=== PATIENT | male | born 1935 | race Caucasian/White ===

== ENCOUNTER → 2016-04-13 | Outpatient (CLI) | payer MEDICARE ==
[2016-04-13 12:14] LABS: Basophils # (A) 0.1 k/uL (0-0.2); Basophils % (A) 1 %; CH 30.5; CHCM 33.7; Eosinophils # (A) 0.3 k/uL (0-0.7); Eosinophils % (A) 3 %; HCT 48.2 % (39.0-53.0); HDW 3.04; HGB 15.8 gm/dL (13.0-17.5); Luc # (Auto) 0.09; Luc % (Auto) 1; Lymphocytes # (A) 1.3 k/uL (1.0-4.8); Lymphocytes % (A) 15 %; MCH 29.8 pg (25.0-35.0); MCHC 32.7 g/dL (31.0-37.0); MCV 91.1 fL (80.0-100.0); Mean Platelet Volume 7.8; Monocytes # (A) 0.5 k/uL (0-1.0); Monocytes % (A) 5 %; Neutrophils # (A) 6.4 k/uL (1.3-7.7); Neutrophils % (A) 75 %; RBC 5.28 m/uL (4.30-5.90); RDW 13.3 % (11.5-15.5); WBC 8.5 k/uL (3.8-10.6); WBC (Perox) 8.75
[2016-04-13 12:31] LABS: ALT 21 U/L (21-72); AST 18 U/L (17-59); Alkaline Phosphatase 74 U/L (38-126); Anion Gap 12 mmol/L; Blood Urea Nitrogen 15 mg/dL (9-20); C Reactive Protein 32.4 mg/L (<10.0); Calcium 9.8 mg/dL (8.4-10.2); Carbon Dioxide 30 mmol/L (22-30); Chloride 103 mmol/L (98-107); Creatine Kinase 41 U/L (55-170); Glucose 231 mg/dL (74-99); Non-African American GFR(MDRD) >60 (>60 ml/min/1.73 sqM); Potassium 4.5 mmol/L (3.5-5.1); Sodium 145 mmol/L (137-145); Total Bilirubin 0.9 mg/dL (0.2-1.3); Total Protein 7.4 g/dL (6.3-8.2)
--- NOTE | 2016-04-13 12:56 | XR ---
EXAMINATION TYPE: XR Hip Bilateral Complete DATE OF EXAM: 04/13/2016 12:25 PM COMPARISON: NONE TECHNIQUE: 4 views of the hip are submitted bilaterally. HISTORY: Pain There is no evidence of erosive change or acute fracture. Diffuse osteopenia noted. Moderate narrowing of the hip joints seen bilaterally with hypertrophic bianka nges. No acute fracture. Impression 1. Moderate arthropathy bilaterally with findings suggestive of femoral acetabular impingement.
--- NOTE | 2016-04-13 12:58 | XR ---
EXAM TYPE: LUMBAR SPINE X RAY SERIES COMPARISON: NONE HISTORY: Back pain TECHNIQUE: 4 views are submitted. FINDINGS: Alignment is anatomic. The pedicles are intact. The transverse processes are intact. There is no s pondylolysis or spondylolisthesis. There are 3 calcifications overlying the right kidney the largest measuring 5 mm. Severe degenerative disc disease L4-5 with facet arthropathy. Moderate degenerative disc disease L3-4 and L5-S1. Vascular calcification seen. IMPRESSION: 1. Multilevel degenerative disc disease. 2. Right renal calculi.
[2016-04-13 13:10] LABS: Hemoglobin A1C 6.7 % (4.2-6.1)
[2016-04-13 13:18] LABS: Vitamin B12 270 pg/mL
[2016-04-13 14:44] LABS: Erythrocyte Sedimentation Rate 18 mm/hr (0-15)
[2016-04-13 17:11] LABS: ANA w/Reflex to Titer POSITIVE (NEGATIVE)
== END ==
LOC: LABWHC1 11:48
PROVIDERS: ATTEND Internal Medicine
DX: M16.0 Bilateral primary osteoarthritis of hip (principal); M51.36 Other intervertebral disc degeneration, lumbar region; E11.9 Type 2 diabetes mellitus without complications; M35.3 Polymyalgia rheumatica; R53.1 Weakness
CPT/HCPCS: 36415; 72110; 73521; 80053; 82533; 82550; 82607; 83036; 84165; 84439; 84443; 85025; 85652; 86038; 86039; 86140; 86225; 86334; 86335

== ENCOUNTER → 2016-04-17 | Outpatient (CLI) | payer MEDICARE ==
[2016-04-19 11:06] LABS: Free Kappa Lt Chain Qnt, Serum 1.79 mg/dL (0.33 - 1.94); Kappa/Lambda Light Chain Ratio 1.67 (0.26 - 1.65)
== END | disposition home or self-care (01) ==
LOC: LABWHC1 09:03
PROVIDERS: ATTEND Internal Medicine
DX: Z03.89 Encounter for observation for other suspected diseases and conditions ruled out (principal)
CPT/HCPCS: 36415; 83883

== ENCOUNTER → 2016-04-27 | Outpatient (CLI) | payer MEDICARE ==
--- NOTE | 2016-04-27 12:37 | MR ---
EXAMINATION TYPE: MR lumbar spine wo/w con DATE OF EXAM: 04/27/2016 7:35 AM COMPARISON: Radiographs 04/13/2016 HISTORY: 81-year-old male with degenerative disc disease, DJD, hip and leg pain, history of lumbar winkler rgeries Technique: Multiplanar, multisequence images of the lumbar spine were obtained before and after admin istration of 20 mL intravenous MultiHance gadolinium contrast. FINDINGS: Vertebral body heights are preserved. Alignment is maintained. Heterogeneous marrow signal with fatty matrix hemangioma within T12 and S1 vertebral bodies. No suspi cious bone marrow replacement. There is multilevel moderate degenerative disc disease characterized by desiccated and bulging discs. Moderate disc interspace narrowing at L4-L5 with fatty Modic type II endplate changes anteriorly at this level and to a lesser extent at other levels in the upper to mid lumbar spine. There are endplate Schmorl's nodes involving L1-L2, L2-L3, and L3-L4. There appears to be prior right-sided L5 laminotomy defect. Hypertrophic facet arthropathy mid to lower lumbar spine. There is a component of mild congenital spinal canal narrowing in the lumbar spine with AP canal dime nsion of 1.2 cm. Conus medullaris is normal. At T12-L1, mild diffuse disc bulge and no significant spinal canal or neuroforaminal stenosis. At L1-L2, diffuse disc bulge and facet degenerative change with ligamentum flavum thickening. Changes accentuate the mild congenital spinal canal stenosis and also contribute to minimal bilateral inferi or neuroforaminal stenosis. At L2/L3, there is diffuse disc bulge with ligamentum flavum thickening, facet arthropathy, and promi nent dorsal epidural fat. Changes result in a moderate spinal canal stenosis. Some CSF signal remains visualized. There is mild bilateral neural foraminal stenosis. At L3-L4, diffuse disc bulge with facet arthropathy and ligamentum flavum thickening. Changes result in bilateral lateral recess stenosis with moderate spinal canal stenosis. Some CSF signal remains vis ualized. There is also moderate bilateral neural foraminal stenosis. At L4-L5, bilateral hypertrophic facet arthropathy. Eccentric right intraforaminal disc protrusion. L igamentum flavum thickening. No significant spinal canal stenosis. However, disc material and facet s purring probably abuts the traversing right L5 nerve root. There is moderate to severe right and mode rate left neural foraminal stenosis. At L5-S1, diffuse disc bulge and facet degenerative change. Changes result in mild left and mild-to-m oderate right neuroforaminal stenosis without spinal canal stenosis. There is a 6 mm focus of enhancement that appears intradural opposite the L1 level posteriorly along the midline second smaller 4 mm focus at the L2-L3 level along the midline. No suspicious perineural enhancement. No prevertebral or paravertebral soft tissue abnormality seen. IMPRESSION: 1. Moderate multilevel degenerative disc disease with scattered Modic type II endplate change, greate st at L4-L5. Additional hypertrophic facet arthropathy. 2. 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 3. Previous right L5 laminotomy defect. No suspicious perineural enhancement. 4. The spinal canal at L2-L3 and L3-L4 is tight with moderate spinal canal stenoses. 5. There is a right intraforaminal disc protrusion at L4-L5. Disc material may abut the traversing ri ght L5 nerve root here. Variable moderate neuroforaminal stenoses as outlined above, greatest on the right at L4-L5. 6. A 6 mm and 4 mm focus of enhancement at the L1 and L2-L3 level, respectively, located within the c entral aspect of the spinal canal. Findings may represent small nerve sheath tumors or meningiomas. C onsider 6 month follow-up exam.
== END | disposition home or self-care (01) ==
LOC: RADMRIMAIN 06:41
PROVIDERS: ATTEND Internal Medicine
DX: M51.36 Other intervertebral disc degeneration, lumbar region (principal); M99.73 Connective tissue and disc stenosis of intervertebral foramina of lumbar region; M51.26 Other intervertebral disc displacement, lumbar region; M46.96 Unspecified inflammatory spondylopathy, lumbar region; Z98.890 Other specified postprocedural states
CPT/HCPCS: 72158; A9577

== ENCOUNTER → 2016-07-05 | Outpatient (CLI) | payer MEDICARE ==
[2016-07-06 03:14] LABS: Lyme Antibodies Total(IgG/IgM) 0.09 (<0.90)
[2016-07-11 21:16] LABS: Mercury Whole Blood < 2 mcg/L (< 11)
== END | disposition home or self-care (01) ==
LOC: LABWHC1 09:15
PROVIDERS: ATTEND Internal Medicine
DX: G62.9 Polyneuropathy, unspecified (principal)
CPT/HCPCS: 36415; 82175; 82570; 83655; 83825; 84165; 86618

== ENCOUNTER 2016-07-15 14:14 | Emergency (ER) | payer MEDICARE ==
[2016-07-15 14:20] VITALS: BP 154/77; PULSE 111; RESP 18; TEMP 97.4
--- NOTE | 2016-07-15 14:36 | ED ---
General Adult HPI - General Chief complaint: Abdominal Pain Stated complaint: Constipation Time Seen by Provider: 07/15/16 14:27 Source: patient, RN notes reviewed Mode of arrival: ambulatory Limitations: no limitations - History of Present Illness Initial comments: Patient 81-year-old male who presents emergency room today with chief complaint of constipation. Patient does admit that he's been 2 days since had a bowel movement. He does admit that he feels some pressure in his rectum. States feels like he needs to have a bowel movement but has been unable to. States he does take a fiber tab. Patient states been unable to have bowel movement last 2 days. He denies any other complaints or symptoms. - Related Data Home Medications Medication Instructions Recorded Confirmed Tamsulosin HCl [Flomax] 0.4 mg PO HS 10/06/13 07/15/16 metFORMIN HCL [Glucophage] 500 mg PO DAILY 10/06/13 07/15/16 Aspirin 81 mg PO DAILY 07/15/16 07/15/16 Cholecalciferol [Vitamin D3] 1,000 unit PO DAILY 07/15/16 07/15/16 Cyanocobalamin [Vitamin B-12] 500 mcg PO DAILY 07/15/16 07/15/16 Dutasteride [Avodart] 0.5 mg PO HS 07/15/16 07/15/16 Magnesium Oxide [Magnesium] 500 mg PO DAILY 07/15/16 07/15/16 Saw Jeffers 1,200 mg PO DAILY 07/15/16 07/15/16 Allergies Allergy/AdvReac Type Severity Reaction Status Date / Time No Known Allergies Allergy Verified 07/15/16 14:39 Review of Systems ROS Statement: Those systems with pertinent positive or pertinent negative responses have been documented in the HPI. ROS Other: All systems not noted in ROS Statement are negative. Past Medical History Past Medical History: Diabetes Mellitus Additional Past Medical History / Comment(s): neuropathy History of Any Multi-Drug Resistant Organisms: None Reported Past Surgical History: Back Surgery, Bowel Resection Past Psychological History: No Psychological Hx Reported Smoking Status: Never smoker Past Alcohol Use History: None Reported Past Drug Use History: None Reported General Exam - General Exam Comments Initial Comments: General: The patient is awake and alert, in no distress, and does not appear acutely ill. Eye: Pupils are equal, round and reactive to light, extra-ocular movements are intact. No nystagmus. There is normal conjunctiva bilaterally. No signs of icterus. Ears, nose, mouth and throat: There are moist mucous membranes and no oral lesions. Neck: The neck is supple, there is no tenderness or JVD. Cardiovascular: There is a regular rate and rhythm. No murmur, rub or gallop is appreciated. Respiratory: Lungs are clear to auscultation, respirations are non-labored, breath sounds are equal. No wheezes, stridor, rales, or rhonchi. Gastrointestinal: Soft, non-distended, non-tender abdomen without masses or organomegaly noted. There is no rebound or guarding present. No CVA tenderness. Bowel sounds are unremarkable. Musculoskeletal: Normal ROM, no tenderness. Strength 5/5. Sensation intact. Pulses equal bilaterally 2+. Neurological: A&O x 3. CN II-XII intact, There are no obvious motor or sensory deficits. Coordination appears grossly intact. Speech is normal. Skin: Skin is warm and dry and no rashes or lesions are noted. Psychiatric: Cooperative, appropriate mood & affect, normal judgment. Limitations: no limitations Course Vital Signs 07/15/16 14:17 Temperature 97.4 F L Pulse Rate 111 H Respiratory 18 Rate Blood Pressure 154/77 O2 Sat by Pulse 96 Oximetry Medical Decision Making - Medical Decision Making Patient was able have bowel movement here in the emergency room after a enema. He states she's feeling much better at this time. Patient will be discharged home. Disposition Clinical Impression: Constipation Disposition: HOME SELF-CARE Condition: Good Instructions: Constipation (ED) Additional Instructions: Please follow-up with family doctor in the next 2 days of symptoms have not improved. Please return to emergency room if the symptoms increase or worsen or for any other concerns. Referrals: Armand Han MD [Primary Care Provider] - 1-2 days Time of Disposition: 15:29
--- NOTE | 2016-07-15 14:50 | XR ---
EXAMINATION TYPE: XR KUB DATE OF EXAM ORDERED: 07/15/2016 HISTORY: pain. COMPARISON: Previous study dated 06/25/2012. FINDINGS: The abdominal gas pattern is within normal limits. There is no evidence of obstruction or free air. No unusual calcifications are seen. There are mild degenerative changes within the spine. IMPRESSION: NO ACUTE INTRA-ABDOMINAL ABNORMALITY.
== END 2016-07-15 15:38 | disposition home or self-care (01) ==
LOC: EC 14:14
DX: K59.00 Constipation, unspecified (principal); E11.9 Type 2 diabetes mellitus without complications; Z79.82 Long term (current) use of aspirin; Z79.84 Long term (current) use of oral hypoglycemic drugs; Z79.899 Other long term (current) drug therapy; Z90.49 Acquired absence of other specified parts of digestive tract
CPT/HCPCS: 74000; 99284

== ENCOUNTER → 2017-09-26 | Outpatient (CLI) | payer MEDICARE ==
--- NOTE | 2017-09-26 11:41 | US ---
EXAMINATION TYPE: US abdomen limited DATE OF EXAM: 09/26/2017 COMPARISON: CT CLINICAL HISTORY: R10.11 RUQ Abdominal Pain. EXAM MEASUREMENTS: Liver Length: 13.9 cm Gallbladder Wall: 0.3 cm CBD: 0.5 cm Right Kidney: 9.9 x 5.4 x 4.9 cm Technically difficult study due to overlying bowel gas. Pancreas: not visualized due to midline bowel gas Liver: limited to intercostal views, complex cyst left lobe measures 1.9 x 1.0 x 1.2 cm Gallbladder: No stones seen Evidence for sonographic Carcamo's sign: No CBD: wnl Right Kidney: No hydronephrosis or masses seen IMPRESSION: 1. No sonographic evidence of cholelithiasis or acute cholecystitis. 2. Probable hepatic cyst within internal septation measuring 1.9 cm. Although there is increased size from the prior exam of 2011 this may be related to a gradient measurement. 3. Sonographic findings most commonly related to hepatic steatosis. Correlate with liver function lakshmi ts.
[2017-09-26 11:53] LABS: Appearance,Urine Clear (Clear); Bilirubin,Urine Negative (Negative); Blood,Urine Negative (Negative); Color,Urine Yellow; Glucose,Urine (UA) Negative (Negative); HCT 47.5 % (39.0-53.0); Ketones,Urine Negative (Negative); Leukocyte Esterase,Urine Negative (Negative); MCH 30.1 pg (25.0-35.0); MCHC 33.7 g/dL (31.0-37.0); MCV 89.2 fL (80.0-100.0); Mean Platelet Volume 7.4; Nitrite,Urine Negative (Negative); PH, Urine 5.5 (5.0-8.0); Platelet Count 219 k/uL (150-450); Protein,Urine Negative (Negative); RBC 5.32 m/uL (4.30-5.90); RDW 13.7 % (11.5-15.5); Specific Gravity,Urine 1.012 (1.001-1.035); Urobilinogen,Urine <2.0 mg/dL (<2.0); WBC 8.7 k/uL (3.8-10.6)
[2017-09-26 12:25] LABS: Albumin 3.9 g/dL (3.5-5.0); Calcium 9.6 mg/dL (8.4-10.2); Potassium 4.9 mmol/L (3.5-5.1); Total Bilirubin 0.7 mg/dL (0.2-1.3); Total Protein 6.2 g/dL (6.3-8.2)
[2017-09-26 12:53] LABS: Prostate Specific Antigen 1.4 ng/mL (0.00-4.00)
[2017-09-26 20:23] LABS: Hemoglobin A1C 7.1 % (4.0-6.0)
== END | disposition home or self-care (01) ==
LOC: RADUSWWP 10:54
PROVIDERS: ATTEND Internal Medicine
DX: R10.11 Right upper quadrant pain (principal); Z00.00 Encounter for general adult medical examination without abnormal findings; E11.9 Type 2 diabetes mellitus without complications; E78.5 Hyperlipidemia, unspecified; Z12.5 Encounter for screening for malignant neoplasm of prostate
CPT/HCPCS: 36415; 76705; 80053; 80061; 81003; 83036; 84153; 85027

== ENCOUNTER → 2017-11-22 | Outpatient (CLI) | payer MEDICARE ==
--- NOTE | 2017-11-22 13:41 | CT ---
EXAMINATION TYPE: CT chest abdomen wo con DATE OF EXAM: 11/22/2017 COMPARISON: 12/03/2011 HISTORY: Right flank pain radiating superiorly x1 month CT DLP: 1225 mGycm Automated exposure control for dose reduction was used. FINDINGS: CHEST: There is a small pericardial effusion. There is dense coronary artery calcification and mild cardiome walt. There is no pneumothorax. There are 2 pulmonary nodules within the right upper lobe measuring approximately 2 to 3 mm. There is a 5 mm pulmonary nodule in the left upper lobe axial image 15 Atherosclerotic change of the vasculature. Aorta of normal caliber. Subsegmental linear changes are s een at the lung bases suggestive of scar or atelectasis and there is basilar mild bronchiectasis. Ple ural-based thickening noted posteriorly. Assessment for adenopathy limited by lack of contrast. No obvious pathologic Hypertrophic and degenerative change of the vertebral column. ABDOMEN: Lack of contrast significantly limits the exam. Hypodensities within the liver are nonspecific but appear to been present on the prior CT scan 2011 a nd therefore likely represent simple cysts. Gallbladder, adrenal glands and spleen have a normal appearance. Pancreatic calcifications appear to be outside the course of the pancreatic and common bile duct. Als o are stable from prior exam. No hydronephrosis. There is a nonobstructing 2 mm mid to upper pole renal calculus. There is atherosclerotic change of aorta which is of normal caliber. Assessment of the visualized portions of bowel demonstrate colonic diverticulosis. Colon and stomach are decompressed and limited in evaluation. There are few prominent small bowel loops in the abdomen hypertrophic and degenerative change of the spine noted. Canal stenosis involving the lower lumbar re gion IMPRESSION: 1. Nonobstructing left renal calculus. 2. Multiple 5 mm less pulmonary nodules within the lungs are too small to characterize as discussed a dione. Recommend 6 month follow-up for further evaluation to assess stability. 3. There are few prominent small bowel loops in the anterior abdomen a nonspecific finding. No surrou nding inflammatory changes. Correlate for localized ileus or enteritis.
== END | disposition home or self-care (01) ==
LOC: RADCTMAIN 13:10
PROVIDERS: ATTEND Internal Medicine
DX: R91.8 Other nonspecific abnormal finding of lung field (principal); N20.0 Calculus of kidney
CPT/HCPCS: 71250; 74150

== ENCOUNTER → 2018-12-29 | Outpatient (CLI) | payer MEDICARE ==
--- NOTE | 2018-12-29 07:55 | CT ---
EXAMINATION TYPE: CT brain wo con DATE OF EXAM: 12/29/2018 COMPARISON: 02/23/2013 HISTORY: headache post trauma CT DLP: [address] of the brain was performed. The ventricles, basal cisterns and sulci overlying the cerebral convexities demonstrate mild enlargem ent. There is no evidence for intracranial hemorrhage or sulcal effacement. There is decreased attenuation about the periventricular white matter and deep white matter of both c erebral hemispheres, compatible with chronic small vessel ischemia. Differential diagnosis does inclu de demyelination. No mass effects are seen.No midline shift. Osseous calvarium is intact. If symptoms persist consider MRI. IMPRESSION: 1. Age related atrophic and chronic small vessel ischemic change without acute intracranial process s een at this time.
== END ==
LOC: RADCTMAIN 07:28
PROVIDERS: ATTEND Internal Medicine
DX: G31.1 Senile degeneration of brain, not elsewhere classified (principal); I67.82 Cerebral ischemia
CPT/HCPCS: 70450

== ENCOUNTER 2019-12-26 06:43 | Day surgery (SDC) | payer MEDICARE, OTHER ==
[2019-12-24 16:24] VITALS: BMI 29.4
[~2019-12-26 06:43] MED LIST: LACTATED RINGERS 1,000 ML IV SCH; LIDOCAINE 1% (10MG/ML) FOR IV START INTRADERMA PRN; TETRACAINE 0.5% OPHTH (PF) DROPS 4 ML BTL OP ONE
[2019-12-26] MEDS: CYCLOPENTOLATE 1% OPHTH SOLN 2 ML BTL OP ONE ×3 (07:19→07:31)
[2019-12-26] MEDS: PHENYLEPHRINE 2.5% OPHTH DRP 2ML OP NR ×3 (07:22→07:37)
[2019-12-26 07:33] VITALS: TEMP 97
[2019-12-26 07:42] LABS: Glucose,Whole Blood 149 mg/dL (75-99)
[2019-12-26] MEDS ORDERED: MIDAZOLAM 2 MG/2 ML VIAL ONE (08:03)
[2019-12-26] MEDS ORDERED: fentaNYL (PF) 50 MCG/ML 2 ML AMP ONE (08:03)
[2019-12-26] MEDS ORDERED: BALANCED SALT IRRIG SOLN COMB2 15 ML IRRIG.SOLN IRRIGATION ONE (08:15)
[2019-12-26] MEDS ORDERED: DUOVISC KIT (GREEN BOX) INTRAOCULA ONE (08:15)
[2019-12-26] MEDS ORDERED: LIDOCAINE 1% (PF) 10MG/ML VIAL MISCELLANE ONE (08:15)
[2019-12-26] MEDS ORDERED: EPINEPHrine (PF) 0.3 ML in BALANCED SALT IRRIG SOLN COMB2 500 ML IRRIGATION ONE (08:17)
[2019-12-26] MEDS: TIMOLOL 0.5% OPHTH DROPS 5 ML BTL OP ONE ×5 (08:22→08:45)
[2019-12-26] MEDS: MOXIFLOXACIN HCL 0.5% DROPS 3 ML BTL OP ONE ×5 (08:23→08:45)
[2019-12-26] MEDS ORDERED: HYALURONATE SODIUM INTRAOCULAR 1 EACH SYRINGE (12MG/ML) INTRAOCULA ONE (08:31)
[2019-12-26] MEDS ORDERED: ATROPINE OPHTH SOLN 1% 5ML BTL RIGHT EYE ONE (08:45)
--- NOTE | 2019-12-26 08:47 | P.OP ---
Date of Procedure: 12/26/19 Preoperative Diagnosis: NS & CS Postoperative Diagnosis: same Procedure(s) Performed: PIOL, OD Implants: AO1 UV 21.75 & [id number] 13.00 Anesthesia: MAC Surgeon: Hector Fernandez Estimated Blood Loss (ml): 0 Pathology: none sent Condition: stable Disposition: same day Indications for Procedure: blurry vision Operative Findings: No complications
[2019-12-26 09:12] VITALS: BP 144/85; PULSE 68; RESP 16
--- NOTE | 2019-12-26 23:32 | OP ---
OPERATIVE REPORT DATE OF SURGERY: 12/26/2019. PROCEDURE: Phacoemulsification of cataract and intraocular lens implant of the right eye. 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 POSTOPERATIVE DIAGNOSIS: Nuclear sclerosis, cortical sclerosis and floppy iris syndrome. SURGEON: Dr. Hector Fernandez. ANESTHESIA: Topical. ESTIMATED BLOOD LOSS: None. SPECIMEN TAKEN: None. NARRATIVE: After obtaining the appropriate consent, the patient was brought to the operating room. There he was placed under cardiac monitoring, prepped and draped in the usual sterile manner. He was approached from his right temporal side, and in the center of his cornea, using the Purkinje reflex as optical center, a 5.5 mm Kentrell ring was used to create a delineation ring on the cornea. At the 11 o'clock position a 1.1 mm MVR blade was used to create a paracentesis port. Through this opening 1% Xylocaine MPF with 1:1000 lidocaine MPF and balanced salt solution in a ratio of 1-2-1 was injected into the anterior chamber. This was followed by stabilization of the anterior chamber with Viscoat. At the 9 o'clock position, a 2.8 mm missy keratome was used to create a self- sealing corneal flap incision in a Langerman's fashion. It was determined at this point that the iris was not adequately dilating, and a 7 mm Malyugin Ring was inserted on the pupillary sphincter. This was followed by a continuous tear capsulorrhexis which was begun with a cystotome and completed using the Utrata forceps. Care was taken to ensure that the size of the rhexis was at least the size of the ring previously placed on the patient's cornea. Hydrodissection and hydrodelineation of the lens was accomplished in 25.72 seconds utilizing Phaco Chop at 15% power. Additional Xylocaine MPF was instilled into the anterior chamber. This was followed by removal of the remaining cortex under irrigation and aspiration as well as careful polishing of the posterior capsule in capsule vacuum mode. Provisc was then used to stabilize the capsular bag, and using Carlisle and Pepose capsule polishers, the entire underside of the anterior capsule was polished using these instruments. The internal opening of the temporal incision was enlarged slightly with a missy keratome. This was followed by placement of a 13 mm capsular tension ring into the capsular bag without difficulty. This was then followed by placement of the Bausch and Lomb Crystalens model AO1UV 21.75 diopter into the capsular bag. The lens was rotated multiple times to ensure no residual cortical material was identified, and irrigation and aspiration was used to remove any remaining cortical material from the capsular bag as well as the viscoelastic from in and around the intraocular lens. A small amount of viscoelastic was once again placed into the anterior chamber and the Malyugin Ring was disinserted and removed from the anterior chamber. The remaining viscoelastic was then removed with one more cleaning using the irrigation and aspiration. The eye was then brought to normal intraocular pressure through the paracentesis port, and to ensure watertight integrity, ReSure was placed on the temporal incision as well as over the paracentesis. The patient then received 2 drops of 0.5% timolol followed by 2 drops of moxifloxacin and 2 drops of 1% atropine. He was then lightly patched and shielded in the usual manner. There were no complications from the procedure. He tolerated the procedure well and was returned to [facility] in good condition. MMPARRISHL / IJN: [id number] /
== END 2019-12-26 09:37 | disposition home or self-care (01) ==
LOC: OR 06:43
PROVIDERS: ATTEND Ophthalmology
DX: H25.13 Age-related nuclear cataract, bilateral (principal); H25.013 Cortical age-related cataract, bilateral; H21.81 Floppy iris syndrome; H52.02 Hypermetropia, left eye; H52.223 Regular astigmatism, bilateral; H52.11 Myopia, right eye; E11.9 Type 2 diabetes mellitus without complications; M19.90 Unspecified osteoarthritis, unspecified site; Z79.84 Long term (current) use of oral hypoglycemic drugs; Z79.899 Other long term (current) drug therapy; Z90.49 Acquired absence of other specified parts of digestive tract; Z98.890 Other specified postprocedural states; Z83.3 Family history of diabetes mellitus; Z82.3 Family history of stroke; Z80.9 Family history of malignant neoplasm, unspecified; Q10.3 Other congenital malformations of eyelid
CPT/HCPCS: 66982; L8610; V2632; V2788; J2250; J0171; J3010; J2001

== ENCOUNTER 2020-01-02 14:29 | Emergency (ER) | payer MEDICARE, OTHER ==
[2020-01-02 14:44] VITALS: TEMP 97.5
[2020-01-02] MEDS ORDERED: SODIUM CHLORIDE 0.9% 500 ML 500 ML IV ONE (15:33)
[2020-01-02 15:52] LABS: Basophils # (A) 0.1 k/uL (0-0.2); Basophils % (A) 1 %; Eosinophils # (A) 0.2 k/uL (0-0.7); Eosinophils % (A) 2 %; HCT 50.4 % (39.0-53.0); HGB 17.2 gm/dL (13.0-17.5); Lymphocytes # (A) 1.4 k/uL (1.0-4.8); Lymphocytes % (A) 15 %; MCH 30.9 pg (25.0-35.0); MCV 90.9 fL (80.0-100.0); Mean Platelet Volume 7.7; Monocytes # (A) 0.5 k/uL (0-1.0); Monocytes % (A) 6 %; Neutrophils # (A) 7.3 k/uL (1.3-7.7); Neutrophils % (A) 76 %; Platelet Count 219 k/uL (150-450); RBC 5.55 m/uL (4.30-5.90); WBC 9.6 k/uL (3.8-10.6)
[2020-01-02 16:07] LABS: Albumin 4.6 g/dL (3.5-5.0); Calcium 9.8 mg/dL (8.4-10.2); Potassium 4.2 mmol/L (3.5-5.1); Total Bilirubin 1.4 mg/dL (0.2-1.3); Total Protein 7.5 g/dL (6.3-8.2)
--- NOTE | 2020-01-02 17:01 | CT ---
EXAMINATION TYPE: CT abdomen pelvis w con DATE OF EXAM: 01/02/2020 COMPARISON: 11/22/2017. HISTORY: Pelvic pain with constipation. CT DLP: 1439.3 mGycm Automated exposure control for dose reduction was used. TECHNIQUE: Helical acquisition of images was performed from the lung bases through the pelvis. CONTRAST: Performed without Oral Contrast and with IV Contrast, patient injected with 100 mL of Isovue 300. FINDINGS: LUNG BASES: Mild atelectasis. LIVER/GB: No acute abnormality is appreciated. Scattered multiple low attenuating hepatic foci measur ing up to 9 mm and most compatible with benign cysts. PANCREAS: No significant abnormality is seen. SPLEEN: No significant abnormality is seen. ADRENALS: No significant abnormality is seen. KIDNEYS: No significant abnormality is seen. FREE AIR: No free air is visualized. RETROPERITONEAL ADENOPATHY: None visualized REPRODUCTIVE ORGANS: No significant abnormality is seen URINARY BLADDER: No significant abnormality is seen. PELVIC ADENOPATHY: None visualized. OSSEOUS STRUCTURES: No acute abnormality is seen. Multilevel mild to moderate thoracolumbar spondylo sis. BOWEL: No significant abnormality is seen. OTHER: Moderate to advanced atherosclerotic disease. Small bilateral fat-containing inguinal hernias. Small focal hyperdensity within the penile bulb, most likely calcification. IMPRESSION: NO ACUTE ABNORMALITY. CHRONIC FINDINGS ABOVE.
[2020-01-02] MEDS ORDERED: GLYCERIN ADULT SUPPOSITORY 1 EACH RECTAL STA (17:10)
--- NOTE | 2020-01-02 17:12 | ED ---
Abdominal Pain HPI - General Chief Complaint: Abdominal Pain Stated Complaint: Constipation Time Seen by Provider: 01/02/20 15:29 Source: patient Mode of arrival: ambulatory Limitations: no limitations - History of Present Illness Initial Comments: 7-year-old male presenting today for chief complaint of constipation states no bowel movement in 2 days. Patient states usually enema helps. He states he is presented for this in the past. Patient states he is diffuse nonlocalized abdominal pain denies a chest pain shortness of breath fevers nausea or v omiting. Patient denies diarrhea he denies any bloody stools or dark stools. Patient is no additional complaints upon arrival patient appears nontoxic - Related Data Home Medications Medication Instructions Recorded Confirmed Tamsulosin HCl [Flomax] 0.4 mg PO HS 10/06/13 12/26/19 metFORMIN HCL [Glucophage] 500 mg PO QAM 10/06/13 12/26/19 Dutasteride [Avodart] 0.5 mg PO HS 07/15/16 12/26/19 Celecoxib [CeleBREX] 200 mg PO HS 12/24/19 12/26/19 DULoxetine HCL [Cymbalta] 30 mg PO HS 12/24/19 12/26/19 Gabapentin 300 mg PO HS 12/24/19 12/26/19 Pravastatin Sodium [Pravachol] 40 mg PO QAM 12/24/19 12/26/19 Previous Rx's Medication Instructions Recorded Magnesium Citrate 296 ml PO ONETIME 1 Days #296 ml 01/02/20 Allergies Allergy/AdvReac Type Severity Reaction Status Date / Time No Known Allergies Allergy Verified 01/02/20 14:44 Review of Systems ROS Statement: Those systems with pertinent positive or pertinent negative responses have been documented in the HPI. ROS Other: All systems not noted in ROS Statement are negative. Past Medical History Past Medical History: Diabetes Mellitus, Osteoarthritis (OA), Prostate Disorder, Skin Disorder Additional Past Medical History / Comment(s): Neuropathy. Psoriasis. History of Any Multi-Drug Resistant Organisms: None Reported Past Surgical History: Back Surgery, Bowel Resection Additional Past Surgical History / Comment(s): Back surgery X3. Past Anesthesia/Blood Transfusion Reactions: No Reported Reaction Past Psychological History: No Psychological Hx Reported Smoking Status: Never smoker Past Alcohol Use History: None Reported Past Drug Use History: None Reported - Past Family History Father Family Medical History: Cancer Additional Family Medical History / Comment(s): Colon Cancer. Brother(s) Family Medical History: Cancer Additional Family Medical History / Comment(s): Colon Cancer. General Exam - General Exam Comments Initial Comments: General: The patient is awake and alert, in no distress Eye: +3 mm pupils are equal, round and reactive to light, extra-ocular movements are intact. No nystagmus. There is normal conjunctiva bilaterally. No signs of icterus. Ears, nose, mouth and throat: There are moist mucous membranes and no oral lesions. Neck: The neck is supple, there is no tenderness or JVD. Cardiovascular: There is a regular rate and rhythm. No murmur, rub or gallop is appreciated. Respiratory: Lungs are clear to auscultation, respirations are non-labored, breath sounds are equal. No wheezes, stridor, rales, or rhonchi. Gastrointestinal: Soft, non-distended,diffuse tenderness to palpation of abdomen, abdomen without masses or organomegaly noted. There is no rebound or guarding present. Musculoskeletal: Normal ROM, no tenderness. Strength 5/5. Sensation intact. Radial pulses equal bilaterally 2+. Neurological: A&O x 3. CN II-XII intact grossly, There are no obvious motor or sensory deficits. Coordination appears grossly intact. Speech is normal. Skin: Skin is warm and dry and no rashes or lesions are noted. Psychiatric: Cooperative, appropriate mood & affect, normal judgment. Limitations: no limitations Course Vital Signs 01/02/20 01/02/20 14:41 18:36 Temperature 97.5 F L Pulse Rate 110 H 88 Respiratory 16 18 Rate Blood Pressure 144/84 140/80 O2 Sat by Pulse 96 100 Oximetry Medical Decision Making - Medical Decision Making Labs stable. CT (-). Patient given enema per requested. Patient is agreeable to discharge with outpatient f/u. Dr. Howard agreeable to care plan. - Lab Data Result diagrams: 01/02/20 15:41 01/02/20 15:41 Lab Results 01/02/20 01/02/20 01/02/20 Range/Units 15:41 15:41 15:41 WBC 9.6 (3.8-10.6) k/uL RBC 5.55 (4.30-5.90) m/uL Hgb 17.2 (13.0-17.5) gm/dL Hct 50.4 (39.0-53.0) % MCV 90.9 (80.0-100.0) fL MCH 30.9 (25.0-35.0) pg MCHC 34.0 (31.0-37.0) g/dL RDW 13.0 (11.5-15.5) % Plt Count 219 (150-450) k/uL MPV 7.7 Neutrophils % 76 % Lymphocytes % 15 % Monocytes % 6 % Eosinophils % 2 % Basophils % 1 % Neutrophils # 7.3 (1.3-7.7) k/uL Lymphocytes # 1.4 (1.0-4.8) k/uL Monocytes # 0.5 (0-1.0) k/uL Eosinophils # 0.2 (0-0.7) k/uL Basophils # 0.1 (0-0.2) k/uL Sodium 137 (137-145) mmol/L Potassium 4.2 (3.5-5.1) mmol/L Chloride 102 (98-107) mmol/L Carbon Dioxide 27 (22-30) mmol/L Anion Gap 8 mmol/L BUN 14 (9-20) mg/dL Creatinine 0.96 (0.66-1.25) mg/dL Est GFR (CKD-EPI)AfAm 84 (>60 ml/min/1.73 sqM) Est GFR (CKD-EPI)NonAf 72 (>60 ml/min/1.73 sqM) Glucose 127 H (74-99) mg/dL Plasma Lactic Acid Sal (0.7-2.0) mmol/L Calcium 9.8 (8.4-10.2) mg/dL Total Bilirubin 1.4 H (0.2-1.3) mg/dL AST 26 (17-59) U/L ALT 13 (4-49) U/L Alkaline Phosphatase 56 (38-126) U/L Total Protein 7.5 (6.3-8.2) g/dL Albumin 4.6 (3.5-5.0) g/dL Amylase 101 (30-110) U/L Lipase 167 (23-300) U/L Urine Color Light Yellow Urine Appearance Clear (Clear) Urine pH 6.0 (5.0-8.0) Ur Specific [place] 1.021 (1.001-1.035) Urine Protein Negative (Negative) Urine Glucose (UA) Negative (Negative) Urine Ketones Negative (Negative) Urine Blood Negative (Negative) Urine Nitrite Negative (Negative) Urine Bilirubin Negative (Negative) Urine Urobilinogen <2.0 (<2.0) mg/dL Ur Leukocyte Esterase Negative (Negative) 01/02/20 Range/Units 15:41 WBC (3.8-10.6) k/uL RBC (4.30-5.90) m/uL Hgb (13.0-17.5) gm/dL Hct (39.0-53.0) % MCV (80.0-100.0) fL MCH (25.0-35.0) pg MCHC (31.0-37.0) g/dL RDW (11.5-15.5) % Plt Count (150-450) k/uL MPV Neutrophils % % Lymphocytes % % Monocytes % % Eosinophils % % Basophils % % Neutrophils # (1.3-7.7) k/uL Lymphocytes # (1.0-4.8) k/uL Monocytes # (0-1.0) k/uL Eosinophils # (0-0.7) k/uL Basophils # (0-0.2) k/uL Sodium (137-145) mmol/L Potassium (3.5-5.1) mmol/L Chloride (98-107) mmol/L Carbon Dioxide (22-30) mmol/L Anion Gap mmol/L BUN (9-20) mg/dL Creatinine (0.66-1.25) mg/dL Est GFR (CKD-EPI)AfAm (>60 ml/min/1.73 sqM) Est GFR (CKD-EPI)NonAf (>60 ml/min/1.73 sqM) Glucose (74-99) mg/dL Plasma Lactic Acid Sal 1.7 (0.7-2.0) mmol/L Calcium (8.4-10.2) mg/dL Total Bilirubin (0.2-1.3) mg/dL AST (17-59) U/L ALT (4-49) U/L Alkaline Phosphatase (38-126) U/L Total Protein (6.3-8.2) g/dL Albumin (3.5-5.0) g/dL Amylase (30-110) U/L Lipase (23-300) U/L Urine Color Urine Appearance (Clear) Urine pH (5.0-8.0) Ur Specific [place] (1.001-1.035) Urine Protein (Negative) Urine Glucose (UA) (Negative) Urine Ketones (Negative) Urine Blood (Negative) Urine Nitrite (Negative) Urine Bilirubin (Negative) Urine Urobilinogen (<2.0) mg/dL Ur Leukocyte Esterase (Negative) Disposition Clinical Impression: Constipation Disposition: HOME SELF-CARE Condition: Good Instructions (If sedation given, give patient instructions): Constipation (ED) Additional Instructions: Please use medication as discussed. Please follow-up with family doctor in the next 2 days. Please return to emergency room if the symptoms increase or worsen or for any other concerns. Prescriptions: Magnesium Citrate 296 ml PO ONETIME 1 Days #296 ml Is patient prescribed a controlled substance at d/c from ED?: No Referrals: Juan Cannon MD [Primary Care Provider] - 1-2 days Time of Disposition: 17:12
[2020-01-02 17:39] LABS: Appearance,Urine Clear (Clear); Bilirubin,Urine Negative (Negative); Blood,Urine Negative (Negative); Color,Urine Light Yellow; Glucose,Urine (UA) Negative (Negative); Ketones,Urine Negative (Negative); Leukocyte Esterase,Urine Negative (Negative); Nitrite,Urine Negative (Negative); Protein,Urine Negative (Negative); Specific Gravity,Urine 1.021 (1.001-1.035); Urobilinogen,Urine <2.0 mg/dL (<2.0)
[2020-01-02 18:37] VITALS: BP 140/80; PULSE 88; RESP 18
== END 2020-01-02 18:34 | disposition home or self-care (01) ==
LOC: EC 14:29
DX: K59.00 Constipation, unspecified (principal); E11.40 Type 2 diabetes mellitus with diabetic neuropathy, unspecified; M19.90 Unspecified osteoarthritis, unspecified site; Z79.84 Long term (current) use of oral hypoglycemic drugs; Z79.899 Other long term (current) drug therapy; Z79.1 Long term (current) use of non-steroidal anti-inflammatories (NSAID); Z90.49 Acquired absence of other specified parts of digestive tract
CPT/HCPCS: 36415; 80053; 82150; 83605; 83690; 85025; 81003; 74177; 99284; 96360; 96361; Q9967

== ENCOUNTER 2020-08-28 19:15 | Observation (INO) | payer MEDICARE ==
[2020-08-28] MEDS ORDERED: ASPIRIN 81 MG PO STA (19:35)
[2020-08-28] MEDS ORDERED: NITROGLYCERIN OINT 1 INCH/GM PACKET TOPICAL STA (19:35)
--- NOTE | 2020-08-28 19:43 | ED ---
General Adult HPI - General Chief complaint: Chest Pain Stated complaint: Chest pain Time Seen by Provider: 08/28/20 19:20 Source: patient, RN notes reviewed, old records reviewed Mode of arrival: ambulatory Limitations: no limitations - History of Present Illness Initial comments: This is an 85-year-old male presents emergency Department with a past medical history of coronary artery disease and he had 2 stents placed 4 months ago. Patient comes in today because he was having chest pain in the center of his chest 30 minutes prior to arrival. Patient states was no radiation of the pain like there was when he had his heart attack. Patient denies any difficulty breathing or shortness of breath. Patient did take 2 aspirins at home. Patient states the pain is still there. Patient denies any diaphoretic episodes. Patient denies any nausea. Patient denies any recent fever chills or cough per patient denies any abdominal pain patient denies any leg swelling or calf tenderness. - Related Data Home Medications Medication Instructions Recorded Confirmed Tamsulosin HCl [Flomax] 0.4 mg PO HS 10/06/13 08/28/20 metFORMIN HCL [Glucophage] 500 mg PO DAILY 10/06/13 08/28/20 Dutasteride [Avodart] 0.5 mg PO HS 07/15/16 08/28/20 DULoxetine HCL [Cymbalta] 30 mg PO HS 12/24/19 08/28/20 Gabapentin 300 mg PO HS 12/24/19 08/28/20 Aspirin EC [Ecotrin Low Dose] 81 mg PO DAILY 08/28/20 08/28/20 Cholecalciferol [Vitamin D3 (25 25 mcg PO DAILY 08/28/20 08/28/20 Mcg = 1000 Iu)] Clopidogrel Bisulfate [Plavix] 75 mg PO DAILY 08/28/20 08/28/20 Docusate [Colace] 300 mg PO HS 08/28/20 08/28/20 Magnesium Oxide [[place]] 500 mg PO DAILY 08/28/20 08/28/20 Metoprolol Tartrate [Lopressor] 25 mg PO DAILY 08/28/20 08/28/20 Nitroglycerin Sl Tabs [Nitrostat] 0.4 mg SUBLINGUAL Q5M PRN 08/28/20 08/28/20 Rosuvastatin [Crestor] 10 mg PO HS 08/28/20 08/28/20 [place] 450 Mg 450 mg PO DAILY 08/28/20 08/28/20 Vitamin K2 100 mcg PO DAILY 08/28/20 08/28/20 Zinc 50 mg PO DAILY 08/28/20 08/28/20 Allergies Allergy/AdvReac Type Severity Reaction Status Date / Time No Known Allergies Allergy Verified 08/28/20 19:24 Review of Systems ROS Statement: Those systems with pertinent positive or pertinent negative responses have been documented in the HPI. ROS Other: All systems not noted in ROS Statement are negative. Past Medical History Past Medical History: Diabetes Mellitus, Myocardial Infarction (MA), Osteoarthritis (OA), Prostate Disorder, Skin Disorder Additional Past Medical History / Comment(s): Neuropathy. Psoriasis., History of Any Multi-Drug Resistant Organisms: None Reported Past Surgical History: Back Surgery, Bowel Resection, Heart Catheterization With Stent Additional Past Surgical History / Comment(s): Back surgery X3. Past Anesthesia/Blood Transfusion Reactions: No Reported Reaction Past Psychological History: No Psychological Hx Reported Smoking Status: Never smoker Past Alcohol Use History: None Reported Past Drug Use History: None Reported - Past Family History Father Family Medical History: Cancer Additional Family Medical History / Comment(s): Colon Cancer. Brother(s) Family Medical History: Cancer Additional Family Medical History / Comment(s): Colon Cancer. General Exam - General Exam Comments Initial Comments: GENERAL: Patient is well-developed and well-nourished. Patient is nontoxic and well- hydrated and is in mild distress. ENT: Neck is soft and supple. No significant lymphadenopathy is noted. Oropharynx is clear. Moist mucous membranes. Neck has full range of motion without eliciting any pain. EYES: The sclera were anicteric and conjunctiva were pink and moist. Extraocular movements were intact and pupils were equal round and reactive to light. Eyelids were unremarkable. PULMONARY: Unlabored respirations. Good breath sounds bilaterally. No audible rales rhonchi or wheezing was noted. CARDIOVASCULAR: There is a regular rate and rhythm without any murmurs gallops or rubs. ABDOMEN: Soft and nontender with normal bowel sounds. SKIN: Skin is clear with no lesions or rashes and otherwise unremarkable. NEUROLOGIC: Patient is alert and oriented x3. Cranial nerves II through XII are grossly intact. Motor and sensory are also intact. Normal speech, volume and content. Symmetrical smile. MUSCULOSKELETAL: Normal extremities with adequate strength and full range of motion. LYMPHATICS: No significant lymphadenopathy is noted PSYCHIATRIC: Normal psychiatric evaluation. Limitations: no limitations Course Vital Signs 08/28/20 08/28/20 19:20 20:34 Temperature 98.1 F 98.1 F Pulse Rate 69 73 Respiratory 18 18 Rate Blood Pressure 129/72 122/64 O2 Sat by Pulse 96 93 L Oximetry Medical Decision Making - Medical Decision Making EKG shows normal sinus rhythm at 76 bpm DE interval 282 QRS is 118 QT interval 392 QTC is 441. EKG shows no ST segment elevation or depression. Patient has a right bundle branch block Chest x-ray shows no acute abnormality. I started the patient heparin. Angina. I spoke with some physicians agreed to admit the patient admitted the patient I wrote admitting orders I consulted cardiology. I continued heparin and aspirin and Nitropaste on the floor. - Lab Data Result diagrams: 08/28/20 19:49 08/28/20 19:49 Lab Results 08/28/20 08/28/20 08/28/20 Range/Units 19:49 19:49 19:49 WBC 7.7 (3.8-10.6) k/uL RBC 4.78 (4.30-5.90) m/uL Hgb 14.9 (13.0-17.5) gm/dL Hct 42.1 (39.0-53.0) % MCV 88.0 D (80.0-100.0) fL MCH 31.1 (25.0-35.0) pg MCHC 35.4 (31.0-37.0) g/dL RDW 12.8 (11.5-15.5) % Plt Count 192 (150-450) k/uL MPV 7.8 Neutrophils % 68 % Lymphocytes % 20 % Monocytes % 6 % Eosinophils % 5 % Basophils % 1 % Neutrophils # 5.2 (1.3-7.7) k/uL Lymphocytes # 1.6 (1.0-4.8) k/uL Monocytes # 0.5 (0-1.0) k/uL Eosinophils # 0.4 (0-0.7) k/uL Basophils # 0.1 (0-0.2) k/uL PT 9.8 (9.0-12.0) sec INR 0.9 (<1.2) APTT 28.9 (22.0-30.0) sec Sodium 138 (137-145) mmol/L Potassium 4.2 (3.5-5.1) mmol/L Chloride 102 (98-107) mmol/L Carbon Dioxide 29 (22-30) mmol/L Anion Gap 7 mmol/L BUN 17 (9-20) mg/dL Creatinine 0.95 (0.66-1.25) mg/dL Est GFR (CKD-EPI)AfAm 84 (>60 ml/min/1.73 sqM) Est GFR (CKD-EPI)NonAf 73 (>60 ml/min/1.73 sqM) Glucose 136 H (74-99) mg/dL Calcium 9.3 (8.4-10.2) mg/dL Magnesium 2.1 (1.6-2.3) mg/dL Total Bilirubin 0.4 (0.2-1.3) mg/dL AST 23 (17-59) U/L ALT 13 (4-49) U/L Alkaline Phosphatase 71 (38-126) U/L Troponin I (0.000-0.034) ng/mL Total Protein 6.1 L (6.3-8.2) g/dL Albumin 3.8 (3.5-5.0) g/dL 08/28/20 Range/Units 19:49 WBC (3.8-10.6) k/uL RBC (4.30-5.90) m/uL Hgb (13.0-17.5) gm/dL Hct (39.0-53.0) % MCV (80.0-100.0) fL MCH (25.0-35.0) pg MCHC (31.0-37.0) g/dL RDW (11.5-15.5) % Plt Count (150-450) k/uL MPV Neutrophils % % Lymphocytes % % Monocytes % % Eosinophils % % Basophils % % Neutrophils # (1.3-7.7) k/uL Lymphocytes # (1.0-4.8) k/uL Monocytes # (0-1.0) k/uL Eosinophils # (0-0.7) k/uL Basophils # (0-0.2) k/uL PT (9.0-12.0) sec INR (<1.2) APTT (22.0-30.0) sec Sodium (137-145) mmol/L Potassium (3.5-5.1) mmol/L Chloride (98-107) mmol/L Carbon Dioxide (22-30) mmol/L Anion Gap mmol/L BUN (9-20) mg/dL Creatinine (0.66-1.25) mg/dL Est GFR (CKD-EPI)AfAm (>60 ml/min/1.73 sqM) Est GFR (CKD-EPI)NonAf (>60 ml/min/1.73 sqM) Glucose (74-99) mg/dL Calcium (8.4-10.2) mg/dL Magnesium (1.6-2.3) mg/dL Total Bilirubin (0.2-1.3) mg/dL AST (17-59) U/L ALT (4-49) U/L Alkaline Phosphatase (38-126) U/L Troponin I <0.012 (0.000-0.034) ng/mL Total Protein (6.3-8.2) g/dL Albumin (3.5-5.0) g/dL Disposition Clinical Impression: Unstable angina pectoris Disposition: ADMITTED IP TO THIS HOSP Referrals: Juan Cannon MD [Primary Care Provider] - 1-2 days Time of Disposition: 20:39
[2020-08-28 19:57] LABS: Basophils # (A) 0.1 k/uL (0-0.2); Basophils % (A) 1 %; Eosinophils # (A) 0.4 k/uL (0-0.7); Eosinophils % (A) 5 %; HCT 42.1 % (39.0-53.0); HGB 14.9 gm/dL (13.0-17.5); Lymphocytes # (A) 1.6 k/uL (1.0-4.8); Lymphocytes % (A) 20 %; MCH 31.1 pg (25.0-35.0); MCHC 35.4 g/dL (31.0-37.0); Mean Platelet Volume 7.8; Monocytes # (A) 0.5 k/uL (0-1.0); Monocytes % (A) 6 %; Neutrophils # (A) 5.2 k/uL (1.3-7.7); Neutrophils % (A) 68 %; Platelet Count 192 k/uL (150-450); RBC 4.78 m/uL (4.30-5.90); RDW 12.8 % (11.5-15.5); WBC 7.7 k/uL (3.8-10.6)
[2020-08-28 20:09] LABS: INR 0.9 (<1.2); Partial Thromboplastin Time 28.9 sec (22.0-30.0); Prothrombin Time 9.8 sec (9.0-12.0)
[2020-08-28 20:25] LABS: Albumin 3.8 g/dL (3.5-5.0); Calcium 9.3 mg/dL (8.4-10.2); Magnesium 2.1 mg/dL (1.6-2.3); Potassium 4.2 mmol/L (3.5-5.1); Total Bilirubin 0.4 mg/dL (0.2-1.3); Total Protein 6.1 g/dL (6.3-8.2)
[2020-08-28] MEDS ORDERED: HEPARIN SODIUM 1,000 UN/ML (10ML VL) IV ONE (20:37)
[2020-08-28] MEDS ORDERED: NITROGLYCERIN SL TABS 0.4 MG TAB SUBLINGUAL PRN (20:39)
[2020-08-28] MEDS ORDERED: MORPHINE SULFATE 2 MG/ML SYRINGE IVP STA (20:43)
[2020-08-28] MEDS ORDERED: HEPARIN SOD,PORK IN 0.45% NACL 25,000 UNIT in 0.45% NACL 1 250ML.BAG IV SCH (20:45)
--- NOTE | 2020-08-28 20:53 | XR ---
EXAMINATION TYPE: XR chest 2V DATE OF EXAM: 08/28/2020 COMPARISON: NONE HISTORY: Chest pain TECHNIQUE: 2 views FINDINGS: There is no heart failure nor confluent pneumonic infiltrate. Thoracic aorta is atheromatou s. There are chest leads. IMPRESSION: No active cardiopulmonary disease. Normal heart. No change.
[2020-08-29] MEDS: NITROGLYCERIN OINT 1 INCH/GM PACKET TOPICAL SCH ×2 (00:47→06:37)
--- NOTE | 2020-08-29 03:40 | P.HPIM ---
History of Present Illness H&P Date: 08/28/20 Chief Complaint: Chest pain 85-year-old male with coronary artery disease status post stents, hypertension, diabetes mellitus Patient comes in due to sudden onset right-sided chest pain radiating throughout the chest rated 8 out of 10 in severity lasted 30 minutes prior to arrival. 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 So today after a 10 hour shifts he suddenly started experiencing this chest pain he denies any social or emotional stressors and he denied any unusual physical activities. He took a couple aspirins at home and rushed to the ER he reports that pain has eased downloaded bed but still persisting he's concerned regarding his heart situation. He denies any associated nausea or vomiting palpitations or profuse sweating but he did have some labored breathing with this episode of pain Initial workup in the ED was unremarkable patient admitted for further evaluation by cardiology Patient otherwise denies any leg swelling denies any recent traveling or hospitalization than the heart attack about 3-4 months ago. Review of Systems Pertinent positives as noted in HPI. All other systems were reviewed and are negative Past Medical History Past Medical History: Diabetes Mellitus, Myocardial Infarction (MA), Osteoarthritis (OA), Prostate Disorder, Skin Disorder Additional Past Medical History / Comment(s): Neuropathy. Psoriasis., History of Any Multi-Drug Resistant Organisms: None Reported Past Surgical History: Back Surgery, Bowel Resection, Heart Catheterization With Stent Additional Past Surgical History / Comment(s): Back surgery X3. Past Anesthesia/Blood Transfusion Reactions: No Reported Reaction Past Psychological History: No Psychological Hx Reported Smoking Status: Never smoker Past Alcohol Use History: None Reported Past Drug Use History: None Reported - Past Family History Father Family Medical History: Cancer Additional Family Medical History / Comment(s): Colon Cancer. Brother(s) Family Medical History: Cancer Additional Family Medical History / Comment(s): Colon Cancer. Medications and Allergies Home Medications Medication Instructions Recorded Confirmed Type Tamsulosin HCl [Flomax] 0.4 mg PO HS 10/06/13 08/28/20 History metFORMIN HCL [Glucophage] 500 mg PO DAILY 10/06/13 08/28/20 History Dutasteride [Avodart] 0.5 mg PO HS 07/15/16 08/28/20 History DULoxetine HCL [Cymbalta] 30 mg PO HS 12/24/19 08/28/20 History Gabapentin 300 mg PO HS 12/24/19 08/28/20 History Aspirin EC [Ecotrin Low Dose] 81 mg PO DAILY 08/28/20 08/28/20 History Cholecalciferol [Vitamin D3 (25 25 mcg PO DAILY 08/28/20 08/28/20 History Mcg = 1000 Iu)] Clopidogrel Bisulfate [Plavix] 75 mg PO DAILY 08/28/20 08/28/20 History Docusate [Colace] 300 mg PO HS 08/28/20 08/28/20 History Magnesium Oxide [[place]] 500 mg PO DAILY 08/28/20 08/28/20 History Metoprolol Tartrate [Lopressor] 25 mg PO DAILY 08/28/20 08/28/20 History Nitroglycerin Sl Tabs [Nitrostat] 0.4 mg SUBLINGUAL Q5M PRN 08/28/20 08/28/20 History Rosuvastatin [Crestor] 10 mg PO HS 08/28/20 08/28/20 History [place] 450 Mg 450 mg PO DAILY 08/28/20 08/28/20 History Vitamin K2 100 mcg PO DAILY 08/28/20 08/28/20 History Zinc 50 mg PO DAILY 08/28/20 08/28/20 History Allergies Allergy/AdvReac Type Severity Reaction Status Date / Time No Known Allergies Allergy Verified 08/28/20 19:24 Physical Exam Vitals: Vital Signs Temp Pulse Resp BP Pulse Ox 08/28/20 23:00 97.7 F 73 18 111/64 95 08/28/20 21:34 75 18 111/56 93 L 08/28/20 20:34 98.1 F 73 18 122/64 93 L 08/28/20 19:20 98.1 F 69 18 129/72 96 Intake and Output 08/28/20 08/28/20 08/29/20 14:59 22:59 06:59 Other: Weight 86.183 kg Constitutional: No acute distress, conversant, pleasant Eyes: Anicteric sclerae, moist conjunctiva, Pupils equal round reactive to light ENMT: NC/AT Oropharynx clear, no erythema, or exudates Neck: Supple, FROM, no masses, or JVD No carotid bruits No thyromegaly Lungs: Clear to auscultation Clear to percussion Normal respiratory effort, no accessory muscle use Cardiovascular: Heart regular in rate and rhythm, No murmurs, gallops, or rubs No peripheral edema Abdominal: Soft Nontender, no guarding, rebound or rigidity Abdomen moving with respiration Normoactive bowel sounds No hepatomegaly, No splenomegaly No palpable mass No abdominal wall hernia noted Skin: Normal temperature, tone, texture, turgor No induration No subcutaneous nodules No rash, lesions No ulcers Extremities: No digital cyanosis No clubbing Pedal pulses intact and symmetrical Radial pulses intact and symmetrical No calf tenderness Psychiatric: Alert and oriented to person, place and time Appropriate affect fair judgement Neuro Muscles Strength 5/5 in all 4 extremities Sensation to light touch grossly present throughout Cranial nerves II-XII grossly intact No focal sensory deficits Lymphatics: no palpable cervical or supraclavicular , or inguinal lymph no katie Results CBC & Chem 7: 08/28/20 19:49 08/28/20 19:49 Labs: Abnormal Lab Results - Last 24 Hours (Table) 08/28/20 Range/Units 19:49 Glucose 136 H (74-99) mg/dL Total Protein 6.1 L (6.3-8.2) g/dL Assessment and Plan Assessment: Unstable angina Aspirin and statin and nitro Heparin drip Cardiology eval case monitor Monitor vital signs Resume cardiac meds Plavix Chronic conditions Hypertension, resume home medications Diabetes mellitus, insulin sliding scale BPH, resume home medications Flomax CODE STATUS:Full code DVT prophylaxis: On heparin drip for unstable angina Discussed with: Patient, ER Anticipated length of stay less than [address]: Home A total of 65 minutes was spent on the care of this complex patient more than 50% of the time was spent in counseling and care coordination.
[2020-08-29 06:28] LABS: Glucose,Whole Blood 128 mg/dL (75-99)
[2020-08-29] MEDS ORDERED: INSULIN ASPART (NovoLOG) 100 UNIT/ML VIAL SQ SCH (07:30)
[2020-08-29] MEDS ORDERED: CHOLECALCIFEROL 25 MCG (1000 IU) TABLET PO SCH (09:00)
[2020-08-29] MEDS ORDERED: METOPROLOL TARTRATE 25 MG TAB PO SCH (09:00)
[2020-08-29] MEDS ORDERED: ASPIRIN 325 MG TAB PO SCH (09:00)
[2020-08-29] MEDS ORDERED: CLOPIDOGREL 75 MG TAB PO SCH (09:00)
[2020-08-29] MEDS ORDERED: ASPIRIN 81 MG PO SCH (09:00)
[2020-08-29 10:27] LABS: Chol/HDL Ratio 2.84; LDL Cholesterol,Calculated 62.8 mg/dL (0.0-131.0); VLDL Calculation 16.2 mg/dL (5.00-40.00)
--- NOTE | 2020-08-29 10:29 | P.CRDCN ---
History of Present Illness History of present illness: HISTORY OF PRESENTING ILLNESS This is a pleasant 85-year-old male past medical history significant for coronary artery disease status post PCI of the circumflex, diabetes mellitus, dyslipidemia and hypertension. He follows in the office with Dr. Red. We have been asked to see in consultation for chest pain. Yesterday evening after returning from work he was sitting down and he experienced pain on the right anterior chest wall. The pain did not radiate to his arm, back, neck or jaw. He had no associated shortness of breath, dizziness or palpitations. He described it as a hard beating of his heart that he felt on the right side and was sharp. His gave him nitroglycerin waited 15 minutes and his pain was still persistent so he was given full dose aspirin and brought to the emergency room. His also checked his blood pressure at that time which she stated was in the 140s range. The time he arrived in the emergency department his pain has resolved. He is seen and examined resting comfortably in no acute distress and is currently chest pain-free. DIAGNOSTICS EKG reveals sinus mechanism, right bundle branch block, left anterior fascicular block and nonspecific ST abnormalities with a heart rate of 76. Telemetry tracings indicate sinus mechanism. Chest xray negative for an acute cardiopulmonary process. Laboratory reviewed, CBC unremarkable, sodium 138, potassium 4.2, creatinine 0.95, magnesium 2.1, cardiac enzymes negative 3.. Current cardiac medications include aspirin 81 mg daily, Lopressor 25 mg daily, Plavix 75 mg daily and rosuvastatin 20 mg daily. REVIEW OF SYSTEMS At the time of my exam: CONSTITUTIONAL: Denies fever or chills. CARDIOVASCULAR: Denies chest pain, shortness of breath, orthopnea, PND or palpitations. RESPIRATORY: Denies cough. GASTROINTESTINAL: Denies abdominal pain, diarrhea, constipation, nausea or vomiting. MUSCULOSKELETAL: Denies myalgias. NEUROLOGIC: Denies numbness, tingling, headacbe or weakness. ENDOCRINE: Denies fatigue, weight change, polydipsia or polyurina. GENITOURINARY: Denies burning, hematuria or urgency with micturation. HEMATOLOGIC: Denies history of anemia or bleeding. PHYSICAL EXAMINATION Blood pressure 120/78 heart rate 67 afebrile and maintaining oxygen saturation on room air. CONSTITUTIONAL: No apparent distress. HEENT: Head is normocephalic. Pupils are equal, round. Sclerae anicteric. Mucous membranes of the mouth are moist. No JVD. No carotid bruit. CHEST EXAMINATION: Lungs are clear to auscultation. No chest wall tenderness is noted on palpation or with deep breathing. HEART EXAMINATION: Regular rate and rhythm. S1, S2 heard. No murmurs, gallops or rub. ABDOMEN: Soft, nontender. Positive bowel sounds. EXTREMITIES: 2+ peripheral pulses, no lower extremity edema and no calf tenderness. NEUROLOGIC EXAMINATION: Patient is awake, alert and oriented x3. ASSESSMENT Chest pain, atypical Coronary artery disease status post PCI of the circumflex in [place] Dyslipidemia Diabetes mellitus Hypertension PLAN An acute coronary event has been ruled out. Pain is atypical for angina. The patient recently saw Dr. Red in the office for similar type symptoms and is scheduled next week for a Lexiscan stress test. He can be discharged home and follow up next week with his stress test as previously ordered. We have recommended increasing his rosuvastatin to 20 mg d aily. Only for this consultation. Nurse Practitioner note has been reviewed, I agree with a documented findings and plan of care. Patient was seen and examined. Past Medical History Past Medical History: Diabetes Mellitus, Myocardial Infarction (DE), Osteo arthritis (OA), Prostate Disorder, Skin Disorder Additional Past Medical History / Comment(s): Neuropathy. Psoriasis., Last Myocardial Infarction Date:: 2020 History of Any Multi-Drug Resistant Organisms: None Reported Past Surgical History: Back Surgery, Bowel Resection, Heart Catheterization With Stent Additional Past Surgical History / Comment(s): Back surgery X3. Past Anesthesia/Blood Transfusion Reactions: No Reported Reaction Date of Last Stent Placement:: 2020 Past Psychological History: No Psychological Hx Reported Smoking Status: Never smoker Past Alcohol Use History: None Reported Past Drug Use History: None Reported - Past Family History Father Family Medical History: Cancer Additional Family Medical History / Comment(s): Colon Cancer. Brother(s) Family Medical History: Cancer Additional Family Medical History / Comment(s): Colon Cancer. Medications and Allergies Home Medications Medication Instructions Recorded Confirmed Type Tamsulosin HCl [Flomax] 0.4 mg PO HS 10/06/13 08/28/20 History metFORMIN HCL [Glucophage] 500 mg PO DAILY 10/06/13 08/28/20 History Dutasteride [Avodart] 0.5 mg PO HS 07/15/16 08/28/20 History DULoxetine HCL [Cymbalta] 30 mg PO HS 12/24/19 08/28/20 History Gabapentin 300 mg PO HS 12/24/19 08/28/20 History Aspirin EC [Ecotrin Low Dose] 81 mg PO DAILY 08/28/20 08/28/20 History Cholecalciferol [Vitamin D3 (25 25 mcg PO DAILY 08/28/20 08/28/20 History Mcg = 1000 Iu)] Clopidogrel Bisulfate [Plavix] 75 mg PO DAILY 08/28/20 08/28/20 History Docusate [Colace] 300 mg PO HS 08/28/20 08/28/20 History Magnesium Oxide [Escalona] 500 mg PO DAILY 08/28/20 08/28/20 History Metoprolol Tartrate [Lopressor] 25 mg PO DAILY 08/28/20 08/28/20 History Nitroglycerin Sl Tabs [Nitrostat] 0.4 mg SUBLINGUAL Q5M PRN 08/28/20 08/28/20 History Saw [place] 450 Mg 450 mg PO DAILY 08/28/20 08/28/20 History Vitamin K2 100 mcg PO DAILY 08/28/20 08/28/20 History Zinc 50 mg PO DAILY 08/28/20 08/28/20 History Rosuvastatin [Crestor] 20 mg PO HS #0 08/29/20 08/28/20 Rx Allergies Allergy/AdvReac Type Severity Reaction Status Date / Time No Known Allergies Allergy Verified 08/28/20 19:24 Physical Exam Vitals: Vital Signs Temp Pulse Pulse Resp BP BP Pulse Ox 08/29/20 07:42 66 16 128/60 93 L 08/29/20 02:00 97.0 F L 68 16 106/52 95 08/29/20 00:52 97.7 F 69 18 116/75 94 L 08/29/20 00:44 97.6 F 68 16 116/75 93 L 08/28/20 23:00 97.7 F 73 18 111/64 95 08/28/20 21:34 75 18 111/56 93 L 08/28/20 20:34 98.1 F 73 18 122/64 93 L 08/28/20 19:20 98.1 F 69 18 129/72 96 Intake and Output 08/28/20 08/29/2021 22:59 06:59 14:59 Intake Total 79 0 Output Total 500 Balance -421 0 Intake: Intake, IV Titration 79 0 Amount Heparin Sod,Pork in 0.45% 79 0 NaCl 25,000 unit In 0.45 % NaCl 1 250ml.bag @ 11. 603 UNITS/KG/HR 10 mls/hr IV .Q24H [facility] Rx#: [id number] Output: Urine 500 Other: Voiding Method Toilet Urinal # Voids 2 Weight 86.183 kg 86.183 kg Results 08/28/20 19:49 08/28/20 19:49 Cardiac Enzymes 08/28/20 08/28/20 08/28/20 Range/Units 19:49 19:49 22:27 AST 23 (17-59) U/L Troponin I <0.012 <0.012 (0.000-0.034) ng/mL 08/29/20 Range/Units 01:03 AST (17-59) U/L Troponin I <0.012 (0.000-0.034) ng/mL Coagulation 08/28/20 08/29/20 Range/Units 19:49 04:16 PT 9.8 (9.0-12.0) sec APTT 28.9 171.2 H* (22.0-30.0) sec CBC 08/28/20 Range/Units 19:49 WBC 7.7 (3.8-10.6) k/uL RBC 4.78 (4.30-5.90) m/uL Hgb 14.9 (13.0-17.5) gm/dL Hct 42.1 (39.0-53.0) % Plt Count 192 (150-450) k/uL Comprehensive Metabolic Panel 08/28/20 Range/Units 19:49 Sodium 138 (137-145) mmol/L Potassium 4.2 (3.5-5.1) mmol/L Chloride 102 (98-107) mmol/L Carbon Dioxide 29 (22-30) mmol/L BUN 17 (9-20) mg/dL Creatinine 0.95 (0.66-1.25) mg/dL Glucose 136 H (74-99) mg/dL Calcium 9.3 (8.4-10.2) mg/dL AST 23 (17-59) U/L ALT 13 (4-49) U/L Alkaline Phosphatase 71 (38-126) U/L Total Protein 6.1 L (6.3-8.2) g/dL Albumin 3.8 (3.5-5.0) g/dL Current Medications Generic Name Dose Route Start Last Admin Trade Name Freq PRN Reason Stop Dose Admin Aspirin 325 mg 08/29/20 09:00 Aspirin 325 Mg Tab PO DAILY [facility] Atorvastatin Calcium 20 mg 08/29/20 21:00 Atorvastatin 20 Mg Tab PO HS DUSTY Cholecalciferol 25 mcg 08/29/20 09:00 Cholecalciferol 25 Mcg (1000 Iu) Tablet PO DAILY [facility] Clopidogrel Bisulfate 75 mg 08/29/20 09:00 Clopidogrel 75 Mg Tab PO DAILY [facility] Docusate Sodium 300 mg 08/29/20 21:00 Docusate 100 Mg Cap PO HS DUSTY Duloxetine HCl 30 mg 08/29/20 21:00 Duloxetine Hcl 30 Mg Capsule.Dr PO HS DUSTY Finasteride 5 mg 08/29/20 21:00 Finasteride 5 Mg Tab PO HS DUSTY Gabapentin 300 mg 08/29/20 21:00 Gabapentin 300 Mg Cap PO HS DUSTY Heparin Sodium/Sodium Chloride 250 mls @ 10 mls/hr 08/28/20 20:45 08/29/20 07:16 25,000 unit/ Sodium Chloride IV 8.603 units/kg/hr .Q24H DUSTY 7.414 mls/hr Titration Protocol 11.603 UNITS/KG/HR Insulin Aspart 0 unit 08/29/20 07:30 08/29/20 06:28 Insulin Aspart (Novolog) 100 Unit/Ml Vial SQ Not Given ACHS [facility] Protocol Metoprolol Tartrate 25 mg 08/29/20 09:00 Metoprolol Tartrate 25 Mg Tab PO DAILY DUSTY Nitroglycerin 0.4 mg 08/28/20 20:39 Nitroglycerin Sl Tabs 0.4 Mg Tab SUBLINGUAL Q5M PRN Chest Pain Nitroglycerin 1 inch 08/29/20 00:00 08/29/20 06:37 Nitroglycerin Oint 1 Inch/Gm Packet TOPICAL 1 inch Q6HR DUSTY Administration Tamsulosin HCl 0.4 mg 08/29/20 21:00 Tamsulosin 0.4 Mg Cap.Er.24h PO HS DUSTY Intake and Output 08/28/20 08/29/20 08/29/20 22:59 06:59 14:59 Intake Total 79 0 Output Total 500 Balance -421 0 Intake: Intake, IV Titration 79 0 Amount Heparin Sod,Pork in 0.45% 79 0 NaCl 25,000 unit In 0.45 % NaCl 1 250ml.bag @ 11. 603 UNITS/KG/HR 10 mls/hr IV .Q24H [facility] Rx#: [id number] Output: Urine 500 Other: Voiding Method Toilet Urinal # Voids 2 Weight 86.183 kg 86.183 kg 08/28/20 19:49 08/28/20 19:49
--- NOTE | 2020-08-29 12:41 | P.DS ---
<Kurtis Verma - Last Filed: 08/29/20 12:11> Providers Expected date of discharge: 08/29/20 Hospital Course: Discharge Diagnosis: Atypical chest pain, acute coronary event ruled out History of CAD with stents Hypertension Hyperlipidemia Oox-[id number] diabetes mellitus type 2 BPH Hospital Course: Patient is an 85-year-old male with a past medical history of CAD with recent stent to circumflex completed by vascular manager in [place] back in May and currently following in office outpatient with Dr. Red, hypertension, hyperlipidemia, BPH, and [id number] diabetes mellitus type 2. Patient presented to the emergency department yesterday evening with a chief complaint of chest pain. Patient reports working a 12 hour shift yesterday and coming home to relax. Patient reports while sitting in his recliner prior to eating dinner he experienced a painful/sharp sensation in the right side of his chest. Patient states this pain was accompanied by diaphoresis and that his gave him a nitroglycerin but he had no improvement after 15 minutes so she gave him an aspirin and brought him to the emergency department. In the emergency department, an EKG was completed showing normal sinus rhythm with a right bundle branch block at 76 bpm with no noted ST abnormality showing no sign of acute ischemia. A chest x-ray was completed which was also negative for acute cardiopulmonary process. Patient was started on heparin infusion and admitted under our services with consultation to cardiology to rule out acute coronary event. Patient reports his chest pain initially began around 5 PM and subsided sometime after midnight. Currently patient is pain free and denies having any other complaints. Troponins were completed and trended 3 all negative at < 0.012. Patient was seen and fully evaluated by cardiology and an acute coronary event was ruled out. Patient is previously scheduled to have Lexiscan stress test completed outpatient next week. Patient has been medically cleared and cleared by cardiology for discharge home. Patient instructed to continue daily medication regimen including Plavix, aspirin, metoprolol, and rosuvastatin. He is to follow-up with his PCP in 2-3 days and with cardiology next week in office and for Lexiscan stress test. Physical exam: Patient seen and examined at bedside. Patient currently reports all chest pain subsided shortly after midnight. Patient denies having any headache, lightheadedness, dizziness, changes in his vision or hearing, palpitations, shortness of breath, dyspnea with exertion, abdominal pain, nausea, vomiting, or experiencing any numbness/tingling/weakness/swelling in his extremities. Vital signs reviewed and stable. General: Nontoxic, no distress and appears stated age. Derm: Skin warm and dry, normal coloration for ethnicity. Head: Atraumatic, normocephalic and symmetric. Eyes: EOMs intact, no lid lag, and anicteric sclera Mouth: no lip lesions, mucus membranes moist Cardiovascular: regular rate and rhythm with normal S1S2, no murmur, positive posterior tibial pulses bilaterally, and cap refill < 2 seconds. Lungs: Respirations even, regular, and unlabored on room air. Lungs CTA bilaterally, no rhonchi, no rales, no wheezing, and no accessory muscle usage. Abdominal: soft, nontender to palpation, no guarding, no appreciable organomegaly Ext: ROM intact. No gross muscle atrophy, no edema, no contractures Neuro: Speech clear, face symmetrical and CN II-XII grossly intact with no noted focal neuro deficits Psych: Alert and oriented to person, place, time, and situation. Appropriate and pleasant affect. A total of 45 minutes of time was spent preparing this complex discharge summary. Patient Condition at Discharge: Stable Plan - Discharge Summary Discharge Rx Participant: No New Discharge Prescriptions: Continue metFORMIN HCL [Glucophage] 500 mg PO DAILY Tamsulosin HCl [Flomax] 0.4 mg PO HS Dutasteride [Avodart] 0.5 mg PO HS DULoxetine HCL [Cymbalta] 30 mg PO HS Gabapentin 300 mg PO HS Nitroglycerin Sl Tabs [Nitrostat] 0.4 mg SUBLINGUAL Q5M PRN PRN Reason: Chest Pain Zinc 50 mg PO DAILY Docusate [Colace] 300 mg PO HS Clopidogrel Bisulfate [Plavix] 75 mg PO DAILY Metoprolol Tartrate [Lopressor] 25 mg PO DAILY Saw [place] 450 Mg 450 mg PO DAILY Magnesium Oxide [Escalona] 500 mg PO DAILY Cholecalciferol [Vitamin D3 (25 Mcg = 1000 Iu)] 25 mcg PO DAILY Aspirin EC [Ecotrin Low Dose] 81 mg PO DAILY Vitamin K2 100 mcg PO DAILY Changed Rosuvastatin [Crestor] 20 mg PO HS #0 Discharge Medication List Tamsulosin HCl [Flomax] 0.4 mg PO HS 10/06/13 [History] metFORMIN HCL [Glucophage] 500 mg PO DAILY 10/06/13 [History] Dutasteride [Avodart] 0.5 mg PO HS 07/15/16 [History] DULoxetine HCL [Cymbalta] 30 mg PO HS 12/24/19 [History] Gabapentin 300 mg PO HS 12/24/19 [History] Aspirin EC [Ecotrin Low Dose] 81 mg PO DAILY 08/28/20 [History] Cholecalciferol [Vitamin D3 (25 Mcg = 1000 Iu)] 25 mcg PO DAILY 08/28/20 [History] Clopidogrel Bisulfate [Plavix] 75 mg PO DAILY 08/28/20 [History] Docusate [Colace] 300 mg PO HS 08/28/20 [History] Magnesium Oxide [Escalona] 500 mg PO DAILY 08/28/20 [History] Metoprolol Tartrate [Lopressor] 25 mg PO DAILY 08/28/20 [History] Nitroglycerin Sl Tabs [Nitrostat] 0.4 mg SUBLINGUAL Q5M PRN 08/28/20 [History] Saw [place] 450 Mg 450 mg PO DAILY 08/28/20 [History] Vitamin K2 100 mcg PO DAILY 08/28/20 [History] Zinc 50 mg PO DAILY 08/28/20 [History] Rosuvastatin [Crestor] 20 mg PO HS #0 08/29/20 [Rx] Follow up Appointment(s)/Referral(s): Juan Cannon MD [Primary Care Provider] - 1-2 days Jim Red MD [STAFF PHYSICIAN] - 1 Week Patient Instructions/Handouts: Angina (DC) Activity/Diet/Wound Care/Special Instructions: Activity: As tolerated Diet: Heart healthy diet Special Instructions: Is very important for you to continue taking your medications as prescribed without missing any doses. Please keep all follow-up appointments with cardiology and for Lexiscan stress test next week. Discharge Disposition: HOME SELF-CARE <Allison Vick - Last Filed: 08/29/20 22:20> Providers Date of admission: 08/28/20 20:39 Attending physician: Antonio Mcdonough MD Consults: 08/28/20 20:39 Consult Physician Urgent Consulting Provider: [facility] Consult Reason/Comments: Unstable angina Do you want consulting provider notified?: Yes Primary care physician: Juan Cannon MD Hospital Course: Kurtis Verma NP rendered care for this patient independently, reviewed the findings and plan as documented in the note above. I did not physically speak with or examine the patient on this date.
[2020-08-29 13:14] VITALS: BP 134/83; PULSE 91; RESP 20; TEMP 97.8
[2020-08-29] MEDS ORDERED: DULoxetine HCL 30 MG CAPSULE.DR PO SCH (21:00)
[2020-08-29] MEDS ORDERED: ATORVASTATIN 20 MG TAB PO SCH (21:00)
[2020-08-29] MEDS ORDERED: TAMSULOSIN 0.4 MG CAP.ER.24H PO SCH (21:00)
[2020-08-29] MEDS ORDERED: DOCUSATE 100 MG CAP PO SCH (21:00)
[2020-08-29] MEDS ORDERED: GABAPENTIN 300 MG CAP PO SCH (21:00)
[2020-08-29] MEDS ORDERED: FINASTERIDE 5 MG TAB PO SCH (21:00)
== END 2020-08-29 13:20 | disposition home or self-care (01) ==
LOC: EC 19:15 → 6NMEDSUR 20:39
PROVIDERS: ADMIT Internal Medicine; ATTEND Internal Medicine
DX: R07.89 Other chest pain (principal); I25.10 Atherosclerotic heart disease of native coronary artery without angina pectoris; E11.42 Type 2 diabetes mellitus with diabetic polyneuropathy; I45.2 Bifascicular block; I10 Essential (primary) hypertension; E78.5 Hyperlipidemia, unspecified; I70.0 Atherosclerosis of aorta; N40.0 Benign prostatic hyperplasia without lower urinary tract symptoms; I25.2 Old myocardial infarction; L40.9 Psoriasis, unspecified; M19.90 Unspecified osteoarthritis, unspecified site; R61 Generalized hyperhidrosis; Z79.82 Long term (current) use of aspirin; Z79.84 Long term (current) use of oral hypoglycemic drugs; Z79.02 Long term (current) use of antithrombotics/antiplatelets; Z79.899 Other long term (current) drug therapy; Z95.5 Presence of coronary angioplasty implant and graft; Z90.49 Acquired absence of other specified parts of digestive tract; Z98.890 Other specified postprocedural states; Z80.0 Family history of malignant neoplasm of digestive organs
CPT/HCPCS: 93005 ×2; 96376; 96365; 96366 ×2; 96375; 99285; 36415; 80061; 80053; 83735; 84484 ×2; 85025; 85610; 85730 ×2; 71046; G0378 ×2; J2270; J1644 ×2

== ENCOUNTER → 2021-07-01 | Outpatient (CLI) | payer MEDICARE ==
--- NOTE | 2021-07-01 17:59 | CT ---
EXAMINATION TYPE: CT abdomen pelvis wo con DATE OF EXAM: 07/01/2021 COMPARISON: 01/02/2020 HISTORY: rt sided abd pain CT DLP: 804.8 mGycm Automated exposure control for dose reduction was used. TECHNIQUE: Helical acquisition of images was performed from the lung bases through the pelvis. FINDINGS: LUNG BASES: No significant abnormality is appreciated. LIVER/GB: No significant abnormality is appreciated. PANCREAS: No significant abnormality is seen. SPLEEN: No significant abnormality is seen. ADRENALS: No significant abnormality is seen. KIDNEYS: No significant abnormality is seen. FREE AIR: No free air is visualized RETROPERITONEAL ADENOPATHY: None visualized REPRODUCTIVE ORGANS: Prostatomegaly is seen URINARY BLADDER: No significant abnormality is seen. PELVIC ADENOPATHY: None visualized. OSSEOUS STRUCTURES: No acute abnormality is seen. Mild lumbar spondylosis. BOWEL: No acute abnormality is seen. Small fat-containing bilateral inguinal hernias. No acute appen dicitis. OTHER: Moderate to advanced atherosclerotic disease. IMPRESSION: NO ACUTE ABNORMALITY.
== END | disposition home or self-care (01) ==
LOC: RADCTMAIN 17:11
PROVIDERS: ATTEND Internal Medicine
DX: R10.9 Unspecified abdominal pain (principal)
CPT/HCPCS: 74176

== ENCOUNTER 2022-11-15 11:41 | Emergency (ER) | payer MEDICARE ==
[2022-11-15 12:05] VITALS: RESP 18; TEMP 98
[2022-11-15 12:29] LABS: Basophils % (A) 0 %; Eosinophils # (A) 0.2 k/uL (0-0.7); Eosinophils % (A) 2 %; HCT 42.9 % (39.0-53.0); HGB 14.5 gm/dL (13.0-17.5); Lymphocytes # (A) 1.2 k/uL (1.0-4.8); Lymphocytes % (A) 13 %; MCH 31.5 pg (25.0-35.0); MCHC 33.9 g/dL (31.0-37.0); MCV 92.9 fL (80.0-100.0); Mean Platelet Volume 8.3; Monocytes # (A) 0.8 k/uL (0-1.0); Monocytes % (A) 8 %; Neutrophils # (A) 7.1 k/uL (1.3-7.7); Neutrophils % (A) 76 %; Platelet Count 185 k/uL (150-450); RBC 4.61 m/uL (4.30-5.90); RDW 13.1 % (11.5-15.5); WBC 9.4 k/uL (3.8-10.6)
[2022-11-15 12:38] LABS: INR 0.9 (<1.2); Partial Thromboplastin Time 33.1 sec (22.0-30.0); Prothrombin Time 10.1 sec (9.0-12.0)
--- NOTE | 2022-11-15 12:38 | XR ---
EXAMINATION TYPE: XR chest 2V DATE OF EXAM: 11/15/2022 COMPARISON: 08/28/2020 TECHNIQUE: PA and lateral views submitted. HISTORY: Chest FINDINGS: The lungs are clear and there is no pneumothorax, pleural effusion, or focal pneumonia. Heart size normal and no overt failure. Osseous structures demonstrate hypertrophic and degenerative changes of the spine. Atherosclerotic change aorta with ectasia. Faint density in the right midlung. Limited ins piration. Diffuse osteopenia with arthropathy of the shoulders. IMPRESSION: 1. Faint patchy density right midlung likely related to atelectasis from reduced inspiration correlat e clinically to exclude early infiltrate.
[2022-11-15 12:41] LABS: Albumin 3.8 g/dL (3.5-5.0); Anion Gap 9 mmol/L; Carbon Dioxide 29 mmol/L (22-30); Chloride 101 mmol/L (98-107); Glucose 124 mg/dL (74-99); Potassium 4.3 mmol/L (3.5-5.1); Sodium 139 mmol/L (137-145); Total Protein 6.4 g/dL (6.3-8.2)
[2022-11-15 12:42] LABS: ALT 12 U/L (4-49); AST 18 U/L (17-59); African American GFR (CKD) 77 (>60 ml/min/1.73 sqM); Alkaline Phosphatase 57 U/L (38-126); Blood Urea Nitrogen 13 mg/dL (9-20); Calcium 9.2 mg/dL (8.4-10.2); Magnesium 1.9 mg/dL (1.6-2.3); Non-African American GFR(CKD) 67 (>60 ml/min/1.73 sqM); Total Bilirubin 1.3 mg/dL (0.2-1.3)
--- NOTE | 2022-11-15 13:22 | ED ---
Chest Pain HPI - General Source: patient, family, RN notes reviewed Mode of arrival: wheelchair Limitations: no limitations <Noah Camara - Last Filed: 11/15/22 13:21> <Khanh Santiago - Last Filed: 11/15/22 14:24> - General Chief Complaint: Chest Pain Stated Complaint: Chest Pain Time Seen by Provider: 11/15/22 13:21 - History of Present Illness Initial Comments: 87-year-old male presents emergency Department from PCPs office for evaluation of chest pain. Patient states the pain has been going on but had worsening. PCP felt this related to chest wall is at her some move, worsening pain. (Noah Camara) - Related Data Home Medications Medication Instructions Recorded Confirmed Tamsulosin HCl [Flomax] 0.4 mg PO HS 10/06/13 08/28/20 metFORMIN HCL [Glucophage] 500 mg PO DAILY 10/06/13 08/28/20 Dutasteride [Avodart] 0.5 mg PO HS 07/15/16 08/28/20 DULoxetine HCL [Cymbalta] 30 mg PO HS 12/24/19 08/28/20 Gabapentin 300 mg PO HS 12/24/19 08/28/20 Aspirin EC [Ecotrin Low Dose] 81 mg PO DAILY 08/28/20 08/28/20 Cholecalciferol [Vitamin D3 (25 25 mcg PO DAILY 08/28/20 08/28/20 Mcg = 1000 Iu)] Clopidogrel Bisulfate [Plavix] 75 mg PO DAILY 08/28/20 08/28/20 Docusate [Colace] 300 mg PO HS 08/28/20 08/28/20 Magnesium Oxide [Escalona] 500 mg PO DAILY 08/28/20 08/28/20 Metoprolol Tartrate [Lopressor] 25 mg PO DAILY 08/28/20 08/28/20 Nitroglycerin Sl Tabs [Nitrostat] 0.4 mg SUBLINGUAL Q5M PRN 08/28/20 08/28/20 Saw [place] 450 Mg 450 mg PO DAILY 08/28/20 08/28/20 Vitamin K2 100 mcg PO DAILY 08/28/20 08/28/20 Zinc 50 mg PO DAILY 08/28/20 08/28/20 Previous Rx's Medication Instructions Recorded Rosuvastatin [Crestor] 20 mg PO HS #0 08/29/20 Allergies Allergy/AdvReac Type Severity Reaction Status Date / Time No Known Allergies Allergy Verified 11/15/22 12:01 Review of Systems ROS Other: All systems not noted in ROS Statement are negative. <Noah Camara - Last Filed: 11/15/22 13:21> ROS Other: All systems not noted in ROS Statement are negative. <JackKhanh - Last Filed: 11/15/22 14:24> ROS Statement: Those systems with pertinent positive or pertinent negative responses have been documented in the HPI. Past Medical History Past Medical History: Diabetes Mellitus, Myocardial Infarction ([place]), Osteoarthritis (OA), Prostate Disorder, Skin Disorder Additional Past Medical History / Comment(s): Neuropathy. Psoriasis., Last Myocardial Infarction Date:: 2020 History of Any Multi-Drug Resistant Organisms: None Reported Past Surgical History: Back Surgery, Bowel Resection, Heart Catheterization With Stent Additional Past Surgical History / Comment(s): Back surgery X3. Past Anesthesia/Blood Transfusion Reactions: No Reported Reaction Date of Last Stent Placement:: 2020 Past Psychological History: No Psychological Hx Reported Smoking Status: Never smoker Past Alcohol Use History: None Reported Past Drug Use History: None Reported - Past Family History Father Family Medical History: Cancer Additional Family Medical History / Comment(s): Colon Cancer. Brother(s) Family Medical History: Cancer Additional Family Medical History / Comment(s): Colon Cancer. <Noah Camara - Last Filed: 11/15/22 13:21> General Exam <Noah Camara - Last Filed: 11/15/22 13:21> General appearance: alert, in no apparent distress Head exam: Present: atraumatic, normocephalic Eye exam: Present: normal appearance, PERRL ENT exam: Present: normal exam Neck exam: Present: normal inspection. Absent: tenderness, meningismus Respiratory exam: Present: normal lung sounds bilaterally. Absent: respiratory distress, wheezes, chest wall tenderness Cardiovascular Exam: Present: regular rate, normal rhythm GI/Abdominal exam: Present: soft. Absent: distended, tenderness, guarding Extremities exam: Present: normal inspection, normal capillary refill Neurological exam: Present: alert, oriented X3, CN II-XII intact. Absent: motor sensory deficit Skin exam: Present: warm, dry, intact. Absent: cyanosis, diaphoretic <NiltonparulishaanKhanh N - Last Filed: 11/15/22 14:24> - General Exam Comments Initial Comments: Visual Physical Exam Vital signs reviewed General: Well-appearing, nontoxic, no acute distress. Head: Normocephalic, atraumatic Eyes: PERRLA, EOMI ENT: Airway patent Chest: Nonlabored breathing Skin: No visual rash, normal skin tone Neuro: Alert and oriented 3 Musculoskeletal: No gross abnormalities (Noah Camara) Course Vital Signs 11/15/22 11:58 Temperature 98.0 F Pulse Rate 76 Respiratory 18 Rate Blood Pressure 110/56 O2 Sat by Pulse 94 L Oximetry Chest Pain MDM <Noah Camara - Last Filed: 11/15/22 13:21> <Khanh Santiago - Last Filed: 11/15/22 14:24> - MDM I performed a quick note portion of this chart signed Noah Camara PA-C (Noah Camara) Was pt. sent in by a medical professional or institution ([facility] Torres, DOWEL POINTER, urgent care, hospital, or group home...) When possible be specific @ -No Did you speak to anyone other than the patient for history (EMS, parent, family, police, friend...)? What history was obtained from this source @ -No Did you review nursing and triage notes (agree or disagree)? Why? @ -I reviewed and agree with nursing and triage notes Were old charts reviewed (outside hosp., previous admission, EMS record, old EKG, old radiological studies, urgent care reports/EKG's, group home records)? Report findings @ -No old charts were reviewed Differential Diagnosis (chest pain, altered mental status, abdominal pain women, abdominal pain men, vaginal bleeding, weakness, fever, dyspnea, syncope, headache, dizziness, GI bleed, back pain, seizure, CVA, palpatations, mental health, musculoskeletal)? @ -not applicable EKG interpreted by me (3pts min.). @ -[Right bundle-branch block rate of 78, FL interval 184, QRS duration 129, QTC 413, no ST segment elevation, compared to EKG August 2020 with similar appearance X-rays interpreted by me (1pt min.). @No nelida consolidation, no acute findings on chest x-ray CT interpreted by me (1pt min.). @ -None done U/S interpreted by me (1pt. min.). @ -None done What testing was considered but not performed or refused? (CT, X-rays, U/S, labs)? Why? @ -None What meds were considered but not given or refused? Why? @ -None Did you discuss the management of the patient with other professionals (professionals i.e. DrJavier, PA, DOWEL POINTER, lab, RT, psych nurse, social studies teacher, digital analyst, teacher, retail loss prevention officer, rehabilitation case coordinator)? Give summary @ -No Was smoking cessation discussed for >3mins.? @ -No Was critical care preformed (if so, how long)? @ -No Were there social determinants of health that impacted care today? How? (Homelessness, low income, unemployed, alcoholism, drug addiction, transportation, low edu. Level, literacy, decrease access to med. care, fdc, rehab)? @ -No Was there de-escalation of care discussed even if they declined (Discuss DNR or withdrawal of care, Hospice)? DNR status @ -No What co-morbidities impacted this encounter? (DM, HTN, Smoking, COPD, CAD, Cancer, CVA, ARF, Chemo, Hep., AIDS, mental health diagnosis, sleep apnea, morbid obesity)? @CAD Was patient admitted / discharged? Hospital course, mention meds given and route, prescriptions, significant lab abnormalities, going to OR and other pertinent info. @ -87-year-old male with episodic chest pain with history of coronary artery disease per patient states that he's had intermittent chest pain for some time but yesterday evening he was more severe. Has resolved. He had seen his primary care provider and sent to the emergency department for evaluation. He has no chest pain at time my evaluation. No tenderness. I did obtain chest x- ray, laboratory testing including CBC, CMP, troponin. This testing is unremarkable. His EKG appears unchanged from prior. I had contacted the admitting physician Dr. Mera with plans to admit this patient for chest pain rule out over the patient declines admission. Prefers to follow as an outpatient. He states he will return if he has any worsening or changing symptoms. Undiagnosed new problem with uncertain prognosis? @ -No Drug Therapy requiring intensive monitoring for toxicity (Heparin, Nitro, Insuli n, Cardizem)? @ -No Were any procedures done? @ -No Diagnosis/symptom? @ -Chest pain Acute, or Chronic, or Acute on Chronic? @ -Acute on chronic Uncomplicated (without systemic symptoms) or Complicated (systemic symptoms)? @ -default Side effects of treatment? @ -No Exacerbation, Progression, or Severe Exacerbation? @ -No Poses a threat to life or bodily function? How? (Chest pain, [place], [place], pneumonia, PE, COPD, DKA, ARF, appy, cholecystitis, CVA, Diverticulitis, Homicidal, Suicidal, threat to staff... and all critical care pts) @ -[Yes, ACS (Khanh Santiago) Disposition <Noah Camara - Last Filed: 11/15/22 13:21> Is patient prescribed a controlled substance at d/c from ED?: No Time of Disposition: 14:24 <Khanh Santiago - Last Filed: 11/15/22 14:24> Clinical Impression: Chest pain Disposition: HOME SELF-CARE Condition: Fair Instructions (If sedation given, give patient instructions): Chest Pain (ED) Referrals: Kingston Thomas MD [Primary Care Provider] - 1-2 days Jim Red MD [STAFF PHYSICIAN] - 1-2 days
[2022-11-15 14:52] VITALS: BP 127/72; PULSE 80
== END 2022-11-15 14:46 | disposition home or self-care (01) ==
LOC: EC 11:41
DX: R07.89 Other chest pain (principal); E11.40 Type 2 diabetes mellitus with diabetic neuropathy, unspecified; I25.2 Old myocardial infarction; M19.90 Unspecified osteoarthritis, unspecified site; Z79.84 Long term (current) use of oral hypoglycemic drugs; Z79.82 Long term (current) use of aspirin; Z79.02 Long term (current) use of antithrombotics/antiplatelets; Z79.899 Other long term (current) drug therapy
CPT/HCPCS: 36415; 71046; 80053; 83735; 84484; 85025; 85610; 85730; 93005; 99285

== ENCOUNTER 2022-11-18 10:48 | Inpatient (IN) | payer MEDICARE ==
[2022-11-18] MEDS ORDERED: SODIUM CHLORIDE 0.9% 1,000 ML IV STA (12:37)
--- NOTE | 2022-11-18 12:41 | ED ---
General Adult HPI - General Chief complaint: Urogenital Stated complaint: UTI Time Seen by Provider: 11/18/22 12:15 Source: patient, family, RN notes reviewed, old records reviewed Mode of arrival: ambulatory Limitations: no limitations - History of Present Illness Initial comments: 79-year-old male history of heart disease with stents diverticulitis and with appears be chronic chest pain who was here on the second of this month reevaluation chest pain is back today because of 4 days of chills lethargy decreased appetite and some confusional issues as per his daughter. He just states she does not feel well he still has the right-sided chest pain he's had for last year he also states she's not been urinating as much and is more frequently usual getting up for 5 times per night. He is scheduled to see urologist in 4 days. He denies any overt fever chills no cough no phlegm production - Related Data Home Medications Medication Instructions Recorded Confirmed Tamsulosin HCl [Flomax] 0.4 mg PO HS 10/06/13 11/18/22 metFORMIN HCL [Glucophage] 500 mg PO BID 10/06/13 11/18/22 Dutasteride [Avodart] 0.5 mg PO HS 07/15/16 11/18/22 DULoxetine HCL [Cymbalta] 30 mg PO HS 12/24/19 11/18/22 Aspirin EC [Ecotrin Low Dose] 81 mg PO DAILY 08/28/20 11/18/22 Cholecalciferol [Vitamin D3 (25 25 mcg PO DAILY 08/28/20 11/18/22 Mcg = 1000 Iu)] Docusate [Colace] 100 mg PO HS 08/28/20 11/18/22 Magnesium Oxide [Escalona] 500 mg PO DAILY 08/28/20 11/18/22 Metoprolol Tartrate [Lopressor] 12.5 mg PO BID 08/28/20 11/18/22 Nitroglycerin Sl Tabs [Nitrostat] 0.4 mg SUBLINGUAL Q5M PRN 08/28/20 11/18/22 Vitamin K2 100 mcg PO DAILY 08/28/20 11/18/22 Zinc 50 mg PO DAILY 08/28/20 11/18/22 Cyanocobalamin (Vitamin B-12) 1,000 mcg PO HS 11/18/22 11/18/22 [Vitamin B-12] Folic Acid 0.4 mg PO HS 11/18/22 11/18/22 Rosuvastatin [Crestor] 10 mg PO HS 11/18/22 11/18/22 Saw [place] 500 mg PO DAILY 11/18/22 11/18/22 Sennosides [Senokot] 8.6 mg PO BID 11/18/22 11/18/22 polyethylene glycoL 3350 [Miralax] 17 gm PO DAILY 11/18/22 11/18/22 Allergies Allergy/AdvReac Type Severity Reaction Status Date / Time No Known Allergies Allergy Verified 11/18/22 14:01 Review of Systems ROS Statement: Those systems with pertinent positive or pertinent negative responses have been documented in the HPI. ROS Other: All systems not noted in ROS Statement are negative. Past Medical History Past Medical History: Diabetes Mellitus, Myocardial Infarction ([place]), Os teoarthritis ([place]), Prostate Disorder, Skin Disorder Additional Past Medical History / Comment(s): Neuropathy. Psoriasis., Last Myocardial Infarction Date:: 2020 History of Any Multi-Drug Resistant Organisms: None Reported Past Surgical History: Back Surgery, Bowel Resection, Heart Catheterization With Stent Additional Past Surgical History / Comment(s): Back surgery X3. Past Anesthesia/Blood Transfusion Reactions: No Reported Reaction Date of Last Stent Placement:: 2020 Past Psychological History: No Psychological Hx Reported Smoking Status: Never smoker Past Alcohol Use History: None Reported Past Drug Use History: None Reported - Past Family History Father Family Medical History: Cancer Additional Family Medical History / Comment(s): Colon Cancer. Brother(s) Family Medical History: Cancer Additional Family Medical History / Comment(s): Colon Cancer. General Exam - General Exam Comments Initial Comments: This is a well-developed well-nourished awake alert oriented 4 male Limitations: no limitations General appearance: alert, lethargic Head exam: Present: atraumatic, normocephalic, normal inspection Eye exam: Present: normal appearance, PERRL, EOMI. Absent: scleral icterus, conjunctival injection, periorbital swelling ENT exam: Present: mucous membranes dry Neck exam: Present: normal inspection. Absent: tenderness, meningismus, lymphadenopathy Respiratory exam: Present: normal lung sounds bilaterally. Absent: respiratory distress, wheezes, rales, rhonchi, stridor Cardiovascular Exam: Present: regular rate, normal rhythm, normal heart sounds. Absent: systolic murmur, diastolic murmur, rubs, gallop, clicks GI/Abdominal exam: Present: soft, tenderness (Mild left lower quadrant tenderness palpation no overt guarding or bowel masses or bruits), normal bowel sounds. Absent: distended, guarding, rebound, rigid Rectal exam: Present: deferred Extremities exam: Present: normal inspection, full ROM, normal capillary refill. Absent: tenderness, pedal edema, joint swelling, calf tenderness Back exam: Present: normal inspection Neurological exam: Present: alert, oriented X3, CN II-XII intact Psychiatric exam: Present: normal affect, normal mood Skin exam: Present: warm, dry, intact, normal color. Absent: rash Course Vital Signs 11/18/22 11/18/22 11:43 14:41 Temperature 97.9 F Pulse Rate 101 H 91 Respiratory 18 32 H Rate Blood Pressure 116/65 O2 Sat by Pulse 95 Oximetry EKG Findings - EKG Results: EKG: interpreted by ERMD (EKG interpreted by me sinus rhythm rate 94. Interval 191 QRS duration 133 daily since QTC 356/408> block pattern) Medical Decision Making - Medical Decision Making I did discuss the findings with the patient and with family members present he does demonstrate evidence of right midlung pneumonia as well as dehydration and chest wall pain. He is been having some cognitive issues also likely secondary to the infection he will be admitted to the hospital for IV antibiotics IV hydration and further evaluation. I did discuss the case with Dr. Benavidez. Was pt. sent in by a medical professional or institution (, PA, FLUID DESIGNER, urgent care, hospital, or [facility]...) When possible be specific @ -No Did you speak to anyone other than the patient for history (EMS, parent, family, police, friend...)? What history was obtained from this source @ -Family Did you review nursing and triage notes (agree or disagree)? Why? @ -I reviewed and agree with nursing and triage notes Were old charts reviewed (outside hosp., previous admission, EMS record, old EKG, old radiological studies, urgent care reports/EKG's, [facility] records)? Report findings @ -Previous admission old charts were reviewed Differential Diagnosis (chest pain, altered mental status, abdominal pain women, abdominal pain men, vaginal bleeding, weakness, fever, dyspnea, syncope, headache, dizziness, GI bleed, back pain, seizure, CVA, palpatations, mental health, musculoskeletal)? @ -Infection, chest pain EKG interpreted by me (3pts min.). @ -As above EKG interpreted by me rate 94 sinus rhythm WA interval 191 QRS duration 133 daily since QTC 356/4 weight right bundle-branch block left anterior fascicular block patterns seen X-rays interpreted by me (1pt min.). @ -Chest x-ray interpreted by me evidence a right midlung infiltrate] CT interpreted by me (1pt min.). @ -None done U/S interpreted by me (1pt. min.). @ -None done What testing was considered but not performed or refused? (CT, X-rays, U/S, labs)? Why? @ -None What meds were considered but not given or refused? Why? @ -None Did you discuss the management of the patient with other professionals (professionals i.e. , PA, FLUID DESIGNER, lab, RT, psych nurse, social work instructor, custom frame assembler, teacher, textile technical officer, rifle case repairer)? Give summary @ -Dr. Benavidez Was smoking cessation discussed for >3mins.? @ -No Was critical care preformed (if so, how long)? @ -No Were there social determinants of health that impacted care today? How? (Homelessness, low income, unemployed, alcoholism, drug addiction, transportation, low edu. Level, literacy, decrease access to med. care, alf, rehab)? @ -No Was there de-escalation of care discussed even if they declined (Discuss DNR or withdrawal of care, Hospice)? DNR status @ -No What co-morbidities impacted this encounter? (DM, HTN, Smoking, COPD, CAD, Cancer, CVA, ARF, Chemo, Hep., AIDS, mental health diagnosis, sleep apnea, morbid obesity)? @ -Diabetes, history of heart disease, prostate disease Was patient admitted / discharged? Hospital course, mention meds given and route, prescriptions, significant lab abnormalities, going to OR and other pertinent info. @ -hospital course she was admitted for inpatient IV antibiotics and hydration Undiagnosed new problem with uncertain prognosis? @ -Pneumonia] Drug Therapy requiring intensive monitoring for toxicity (Heparin, Nitro, Insulin, Cardizem)? @ -No Were any procedures done? @ -No Diagnosis/symptom? @ -Right midlung pneumonia, dehydration, chills, confusional state Acute, or Chronic, or Acute on Chronic? @ -Acute Uncomplicated (without systemic symptoms) or Complicated (systemic symptoms)? @ -Complicated Side effects of treatment? @ -No Exacerbation, Progression, or Severe Exacerbation? @ -No Poses a threat to life or bodily function? How? (Chest pain, [place], [place], pneumonia, PE, COPD, DKA, ARF, appy, cholecystitis, CVA, Diverticulitis, Homicidal, Suic idal, threat to staff... and all critical care pts) @ -Pneumonia - Lab Data Result diagrams: 11/18/22 10:54 11/18/22 13:04 Lab Results 11/18/22 11/18/22 11/18/22 Range/Units 10:54 13:04 13:04 WBC 8.3 (3.8-10.6) k/uL RBC 4.80 (4.30-5.90) m/uL Hgb 15.0 (13.0-17.5) gm/dL Hct 44.4 (39.0-53.0) % MCV 92.5 (80.0-100.0) fL MCH 31.2 (25.0-35.0) pg MCHC 33.7 (31.0-37.0) g/dL RDW 12.8 (11.5-15.5) % Plt Count 196 (150-450) k/uL MPV 8.0 Neutrophils % 80 % Lymphocytes % 10 % Monocytes % 7 % Eosinophils % 2 % Basophils % 0 % Neutrophils # 6.6 (1.3-7.7) k/uL Lymphocytes # 0.8 L (1.0-4.8) k/uL Monocytes # 0.6 (0-1.0) k/uL Eosinophils # 0.1 (0-0.7) k/uL Basophils # 0.0 (0-0.2) k/uL Sodium 135 L (137-145) mmol/L Potassium 4.1 (3.5-5.1) mmol/L Chloride 99 (98-107) mmol/L Carbon Dioxide 25 (22-30) mmol/L Anion Gap 11 mmol/L BUN 16 (9-20) mg/dL Creatinine 0.91 (0.66-1.25) mg/dL Est GFR (CKD-EPI)AfAm 87 (>60 ml/min/1.73 sqM) Est GFR (CKD-EPI)NonAf 75 (>60 ml/min/1.73 sqM) Glucose 153 H (74-99) mg/dL Plasma Lactic Acid Sal (0.7-2.0) mmol/L Calcium 8.8 (8.4-10.2) mg/dL Total Bilirubin 1.3 (0.2-1.3) mg/dL AST 25 (17-59) U/L ALT 14 (4-49) U/L Alkaline Phosphatase 56 (38-126) U/L Creatine Kinase 82 (55-170) U/L Troponin I (0.000-0.034) ng/mL Total Protein 6.1 L (6.3-8.2) g/dL Albumin 3.6 (3.5-5.0) g/dL Urine Color Yellow Urine Appearance Clear (Clear) Urine pH 5.5 (5.0-8.0) Ur Specific [place] 1.024 (1.001-1.035) Urine Protein 1+ H (Negative) Urine Glucose (UA) Trace H (Negative) Urine Ketones 1+ H (Negative) Urine Blood Negative (Negative) Urine Nitrite Negative (Negative) Urine Bilirubin Negative (Negative) Urine Urobilinogen 2.0 (<2.0) mg/dL Ur Leukocyte Esterase Trace H (Negative) Urine RBC 3 (0-5) /hpf Urine WBC 5 (0-5) /hpf Ur Squamous Epith Cells <1 (0-4) /hpf Amorphous Sediment Rare H (None) /hpf Urine Mucus Occasional H (None) /hpf Influenza Type A (PCR) (Not Detectd) Influenza Type B (PCR) (Not Detectd) RSV (PCR) (Not Detectd) SARS-CoV-2 (PCR) (Not Detectd) 11/18/22 11/18/22 11/18/22 Range/Units 13:04 13:04 13:04 WBC (3.8-10.6) k/uL RBC (4.30-5.90) m/uL Hgb (13.0-17.5) gm/dL Hct (39.0-53.0) % MCV (80.0-100.0) fL MCH (25.0-35.0) pg MCHC (31.0-37.0) g/dL RDW (11.5-15.5) % Plt Count (150-450) k/uL MPV Neutrophils % % Lymphocytes % % Monocytes % % Eosinophils % % Basophils % % Neutrophils # (1.3-7.7) k/uL Lymphocytes # (1.0-4.8) k/uL Monocytes # (0-1.0) k/uL Eosinophils # (0-0.7) k/uL Basophils # (0-0.2) k/uL Sodium (137-145) mmol/L Potassium (3.5-5.1) mmol/L Chloride (98-107) mmol/L Carbon Dioxide (22-30) mmol/L Anion Gap mmol/L BUN (9-20) mg/dL Creatinine (0.66-1.25) mg/dL Est GFR (CKD-EPI)AfAm (>60 ml/min/1.73 sqM) Est GFR (CKD-EPI)NonAf (>60 ml/min/1.73 sqM) Glucose (74-99) mg/dL Plasma Lactic Acid Sal 1.7 (0.7-2.0) mmol/L Calcium (8.4-10.2) mg/dL Total Bilirubin (0.2-1.3) mg/dL AST (17-59) U/L ALT (4-49) U/L Alkaline Phosphatase (38-126) U/L Creatine Kinase (55-170) U/L Troponin I <0.012 (0.000-0.034) ng/mL Total Protein (6.3-8.2) g/dL Albumin (3.5-5.0) g/dL Urine Color Urine Appearance (Clear) Urine pH (5.0-8.0) Ur Specific [place] (1.001-1.035) Urine Protein (Negative) Urine Glucose (UA) (Negative) Urine Ketones (Negative) Urine Blood (Negative) Urine Nitrite (Negative) Urine Bilirubin (Negative) Urine Urobilinogen (<2.0) mg/dL Ur Leukocyte Esterase (Negative) Urine RBC (0-5) /hpf Urine WBC (0-5) /hpf Ur Squamous Epith Cells (0-4) /hpf Amorphous Sediment (None) /hpf Urine Mucus (None) /hpf Influenza Type A (PCR) Not Detected (Not Detectd) Influenza Type B (PCR) Not Detected (Not Detectd) RSV (PCR) Not Detected (Not Detectd) SARS-CoV-2 (PCR) Not Detected (Not Detectd) - Radiology Data Interpreted by me: Imaging interpreted by me evidence of her right midlung infiltrate Disposition Clinical Impression: Pneumonia, Dehydration, Chest wall pain, Confusion state, Chills (without fever) Disposition: ADMITTED IP TO THIS [facility] Condition: Stable Referrals: Kingston Thomas MD [Primary Care Provider] - 1-2 days Decision Date: 11/18/22 Decision Time: 15:50
[2022-11-18 13:32] LABS: Basophils % (A) 0 %; Eosinophils # (A) 0.1 k/uL (0-0.7); Eosinophils % (A) 2 %; HCT 44.4 % (39.0-53.0); Lymphocytes # (A) 0.8 k/uL (1.0-4.8); Lymphocytes % (A) 10 %; MCH 31.2 pg (25.0-35.0); MCHC 33.7 g/dL (31.0-37.0); MCV 92.5 fL (80.0-100.0); Monocytes # (A) 0.6 k/uL (0-1.0); Monocytes % (A) 7 %; Neutrophils # (A) 6.6 k/uL (1.3-7.7); Neutrophils % (A) 80 %; Platelet Count 196 k/uL (150-450); RDW 12.8 % (11.5-15.5); WBC 8.3 k/uL (3.8-10.6)
[2022-11-18 13:50] LABS: ALT 14 U/L (4-49); AST 25 U/L (17-59); African American GFR (CKD) 87 (>60 ml/min/1.73 sqM); Albumin 3.6 g/dL (3.5-5.0); Alkaline Phosphatase 56 U/L (38-126); Anion Gap 11 mmol/L; Blood Urea Nitrogen 16 mg/dL (9-20); Calcium 8.8 mg/dL (8.4-10.2); Carbon Dioxide 25 mmol/L (22-30); Chloride 99 mmol/L (98-107); Creatine Kinase 82 U/L (55-170); Glucose 153 mg/dL (74-99); Non-African American GFR(CKD) 75 (>60 ml/min/1.73 sqM); Potassium 4.1 mmol/L (3.5-5.1); Sodium 135 mmol/L (137-145); Total Bilirubin 1.3 mg/dL (0.2-1.3); Total Protein 6.1 g/dL (6.3-8.2)
--- NOTE | 2022-11-18 14:13 | XR ---
EXAMINATION TYPE: XR chest 2V DATE OF EXAM: 11/18/2022 COMPARISON: 11/15/2022 TECHNIQUE: PA and lateral views submitted. HISTORY: Chest pain FINDINGS: Limited inspiration with elevated right hemidiaphragm. Diffuse osteopenia and AC joint arthropathy. A therosclerotic change aorta. Subsegmental changes in the bowel in the right lung noted posteriorly. H ypertrophic and degenerative changes of the spine. IMPRESSION: 1. Variant area of increased density in the lateral view likely corresponding to a right perihilar [place] infiltrate correlate for pneumonia. Follow-up to resolution to exclude underlying neoplasm.
--- NOTE | 2022-11-18 14:14 | XR ---
EXAMINATION TYPE: XR KUB DATE OF EXAM: 11/18/2022 COMPARISON: 07/15/2016 HISTORY: Pain TECHNIQUE: One view abdominal series FINDINGS: The osseous structures are intact. The bowel gas pattern is nonspecific. There are dilated bowel loo ps. Hypertrophic and degenerative change of the spine. Diffuse osteopenia and arthropathy of the hips . Vascular calcifications noted. IMPRESSION: 1. Dilated bowel loops. Air is seen within the rectum. Findings could be on the basis of an ileus. Co rrelate clinically.
[2022-11-18 15:50] LABS: Amorphous Sediment,Urine Rare /hpf; Appearance,Urine Clear (Clear); Bilirubin,Urine Negative (Negative); Blood,Urine Negative (Negative); Color,Urine Yellow; Glucose,Urine (UA) Trace (Negative); Ketones,Urine 1+ (Negative); Leukocyte Esterase,Urine Trace (Negative); Mucus,Urine Occasional /hpf; Nitrite,Urine Negative (Negative); PH, Urine 5.5 (5.0-8.0); Protein,Urine 1+ (Negative); RBC,Urine 3 /hpf (0-5); Specific Gravity,Urine 1.024 (1.001-1.035); Squamous Epithelial Cell,Urine <1 /hpf (0-4); WBC,Urine 5 /hpf (0-5)
[2022-11-18] MEDS ORDERED: cefTRIAXone IN SWFI 1,000 MG/10 ML SYRINGE IVP STA (15:56)
[2022-11-18] MEDS ORDERED: ACETAMINOPHEN TAB 325 MG TAB PO PRN (16:07)
[2022-11-18] MEDS ORDERED: AZITHROMYCIN 500 MG in SODIUM CHLORIDE 0.9% 250 ML IVPB STA (16:07)
[2022-11-18] MEDS ORDERED: PNEUMONIA PROTOCOL UTILIZED 1 EACH MISC PO PRN (16:07)
[2022-11-18] MEDS ORDERED: NITROGLYCERIN SL TABS 0.4 MG TAB SUBLINGUAL PRN (16:11)
[2022-11-18] MEDS ORDERED: metFORMIN 500 MG TAB PO SCH (17:30)
--- NOTE | 2022-11-18 17:58 | CT ---
EXAMINATION TYPE: CT chest angio for PE DATE OF EXAM: 11/18/2022 COMPARISON: NONE HISTORY: chest pain CT DLP: 387.4 mGycm. Automated Exposure Control for Dose Reduction was Utilized. CONTRAST: CTA scan of the thorax is performed with IV Contrast, patient injected with 100 mL of Isovu e 370. MIP Images are created on CT scanner and reviewed. 3D reconstructed images are created on an independent workstation and reviewed. FINDINGS: Limitation of the study: Moderately significant patient motion artifact degradation of the images. LUNGS: The lungs demonstrate focal consolidative opacity in the posterior segment of the right upper lobe, suggesting pneumonia. There is also a bilateral silhouetting of the pulmonary vasculature with a basilar predominance symme trically throughout the lungs, with scant bilateral pleural effusions, consistent with interstitial p hase pulmonary edema. MEDIASTINUM: There is satisfactory enhancement of the pulmonary artery and its branches without CT ev idence for pulmonary embolism. No acute aortic process. There are no greater than 1 cm hilar or media stinal lymph nodes. There are prominent left and right coronary calcifications. Mild cardiomegaly or pericardial effusion is seen. OTHER: No additional significant abnormality is seen. IMPRESSION: Negative for pulmonary embolism. RUL posterior segment pneumonia. Interstitial phase pulmonary edema.
[2022-11-18] MEDS ORDERED: ONDANSETRON 4 MG/2 ML VIAL IVP PRN (18:42)
[2022-11-18] MEDS ORDERED: NALOXONE 0.4 MG/ML 1 ML VIAL IVP PRN (18:42)
[2022-11-18] MEDS ORDERED: DEXTROSE 50% SYRINGE 50 ML IVP PRN ×2 (18:44)
--- NOTE | 2022-11-18 18:47 | P.HPIM ---
History of Present Illness H&P Date: 11/18/22 Patient is an 87-year-old gentleman with a history of coronary artery disease status post stenting 2, diabetes mellitus, neuropathy, and psoriasis who presented to the emergency department secondary to chills and chest pain. In the ER he underwent an extensive evaluation. On arrival he was tachycardic with a pulse of 101, remainder of his vitals are within normal. Laboratory analysis included CBC, BMP, and ALT. Unremarkable. Troponin was negative at less than 012. Urinalysis did show protein, glucose, and ketones. Influenza A/B/RSV/COVID-19 testing was negative. Chest x-ray showed very an area of increased density in the right perihilar region possible pneumonia. KUB demonstrated dilated bowel loops consistent with possible ileus. 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 Patient seen and examined at bedside with present in the emergency depa rtment. helps history gathering. 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 Approximately 4 days ago his chest heaviness became worse at that point in time he sought care in the emergency department and was cleared for discharge home. Since that time he has been having chills at night without fevers. He has had worsening pressure in his chest. He is also had increased fatigue and decreased appetite. He also reports some left lower quadrant pain and urinary difficulties. His reports that the urinary difficulties have been going on for quite some time and have an appointment with the urologist on Tuesday. He has had a decreased appetite over the last several days and has just not seem to himself. When he was unable to go to work his became significantly worried and therefore they report presented to the emergency department. His also reports increased confusion. He denies any diarrhea or constipation. He follows with Dr. Red for cardiology. His reports he has had a recent echocardiogram completed within the last 6 months. Vital signs reviewed General: nontoxic, no distress, appears at stated age Derm: warm, dry Eyes: EOMI, no lid lag, anicteric sclera, pupils equal round reactive to light ENT: Nose and ears atraumatic, no thrush, no pharyngeal erythema Cardiovascular: S1S2 reg, no murmur, positive posterior tibial pulse bilateral, no edema, capillary refill less than 2 seconds Lungs: clear to auscultation bilateral, no rhonchi, no rales, no wheeze, no accessory muscle use Abdominal: soft, nontender to palpation, no guarding, no appreciable organomegaly, normal bowel sounds Ext: no gross muscle atrophy, muscle strength 5 out of 5 in all 4 extremities, no contractures Neuro: CN II-XII grossly intact, light touch intact all 4 extremities, finger to nose within normal limits, Psych: Alert, oriented, appropriate affect Assessment/Plan: Pneumonia Chest pain Clinical dehydration -Rocephin, Zithromax -Sputum culture -Legionella urine antigen -Check CTA chest to rule out pulmonary embolism -Serial troponins -Obtain records from Dr. Red's office regarding most recent echocardiogram -IV fluids -Aspirin 81 mg daily, Lipitor 20 mg daily Diabetes mellitus type 2 with neuropathy -Hold metformin -Sliding-scale insulin -Follow blood sugars Chronic: Coronary artery disease Prostate disorder Imaging: As per HPI Data Review: As per HPI The patient is admitted with an anticipated greater than 2 midnight stay for evaluation of Pneumonia Surrogate decision-maker: CODE STATUS: Full Code DVT prophylaxis: Lovenox Anticipated discharge date: Pending Clinical Course Anticipated discharge place: Pending Clinical Course This dictation was prepared using [employer] voice recognition software. Though every attempt is made to correct errors during dictation some may still exist. Past Medical History Past Medical History: Diabetes Mellitus, Myocardial Infarction ([place]), Osteoarthritis (OA), Prostate Disorder, Skin Disorder Additional Past Medical History / Comment(s): Neuropathy. Psoriasis., Last Myocardial Infarction Date:: 2020 History of Any Multi-Drug Resistant Organisms: None Reported Past Surgical History: Back Surgery, Bowel Resection, Heart Catheterization With Stent Additional Past Surgical History / Comment(s): Back surgery X3. Past Anesthesia/Blood Transfusion Reactions: No Reported Reaction Date of Last Stent Placement:: 2020 Past Psychological History: No Psychological Hx Reported Smoking Status: Never smoker Past Alcohol Use History: None Reported Past Drug Use History: None Reported - Past Family History Father Family Medical History: Cancer Additional Family Medical History / Comment(s): Colon Cancer. Brother(s) Family Medical History: Cancer Additional Family Medical History / Comment(s): Colon Cancer. Medications and Allergies Home Medications Medication Instructions Recorded Confirmed Type Tamsulosin HCl [Flomax] 0.4 mg PO HS 10/06/13 11/18/22 History metFORMIN HCL [Glucophage] 500 mg PO BID 10/06/13 11/18/22 History Dutasteride [Avodart] 0.5 mg PO HS 07/15/16 11/18/22 History DULoxetine HCL [Cymbalta] 30 mg PO HS 12/24/19 11/18/22 History Aspirin EC [Ecotrin Low Dose] 81 mg PO DAILY 08/28/20 11/18/22 History Cholecalciferol [Vitamin D3 (25 25 mcg PO DAILY 08/28/20 11/18/22 History Mcg = 1000 Iu)] Docusate [Colace] 100 mg PO HS 08/28/20 11/18/22 History Magnesium Oxide [[place]] 500 mg PO DAILY 08/28/20 11/18/22 History Metoprolol Tartrate [Lopressor] 12.5 mg PO BID 08/28/20 11/18/22 History Nitroglycerin Sl Tabs [Nitrostat] 0.4 mg SUBLINGUAL Q5M PRN 08/28/20 11/18/22 History Vitamin K2 100 mcg PO DAILY 08/28/20 11/18/22 History Zinc 50 mg PO DAILY 08/28/20 11/18/22 History Cyanocobalamin (Vitamin B-12) 1,000 mcg PO HS 11/18/22 11/18/22 History [Vitamin B-12] Folic Acid 0.4 mg PO HS 11/18/22 11/18/22 History Rosuvastatin [Crestor] 10 mg PO HS 11/18/22 11/18/22 History Saw [place] 500 mg PO DAILY 11/18/22 11/18/22 History Sennosides [Senokot] 8.6 mg PO BID 11/18/22 11/18/22 History polyethylene glycoL 3350 [Miralax] 17 gm PO DAILY 11/18/22 11/18/22 History Allergies Allergy/AdvReac Type Severity Reaction Status Date / Time No Known Allergies Allergy Verified 11/18/22 14:01 Physical Exam Osteopathic Statement: *. No significant issues noted on an osteopathic struc tural exam other than those noted in the History and Physical/Consult. Vitals: Vital Signs Temp Pulse Resp BP Pulse Ox 11/18/22 18:00 98.6 F 110 H 20 137/68 97 11/18/22 16:14 100 20 123/60 93 L 11/18/22 16:00 22 11/18/22 14:41 91 32 H 11/18/22 11:43 97.9 F 101 H 18 116/65 95 Intake and Output 11/18/22 11/18/22 11/18/22 06:59 14:59 22:59 Other: Weight 85.275 kg Results CBC & Chem 7: 11/18/22 10:54 11/18/22 13:04 Labs: Abnormal Lab Results - Last 24 Hours (Table) 11/18/22 11/18/22 11/18/22 Range/Units 10:54 13:04 13:04 Lymphocytes # 0.8 L (1.0-4.8) k/uL Sodium 135 L (137-145) mmol/L Glucose 153 H (74-99) mg/dL Total Protein 6.1 L (6.3-8.2) g/dL Urine Protein 1+ H (Negative) Urine Glucose (UA) Trace H (Negative) Urine Ketones 1+ H (Negative) Ur Leukocyte Esterase Trace H (Negative) Amorphous Sediment Rare H (None) /hpf Urine Mucus Occasional H (None) /hpf
[2022-11-18 19:40] LABS: Glucose,Whole Blood 142 mg/dL (70-110)
[2022-11-18] MEDS: INSULIN ASPART (NovoLOG) 100 UNIT/ML VIAL SQ SCH (20:00)
[2022-11-18 20:10] VITALS: RESP 18
[2022-11-18] MEDS: METOPROLOL TARTRATE 12.5 MG TAB PO SCH (20:14)
[2022-11-18] MEDS: SENNOSIDES 8.6 MG TAB PO SCH (20:14)
[2022-11-18] MEDS ORDERED: CYANOCOBALAMIN 500 MCG TAB PO SCH (21:00)
[2022-11-18] MEDS ORDERED: TAMSULOSIN 0.4 MG CAP.ER.24H PO SCH (21:00)
[2022-11-18] MEDS ORDERED: FOLIC ACID 1 MG TAB PO SCH (21:00)
[2022-11-18] MEDS ORDERED: ATORVASTATIN 20 MG TAB PO SCH (21:00)
[2022-11-18] MEDS ORDERED: DOCUSATE 100 MG CAP PO SCH (21:00)
[2022-11-18] MEDS ORDERED: DULoxetine HCL 30 MG CAPSULE.DR PO SCH (21:00)
[2022-11-18] MEDS ORDERED: FINASTERIDE 5 MG TAB PO SCH (21:00)
[2022-11-19 06:25] LABS: Glucose,Whole Blood 112 mg/dL (70-110)
[2022-11-19] MEDS: INSULIN ASPART (NovoLOG) 100 UNIT/ML VIAL SQ SCH ×2 (06:29→12:57)
[2022-11-19 06:54] LABS: African American GFR (CKD) >90 (>60 ml/min/1.73 sqM); Anion Gap 8 mmol/L; Blood Urea Nitrogen 16 mg/dL (9-20); Calcium 8.7 mg/dL (8.4-10.2); Carbon Dioxide 27 mmol/L (22-30); Chloride 102 mmol/L (98-107); Glucose 110 mg/dL (74-99); Non-African American GFR(CKD) 79 (>60 ml/min/1.73 sqM); Potassium 3.7 mmol/L (3.5-5.1); Sodium 137 mmol/L (137-145)
[2022-11-19] MEDS: METOPROLOL TARTRATE 12.5 MG TAB PO SCH (08:04)
[2022-11-19] MEDS: SENNOSIDES 8.6 MG TAB PO SCH (08:04)
[2022-11-19 08:16] VITALS: BP 124/71; PULSE 82; TEMP 97.3
--- NOTE | 2022-11-19 08:37 | XR ---
EXAMINATION TYPE: XR chest 2V DATE OF EXAM: 11/19/2022 COMPARISON: 11/18/2022 TECHNIQUE: PA and lateral views submitted. HISTORY: Cough FINDINGS: Right midlung area of masslike consolidation and pneumonia. There are now vague densities in the left lower and upper lobe. Could be in the patient's multifocal pneumonia. Follow resolution exclude mass . Limited inspiration. Heart size normal. Atherosclerotic change aorta. No other areas. Diffuse osteo penia with AC joint arthropathy IMPRESSION: 1. Stable appearing right mid lung. Mass collimation. A patchy infiltrate now seen in the left upper and lower lobe correlate for multifocal pneumonia.
[2022-11-19] MEDS ORDERED: NON FORMULARY DRUG (Saw Palmetto [Saw Palmetto] 500 MG Capsule) PO SCH (09:00)
[2022-11-19] MEDS ORDERED: ASPIRIN 81 MG PO SCH (09:00)
[2022-11-19] MEDS ORDERED: polyethylene glycoL 3350 17 GM POWD.PACK PO SCH (09:00)
[2022-11-19] MEDS ORDERED: MAGNESIUM OXIDE 400 MG TAB PO SCH (09:00)
[2022-11-19] MEDS ORDERED: AZITHROMYCIN 500 MG TAB PO SCH (09:00)
[2022-11-19] MEDS ORDERED: ZINC SULFATE 220 MG CAP PO SCH (09:00)
[2022-11-19] MEDS ORDERED: NON FORMULARY DRUG (Vitamin K2 [Vitamin K2] 100 MCG Capsule) PO SCH (09:00)
[2022-11-19 09:55] LABS: HCT 38.3 % (39.6-50.0); HGB 12.9 d/dL (13.0-17.0); MCH 30.2 pg (27.0-32.0); MCHC 33.7 d/dL (32.0-37.0); MCV 89.7 FL (80.0-97.0); Mean Platelet Volume 10.4 FL (9.5-12.2); NRBC Per 100 WBC 0 X 10*3/uL (0.00-0.01); Platelet Count 183 X 10*3/uL (140-440); RBC 4.27 X 10*6/uL (4.40-5.60); RDW 12.6 % (11.5-14.5)
[2022-11-19 12:08] LABS: Glucose,Whole Blood 130 mg/dL (70-110)
--- NOTE | 2022-11-19 15:07 | P.DS ---
Providers Date of admission: 11/18/22 16:07 Expected date of discharge: 11/19/22 Attending physician: Allison Vick DO Primary care physician: Kingston Thomas MD Hospital Course: Discharge Diagnosis: Community-acquired pneumonia, right upper lobe Chest pain, non cardiac Clinical dehydration Diabetes mellitus type 2 with neuropathy Coronary artery disease Prostate disorder Hospital Course: Patient is an 87-year-old gentleman with a history of coronary artery disease status post stenting 2, diabetes mellitus, neuropathy, and psoriasis who presented to the emergency department secondary to chills and chest pain. In the ER he underwent an extensive evaluation. On arrival he was tachycardic with a pulse of 101, remainder of his vitals are within normal. Laboratory analysis included CBC, BMP, and ALT. Unremarkable. Troponin was negative at less than 012. Urinalysis did show protein, glucose, and ketones. Influenza A/B/RSV/COVID-19 testing was negative. Chest x-ray showed very an area of increased density in the right perihilar region possible pneumonia. KUB demonstrated dilated bowel loops consistent with possible ileus. 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 He was admitted and was started on Rocephin and Zithromax. He progressed well. He remained afebrile and on room air. [facility], Dr. Red called and Spoke with the nurse to see the patient did not need a in-hospital evaluation for cardiac causes of his chest discomfort and he could be cleared for outpatient follow-up. Patient determined stable for discharge. Follow-up: Dr. Red next week, Dr. Thomas in 1-2 days, cefdinir 300 mg wice daily, zithromax 500 mg daily, repeat CXR in 2 weeks to ensure clearance of PNA. Patient seen and examined at bedside. He is feeling somewhat better. He denies any cough. He states that his chest discomfort is better than it was yesterday. We discussed that he needs to take a few days off. Vital signs reviewed and stable. General: nontoxic, no distress, appears at stated age Cardiovascular: S1S2 reg, no murmur, positive posterior tibial pulse bilateral, Lungs: CTA bilateral, no rhonchi, no rales , no accessory muscle use Abdominal: soft, nontender to palpation, no guarding, no appreciable organomegaly Ext: no gross muscle atrophy, no edema b/l lower extremities, no contractures Neuro: CN II-XI grossly intact, no focal neuro deficits Psych: Alert, oriented, appropriate affect A total of 32 minutes of time were spent preparing this complex discharge summary. Patient was discharged on 11/19/22. This dictation was prepared using [employer] voice recognition software. Though every attempt is made to correct errors during dictation some may still exist. Patient Condition at Discharge: Stable Plan - Discharge Summary New Discharge Prescriptions: New Cefdinir 300 mg PO Q12HR #8 cap Azithromycin [Zithromax] 500 mg PO DAILY 4 Days #4 tab Continue metFORMIN HCL [Glucophage] 500 mg PO BID Tamsulosin HCl [Flomax] 0.4 mg PO HS Dutasteride [Avodart] 0.5 mg PO HS DULoxetine HCL [Cymbalta] 30 mg PO HS Nitroglycerin Sl Tabs [Nitrostat] 0.4 mg SUBLINGUAL Q5M PRN PRN Reason: Chest Pain Zinc 50 mg PO DAILY Docusate [Colace] 100 mg PO HS Metoprolol Tartrate [Lopressor] 12.5 mg PO BID Magnesium Oxide [Escalona] 500 mg PO DAILY Cholecalciferol [Vitamin D3 (25 Mcg = 1000 Iu)] 25 mcg PO DAILY Aspirin EC [Ecotrin Low Dose] 81 mg PO DAILY Folic Acid 0.4 mg PO HS Cyanocobalamin (Vitamin B-12) [Vitamin B-12] 1,000 mcg PO HS polyethylene glycoL 3350 [Miralax] 17 gm PO DAILY Sennosides [Senokot] 8.6 mg PO BID Rosuvastatin [Crestor] 10 mg PO HS Vitamin K2 100 mcg PO DAILY Saw [place] 500 mg PO DAILY Discharge Medication List Tamsulosin HCl [Flomax] 0.4 mg PO HS 10/06/13 [History] metFORMIN HCL [Glucophage] 500 mg PO BID 10/06/13 [History] Dutasteride [Avodart] 0.5 mg PO HS 07/15/16 [History] DULoxetine HCL [Cymbalta] 30 mg PO HS 12/24/19 [History] Aspirin EC [Ecotrin Low Dose] 81 mg PO DAILY 08/28/20 [History] Cholecalciferol [Vitamin D3 (25 Mcg = 1000 Iu)] 25 mcg PO DAILY 08/28/20 [History] Docusate [Colace] 100 mg PO HS 08/28/20 [History] Magnesium Oxide [[place]] 500 mg PO DAILY 08/28/20 [History] Metoprolol Tartrate [Lopressor] 12.5 mg PO BID 08/28/20 [History] Nitroglycerin Sl Tabs [Nitrostat] 0.4 mg SUBLINGUAL Q5M PRN 08/28/20 [History] Vitamin K2 100 mcg PO DAILY 08/28/20 [History] Zinc 50 mg PO DAILY 08/28/20 [History] Cyanocobalamin (Vitamin B-12) [Vitamin B-12] 1,000 mcg PO HS 11/18/22 [History] Folic Acid 0.4 mg PO HS 11/18/22 [History] Rosuvastatin [Crestor] 10 mg PO HS 11/18/22 [History] Saw [place] 500 mg PO DAILY 11/18/22 [History] Sennosides [Senokot] 8.6 mg PO BID 11/18/22 [History] polyethylene glycoL 3350 [Miralax] 17 gm PO DAILY 11/18/22 [History] Azithromycin [Zithromax] 500 mg PO DAILY 4 Days #4 tab 11/19/22 [Rx] Cefdinir 300 mg PO Q12HR #8 cap 11/19/22 [Rx] Follow up Appointment(s)/Referral(s): Kingston Thomas MD [Primary Care Provider] - 1-2 days Jim Red MD [STAFF PHYSICIAN] - 1 Week Activity/Diet/Wound Care/Special Instructions: Activity: as tolerated Diet: Heart Healthy, Carb consistent Special Instructions: Recommend repeat chest x-ray in 2 weeks. Complete all antibiotics You need to take a few days off to recuperate. Thank you for trusting us with your care, we wish you well on your journey to better health. Discharge Disposition: HOME SELF-CARE
[2022-11-19 16:59] LABS: Chol/HDL Ratio 2.58 Ratio; LDL Cholesterol,Calculated 47.4 mg/dL (0.0-131.0); VLDL Calculation 18.82 mg/dL (5.00-40.00)
== END 2022-11-19 15:38 | disposition home or self-care (01) | DRG 194 ==
LOC: EC 10:48 → 4SSUR 16:07
PROVIDERS: ADMIT Internal Medicine; ATTEND Internal Medicine
DX: J18.9 Pneumonia, unspecified organism (principal); I45.2 Bifascicular block; N42.9 Disorder of prostate, unspecified; I25.10 Atherosclerotic heart disease of native coronary artery without angina pectoris; E86.0 Dehydration; E11.40 Type 2 diabetes mellitus with diabetic neuropathy, unspecified; L40.9 Psoriasis, unspecified; Z20.822 Contact with and (suspected) exposure to COVID-19; I25.2 Old myocardial infarction; Z79.82 Long term (current) use of aspirin; Z79.84 Long term (current) use of oral hypoglycemic drugs; Z79.899 Other long term (current) drug therapy; Z80.0 Family history of malignant neoplasm of digestive organs; Z95.5 Presence of coronary angioplasty implant and graft
CPT/HCPCS: 36415; 71046; 71275; 74018; 80048; 80053; 80061; 81001; 82550; 83036; 83605; 84145; 84484; 85025; 85027; 87040; 87449; 87636; 93005; 94760; 96361; 96365; 96366; 99285

== ENCOUNTER 2022-11-20 08:34 | Inpatient (IN) | payer MEDICARE ==
[2022-11-20] MEDS ORDERED: SODIUM CHLORIDE 0.9% 500 ML 500 ML IV ONE (08:54)
--- NOTE | 2022-11-20 09:08 | ED ---
General Adult HPI - General Chief complaint: Altered Mental Status Stated complaint: Altered Mental Status Time Seen by Provider: 11/20/22 08:40 Source: patient, RN notes reviewed, old records reviewed Mode of arrival: ambulatory Limitations: no limitations - History of Present Illness Initial comments: This is an 87-year-old male who is coming to the ER today because his been hallucinating all night. states she's was here on Tuesday for chest pain and then on Tuesday he diagnosed him here with pneumonia he was kept in the hospital yesterday. Patient states he went home with his they had dinner and he felt fine. states right after dinner he started to hallucinate thought there were people in the house that weren't there patient realizes is no one there but he sees them he states. Patient was also in bed thinking the ceiling was given a fall. 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 Patient doesn't know why his house is facing away it does even though his says they live in the house for 10 years he's describing the old house they live dizzy prior to that. Patient does note a year and patient does know who his is aware he has. Patient denies any pain currently patient denies headache patient denies any numbness weakness. Patient denies any fever chills patient denies any abdominal pain. Patient did start to antibiotics yesterday. - Related Data Home Medications Medication Instructions Recorded Confirmed Tamsulosin HCl [Flomax] 0.4 mg PO HS 10/06/13 11/18/22 metFORMIN HCL [Glucophage] 500 mg PO BID 10/06/13 11/18/22 Dutasteride [Avodart] 0.5 mg PO HS 07/15/16 11/18/22 DULoxetine HCL [Cymbalta] 30 mg PO HS 12/24/19 11/18/22 Aspirin EC [Ecotrin Low Dose] 81 mg PO DAILY 08/28/20 11/18/22 Cholecalciferol [Vitamin D3 (25 25 mcg PO DAILY 08/28/20 11/18/22 Mcg = 1000 Iu)] Docusate [Colace] 100 mg PO HS 08/28/20 11/18/22 Magnesium Oxide [Escalona] 500 mg PO DAILY 08/28/20 11/18/22 Metoprolol Tartrate [Lopressor] 12.5 mg PO BID 08/28/20 11/18/22 Nitroglycerin Sl Tabs [Nitrostat] 0.4 mg SUBLINGUAL Q5M PRN 08/28/20 11/18/22 Vitamin K2 100 mcg PO DAILY 08/28/20 11/18/22 Zinc 50 mg PO DAILY 08/28/20 11/18/22 Cyanocobalamin (Vitamin B-12) 1,000 mcg PO HS 11/18/22 11/18/22 [Vitamin B-12] Folic Acid 0.4 mg PO HS 11/18/22 11/18/22 Rosuvastatin [Crestor] 10 mg PO HS 11/18/22 11/18/22 Saw [place] 500 mg PO DAILY 11/18/22 11/18/22 Sennosides [Senokot] 8.6 mg PO BID 11/18/22 11/18/22 polyethylene glycoL 3350 [Miralax] 17 gm PO DAILY 11/18/22 11/18/22 Previous Rx's Medication Instructions Recorded Azithromycin [Zithromax] 500 mg PO DAILY 4 Days #4 tab 11/19/22 Cefdinir 300 mg PO Q12HR #8 cap 11/19/22 Allergies Allergy/AdvReac Type Severity Reaction Status Date / Time No Known Allergies Allergy Verified 11/20/22 08:38 Review of Systems ROS Statement: Those systems with pertinent positive or pertinent negative responses have been documented in the HPI. ROS Other: All systems not noted in ROS Statement are negative. Past Medical History Past Medical History: Diabetes Mellitus, Myocardial Infarction (SD), Osteoarthritis (OA), Prostate Disorder, Skin Disorder Additional Past Medical History / Comment(s): Neuropathy. Psoriasis., Last Myocardial Infarction Date:: 2020 History of Any Multi-Drug Resistant Organisms: None Reported Past Surgical History: Back Surgery, Bowel Resection, Heart Catheterization With Stent Additional Past Surgical History / Comment(s): Back surgery X3. Past Anesthesia/Blood Transfusion Reactions: No Reported Reaction Date of Last Stent Placement:: 2020 Past Psychological History: No Psychological Hx Reported Smoking Status: Never smoker Past Alcohol Use History: None Reported Past Drug Use History: None Reported - Past Family History Father Family Medical History: Cancer Additional Family Medical History / Comment(s): Colon Cancer. Brother(s) Family Medical History: Cancer Additional Family Medical History / Comment(s): Colon Cancer. General Exam - General Exam Comments Initial Comments: GENERAL: Patient is well-developed and well-nourished. Patient is nontoxic and well- hydrated and is in mild distress. ENT: Neck is soft and supple. No significant lymphadenopathy is noted. Oropharynx is clear. Moist mucous membranes. Neck has full range of motion without eliciting any pain. EYES: The sclera were anicteric and conjunctiva were pink and moist. Extraocular movements were intact and pupils were equal round and reactive to light. Eyelids were unremarkable. PULMONARY: Unlabored respirations. Good breath sounds bilaterally. No audible rales rhonchi or wheezing was noted. CARDIOVASCULAR: There is a regular rate and rhythm without any murmurs gallops or rubs. ABDOMEN: Soft and nontender with normal bowel sounds. SKIN: Skin is clear with no lesions or rashes and otherwise unremarkable. NEUROLOGIC: Patient is alert and oriented x3. Cranial nerves II through XII are grossly intact. Motor and sensory are also intact. Normal speech, volume and content. Symmetrical smile. MUSCULOSKELETAL: Normal extremities with adequate strength and full range of motion. LYMPHATICS: No significant lymphadenopathy is noted PSYCHIATRIC: Normal psychiatric evaluation. Limitations: no limitations Course Vital Signs 11/20/22 11/20/22 08:35 11:45 Temperature 98 F Pulse Rate 102 H 95 Respiratory 18 18 Rate Blood Pressure 128/60 154/76 O2 Sat by Pulse 98 97 Oximetry Medical Decision Making - Medical Decision Making EKG is interpreted by myself. EKG shows sinus rhythm at 90 bpm OK interval 170 QRS is under 26 QT interval 356 QTC is 412. Patient's EKG shows no ST segment elevation or depression. Was pt. sent in by a medical professional or institution (, PA, AIR TWISTER WINDER, urgent care, hospital, or half-way...) When possible be specific @ -No Did you speak to anyone other than the patient for history (EMS, parent, family, police, friend...)? What history was obtained from this source @ - gave all of the history Did you review nursing and triage notes (agree or disagree)? Why? @ -I reviewed and agree with nursing and triage notes Were old charts reviewed (outside hosp., previous admission, EMS record, old E KG, old radiological studies, urgent care reports/EKG's, half-way records)? Report findings @ -I reviewed prior charts in prior laboratory comes patient Differential Diagnosis (chest pain, altered mental status, abdominal pain women, abdominal pain men, vaginal bleeding, weakness, fever, dyspnea, syncope, headache, dizziness, GI bleed, back pain, seizure, CVA, palpatations, mental health, musculoskeletal)? @ -Differential Altered Mental Status: Hypoglycemia, DKA, hypercapnia, ETOH, overdose, CO poisoning, trauma, myxedema coma, HTN encephalopathy, infection, encephalitis, psychosis, intercranial hemorrhage, hepatic encephalopathy, meningitis, CVA, this is not meant to be an all-inclusive list EKG interpreted by me (3pts min.). @ -As above X-rays interpreted by me (1pt min.). @ -Chest x-ray shows no acute abnormality CT interpreted by me (1pt min.). @ -CT of the brain shows no acute abnormality U/S interpreted by me (1pt. min.). @ -None done What testing was considered but not performed or refused? (CT, X-rays, U/S, labs)? Why? @ -None What meds were considered but not given or refused? Why? @ -None Did you discuss the management of the patient with other professionals (pr ofessionals i.e. , PA, AIR TWISTER WINDER, lab, RT, psych nurse, social services specialist, car painter, teacher, aadc plans staff officer, shoe caser)? Give summary @ -I spoke with Dr. Vick she agreed to admit the patient admitted the patient wrote admitting orders Was smoking cessation discussed for >3mins.? @ -No Was critical care preformed (if so, how long)? @ -No Were there social determinants of health that impacted care today? How? (Homelessness, low income, unemployed, alcoholism, drug addiction, transportat ion, low edu. Level, literacy, decrease access to med. care, mcc, rehab)? @ -No Was there de-escalation of care discussed even if they declined (Discuss DNR or withdrawal of care, Hospice)? DNR status @ -No What co-morbidities impacted this encounter? (DM, HTN, Smoking, COPD, CAD, Cancer, CVA, ARF, Chemo, Hep., AIDS, mental health diagnosis, sleep apnea, morbid obesity)? @ -None Was patient admitted / discharged? Hospital course, mention meds given and route, prescriptions, significant lab abnormalities, going to OR and other pertinent info. @ -Patient's lab work was within normal range as was a computed tomography scan and chest x-ray. Spoke with Dr. Vick she agreed to admit the patient admitted the patient wrote admitting orders. I went back and spoke with the patient and the states he still delusional even in the emergency department. Undiagnosed new problem with uncertain prognosis? @ -No Drug Therapy requiring intensive monitoring for toxicity (Heparin, Nitro, Insulin, Cardizem)? @ -No Were any procedures done? @ -No Diagnosis/symptom? @ -Delusional Acute, or Chronic, or Acute on Chronic? @ -Acute Uncomplicated (without systemic symptoms) or Complicated (systemic symptoms)? @ -Complicated Side effects of treatment? @ -No Exacerbation, Progression, or Severe Exacerbation? @ -No Poses a threat to life or bodily function? How? (Chest pain, USA, SD, pneumonia, PE, COPD, DKA, ARF, appy, cholecystitis, CVA, Diverticulitis, Homicidal, Suicidal, threat to staff... and all critical care pts) @ -No - Lab Data Result diagrams: 11/20/22 09:01 11/20/22 09:01 Lab Results 11/20/22 11/20/22 11/20/22 Range/Units 09:01 09:01 09:01 WBC 7.0 (3.8-10.6) k/uL RBC 4.52 (4.30-5.90) m/uL Hgb 13.9 (13.0-17.5) gm/dL Hct 42.0 (39.0-53.0) % MCV 92.8 (80.0-100.0) fL MCH 30.7 (25.0-35.0) pg MCHC 33.1 (31.0-37.0) g/dL RDW 12.7 (11.5-15.5) % Plt Count 222 (150-450) k/uL MPV 8.2 Neutrophils % 76 % Lymphocytes % 14 % Monocytes % 6 % Eosinophils % 2 % Basophils % 0 % Neutrophils # 5.4 (1.3-7.7) k/uL Lymphocytes # 1.0 (1.0-4.8) k/uL Monocytes # 0.4 (0-1.0) k/uL Eosinophils # 0.2 (0-0.7) k/uL Basophils # 0.0 (0-0.2) k/uL PT 10.2 (9.0-12.0) sec INR 1.0 (<1.2) APTT 33.5 H (22.0-30.0) sec Sodium (137-145) mmol/L Potassium (3.5-5.1) mmol/L Chloride (98-107) mmol/L Carbon Dioxide (22-30) mmol/L Anion Gap mmol/L BUN (9-20) mg/dL Creatinine (0.66-1.25) mg/dL Est GFR (CKD-EPI)AfAm (>60 ml/min/1.73 sqM) Est GFR (CKD-EPI)NonAf (>60 ml/min/1.73 sqM) Glucose (74-99) mg/dL Calcium (8.4-10.2) mg/dL Total Bilirubin (0.2-1.3) mg/dL AST (17-59) U/L ALT (4-49) U/L Alkaline Phosphatase (38-126) U/L Troponin I (0.000-0.034) ng/mL Total Protein (6.3-8.2) g/dL Albumin (3.5-5.0) g/dL TSH (0.465-4.680) mIU/L Urine Color Yellow Urine Appearance Clear (Clear) Urine pH 5.0 (5.0-8.0) Ur Specific Edwards 1.013 (1.001-1.035) Urine Protein Trace H (Negative) Urine Glucose (UA) Negative (Negative) Urine Ketones Negative (Negative) Urine Blood Negative (Negative) Urine Nitrite Negative (Negative) Urine Bilirubin Negative (Negative) Urine Urobilinogen <2.0 (<2.0) mg/dL Ur Leukocyte Esterase Negative (Negative) Urine Opiates Screen Not Detected (NotDetected) Ur Oxycodone Screen Not Detected (NotDetected) Urine Methadone Screen Not Detected (NotDetected) Ur Propoxyphene Screen Not Detected (NotDetected) Ur Barbiturates Screen Not Detected (NotDetected) U Tricyclic Antidepress Not Detected (NotDetected) Ur Phencyclidine Scrn Not Detected (NotDetected) Ur Amphetamines Screen Not Detected (NotDetected) U Methamphetamines Scrn Not Detected (NotDetected) U Benzodiazepines Scrn Not Detected (NotDetected) Urine Cocaine Screen Not Detected (NotDetected) U Marijuana (THC) Screen Not Detected (NotDetected) 11/20/22 11/20/22 Range/Units 09:01 09:01 WBC (3.8-10.6) k/uL RBC (4.30-5.90) m/uL Hgb (13.0-17.5) gm/dL Hct (39.0-53.0) % MCV (80.0-100.0) fL MCH (25.0-35.0) pg MCHC (31.0-37.0) g/dL RDW (11.5-15.5) % Plt Count (150-450) k/uL MPV Neutrophils % % Lymphocytes % % Monocytes % % Eosinophils % % Basophils % % Neutrophils # (1.3-7.7) k/uL Lymphocytes # (1.0-4.8) k/uL Monocytes # (0-1.0) k/uL Eosinophils # (0-0.7) k/uL Basophils # (0-0.2) k/uL PT (9.0-12.0) sec INR (<1.2) APTT (22.0-30.0) sec Sodium 137 (137-145) mmol/L Potassium 4.5 (3.5-5.1) mmol/L Chloride 102 (98-107) mmol/L Carbon Dioxide 25 (22-30) mmol/L Anion Gap 10 mmol/L BUN 12 (9-20) mg/dL Creatinine 0.81 (0.66-1.25) mg/dL Est GFR (CKD-EPI)AfAm >90 (>60 ml/min/1.73 sqM) Est GFR (CKD-EPI)NonAf 79 (>60 ml/min/1.73 sqM) Glucose 213 H (74-99) mg/dL Calcium 9.3 (8.4-10.2) mg/dL Total Bilirubin 1.0 (0.2-1.3) mg/dL AST 36 (17-59) U/L ALT 20 (4-49) U/L Alkaline Phosphatase 60 (38-126) U/L Troponin I <0.012 (0.000-0.034) ng/mL Total Protein 7.2 (6.3-8.2) g/dL Albumin 3.9 (3.5-5.0) g/dL TSH 3.210 (0.465-4.680) mIU/L Urine Color Urine Appearance (Clear) Urine pH (5.0-8.0) Ur Specific Edwards (1.001-1.035) Urine Protein (Negative) Urine Glucose (UA) (Negative) Urine Ketones (Negative) Urine Blood (Negative) Urine Nitrite (Negative) Urine Bilirubin (Negative) Urine Urobilinogen (<2.0) mg/dL Ur Leukocyte Esterase (Negative) Urine Opiates Screen (NotDetected) Ur Oxycodone Screen (NotDetected) Urine Methadone Screen (NotDetected) Ur Propoxyphene Screen (NotDetected) Ur Barbiturates Screen (NotDetected) U Tricyclic Antidepress (NotDetected) Ur Phencyclidine Scrn (NotDetected) Ur Amphetamines Screen (NotDetected) U Methamphetamines Scrn (NotDetected) U Benzodiazepines Scrn (NotDetected) Urine Cocaine Screen (NotDetected) U Marijuana (THC) Screen (NotDetected) Disposition Clinical Impression: Delusional disorder Disposition: ADMITTED IP TO THIS [facility] Referrals: Kingston Thomas MD [Primary Care Provider] - 1-2 days Time of Disposition: 12:45
[2022-11-20 09:25] LABS: Basophils % (A) 0 %; Eosinophils # (A) 0.2 k/uL (0-0.7); Eosinophils % (A) 2 %; HGB 13.9 gm/dL (13.0-17.5); Lymphocytes % (A) 14 %; MCH 30.7 pg (25.0-35.0); MCHC 33.1 g/dL (31.0-37.0); MCV 92.8 fL (80.0-100.0); Mean Platelet Volume 8.2; Monocytes # (A) 0.4 k/uL (0-1.0); Monocytes % (A) 6 %; Neutrophils # (A) 5.4 k/uL (1.3-7.7); Neutrophils % (A) 76 %; Platelet Count 222 k/uL (150-450); RBC 4.52 m/uL (4.30-5.90); RDW 12.7 % (11.5-15.5)
[2022-11-20 09:41] LABS: ALT 20 U/L (4-49); African American GFR (CKD) >90 (>60 ml/min/1.73 sqM); Albumin 3.9 g/dL (3.5-5.0); Anion Gap 10 mmol/L; Blood Urea Nitrogen 12 mg/dL (9-20); Calcium 9.3 mg/dL (8.4-10.2); Carbon Dioxide 25 mmol/L (22-30); Chloride 102 mmol/L (98-107); Glucose 213 mg/dL (74-99); Non-African American GFR(CKD) 79 (>60 ml/min/1.73 sqM); Sodium 137 mmol/L (137-145); Total Protein 7.2 g/dL (6.3-8.2)
[2022-11-20 09:47] LABS: AST 36 U/L (17-59); Alkaline Phosphatase 60 U/L (38-126); Potassium 4.5 mmol/L (3.5-5.1)
[2022-11-20 09:53] LABS: Partial Thromboplastin Time 33.5 sec (22.0-30.0); Prothrombin Time 10.2 sec (9.0-12.0)
--- NOTE | 2022-11-20 10:58 | XR ---
EXAMINATION TYPE: XR chest 2V DATE OF EXAM: 11/20/2022 9:41 AM CLINICAL INDICATION:Male, 87 years old with history of altered mental status; [facility] COMPARISON: Chest x-ray 11/19/[address] 11/18/2022 TECHNIQUE: XR chest 2V Frontal and lateral views of the chest. FINDINGS: Study is somewhat limited by patient body habitus. Lines/Tubes: No indwelling lines are seen. EKG leads overlie the chest. Lungs/Pleura: Lung volumes are slightly low. Patchy opacities in the right midlung zone appear grossl y similar to previous. No clear-cut consolidations seen on the left, given exam limitations. No sizab le pleural effusion or evidence of pneumothorax. Pulmonary vascularity: Unremarkable. Heart/mediastinum: Stable cardiac silhouette, upper limits of normal in size. Partially calcified aor ta with mild tortuosity. Mediastinal contours appear within normal limits. Musculoskeletal: Mild degenerative changes without acute bony abnormality suggested. Partial eventrat ion along the right hemidiaphragm. No subdiaphragmatic free air is seen. Other findings: None IMPRESSION: Patchy opacities in the right midlung zone appear grossly similar to previous. No clear-cut consolida tions seen on the left, given exam limitations. Recommend continued follow-up to resolution.
--- NOTE | 2022-11-20 11:03 | CT ---
EXAMINATION TYPE: CT brain wo con CT DLP: 1100.4 mGycm, Automated exposure control for dose reduction was used. DATE OF EXAM: 11/20/2022 9:34 AM COMPARISON: CT head 12/29/2018. CLINICAL INDICATION:Male, 87 years old with history of Altered mental status, AMS/ hallucinations. TECHNIQUE: Brain: Axial CT images of the brain were obtained with coronal and sagittal reformats created and rev iewed. Contrast used: None. Oral contrast used: None. FINDINGS: Brain: Extra-axial spaces: No abnormal extra-axial fluid collections. Ventricular system: Mild dilatation in proportion to cerebral atrophy. Cerebral parenchyma: No acute intraparenchymal hemorrhage or mass effect. The glass-white junction is well differentiated. Mild/moderate generalized brain atrophy. Cerebellum: Unremarkable. Mass effect: No evidence of midline shift. Intracranial vasculature: A few calcifications noted of the larger arteries towards the skull base. Soft tissues: Normal. Calvarium/osseous structures: No depressed skull fracture. Paranasal sinuses and mastoid air cells: Clear. Visualized orbits: Orbital contents appear grossly intact. Radial densities associated with the anter ior globes consistent with prior ophthalmologic surgery. MRI may be considered for further evaluation if clinically warranted. IMPRESSION: 1. No acute intracranial CT abnormality. 2. Mild/moderate generalized brain atrophy.
[2022-11-20 11:58] LABS: Appearance,Urine Clear (Clear); Bilirubin,Urine Negative (Negative); Blood,Urine Negative (Negative); Color,Urine Yellow; Glucose,Urine (UA) Negative (Negative); Ketones,Urine Negative (Negative); Leukocyte Esterase,Urine Negative (Negative); Nitrite,Urine Negative (Negative); Protein,Urine Trace (Negative); Specific Gravity,Urine 1.013 (1.001-1.035); Urobilinogen,Urine <2.0 mg/dL (<2.0)
[2022-11-20 12:07] LABS: Amphetamine Screen,Urine Not Detected (NotDetected); Barbiturate Screen,Urine Not Detected (NotDetected); Benzodiazepines Screen,Urine Not Detected (NotDetected); Cocaine Screen,Urine Not Detected (NotDetected); Methadone Screen, Urine Not Detected (NotDetected); Opiate Screen,Urine Not Detected (NotDetected); Oxycodone Screen, Urine Not Detected (NotDetected); Phencyclidine Screen,Urine Not Detected (NotDetected); Tricyclic Antidepressant,Urine Not Detected (NotDetected); Urn Cannabinoid Scrn Not Detected (NotDetected)
[2022-11-20] MEDS ORDERED: SODIUM CHLORIDE 0.9% 1,000 ML IV ONE (12:45)
[2022-11-20] MEDS ORDERED: ACETAMINOPHEN TAB 325 MG TAB PO PRN (15:56)
[2022-11-20] MEDS ORDERED: NALOXONE 0.4 MG/ML 1 ML VIAL IV PRN (15:56)
[2022-11-20] MEDS ORDERED: NITROGLYCERIN SL TABS 0.4 MG TAB SUBLINGUAL PRN (15:57)
--- NOTE | 2022-11-20 16:03 | P.HPIM ---
History of Present Illness H&P Date: 11/20/22 Chief Complaint: halluciations Patient is a 87-year-old male recently admitted here from 11/18 through 11/19 for pneumonia who re-presented and with hallucinations. Patient had been discharged home the day prior and at that time was doing well. On arrival to the ER he was noted to be slightly tachycardic with a pulse of 102. Laboratory analysis included CBC, coagulation studies, BMP, liver enzymes, troponin, TSH, urinalysis, and urine drug screen. They were remarkable for glucose of 213, urine was trace proteins. CT head demonstrated no acute intracranial abnormality with mild to moderate generalized brain atrophy. Chest x-ray right demonstrated patchy opacities in the right midlung zone similar to previous exam. He is given a liter of IV fluids in the ER. He continued to have visual hallucinations. Arrangements were made for observation. Patient seen and examined at bedside. is present at bedside and does most of the history gathering. She reports that yesterday after discharge he was doing well, he ate dinner. Then at night became confused and was seeing things and people that were not there. He was confusing the craters with trains. This is all very unusual behavior for him. She was concerned that it was a reaction to the antibiotic and therefore with a represented to the ER. Vital signs reviewed General: nontoxic, no distress, appears at stated age Derm: warm, dry Eyes: EOMI, no lid lag, anicteric sclera, pupils equal round reactive to light ENT: Nose and ears atraumatic, no thrush, no pharyngeal erythema Cardiovascular: S1S2 reg, no murmur, positive posterior tibial pulse bilateral, no edema, capillary refill less than 2 seconds Lungs: clear to auscultation bilateral, no rhonchi, no rales, no wheeze, no accessory muscle use Abdominal: soft, nontender to palpation, no guarding, no appreciable organo megaly, normal bowel sounds Ext: no gross muscle atrophy, muscle strength 5 out of 5 in all 4 extremities, no contractures Neuro: CN II-XII grossly intact, light touch intact all 4 extremities, finger to nose within normal limits, Psych: Alert, oriented, appropriate affect Assessment/Plan: Hallucinations - suspect due to PNA vs underlying memory impairment, less likely medication side effect - safe and supportive environment, melatonin 3 mg tonight, change back to rocephin - check PVR as patient has chronic urinary symptoms - Resume cymbalta Pneumonia, community acquired, non complications Dizziness - rocephine 2 grams q 24 hours IVPB - completed zithromax - check orthostatic vitals - CXR in 2 weeks Diabetes mellitus type 2 with neuropathy -Hold metformin -Sliding-scale insulin -Follow blood sugars Chronic: Coronary artery disease Prostate disorder Imaging: As Per HPI Data Review: Per HPI The patient is admitted with an anticipated less than 2 midnight stay for evaluation of hallucinations. Surrogate decision-maker: CODE STATUS:full Anticipated discharge date: in AM Anticipated discharge place: home This dictation was prepared using [employer] voice recognition software. Though every attempt is made to correct errors during dictation some may still exist. Past Medical History Past Medical History: Diabetes Mellitus, Myocardial Infarction (VT), Osteoarthritis (OA), Prostate Disorder, Skin Disorder Additional Past Medical History / Comment(s): Neuropathy. Psoriasis., Last Myocardial Infarction Date:: 2020 History of Any Multi-Drug Resistant Organisms: None Reported Past Surgical History: Back Surgery, Bowel Resection, Heart Catheterization With Stent Additional Past Surgical History / Comment(s): Back surgery X3. Past Anesthesia/Blood Transfusion Reactions: No Reported Reaction Date of Last Stent Placement:: 2020 Smoking Status: Never smoker - Past Family History Father Family Medical History: Cancer Additional Family Medical History / Comment(s): Colon Cancer. Brother(s) Family Medical History: Cancer Additional Family Medical History / Comment(s): Colon Cancer. Medications and Allergies Home Medications Medication Instructions Recorded Confirmed Type Tamsulosin HCl [Flomax] 0.4 mg PO HS 10/06/13 11/20/22 History metFORMIN HCL [Glucophage] 500 mg PO BID 10/06/13 11/20/22 History Dutasteride [Avodart] 0.5 mg PO HS 07/15/16 11/20/22 History DULoxetine HCL [Cymbalta] 30 mg PO HS 12/24/19 11/20/22 History Aspirin EC [Ecotrin Low Dose] 81 mg PO DAILY 08/28/20 11/20/22 History Cholecalciferol [Vitamin D3 (25 25 mcg PO DAILY 08/28/20 11/20/22 History Mcg = 1000 Iu)] Docusate [Colace] 100 mg PO HS 08/28/20 11/20/22 History Magnesium Oxide [Escalona] 500 mg PO DAILY 08/28/20 11/20/22 History Metoprolol Tartrate [Lopressor] 12.5 mg PO BID 08/28/20 11/20/22 History Nitroglycerin Sl Tabs [Nitrostat] 0.4 mg SUBLINGUAL Q5M PRN 08/28/20 11/20/22 H istory Vitamin K2 100 mcg PO DAILY 08/28/20 11/20/22 History Zinc 50 mg PO DAILY 08/28/20 11/20/22 History Cyanocobalamin (Vitamin B-12) 1,000 mcg PO HS 11/18/22 11/20/22 History [Vitamin B-12] Folic Acid 0.4 mg PO HS 11/18/22 11/20/22 History Rosuvastatin [Crestor] 10 mg PO HS 11/18/22 11/20/22 History Saw [place] 500 mg PO DAILY 11/18/22 11/20/22 History Sennosides [Senokot] 8.6 mg PO BID 11/18/22 11/20/22 History polyethylene glycoL 3350 [Miralax] 17 gm PO DAILY 11/18/22 11/20/22 History Azithromycin [Zithromax] 500 mg PO DAILY 4 Days #4 tab 11/19/22 11/20/22 Rx Cefdinir 300 mg PO Q12HR #8 cap 11/19/22 11/20/22 Rx Allergies Allergy/AdvReac Type Severity Reaction Status Date / Time No Known Allergies Allergy Verified 11/20/22 12:48 Physical Exam Osteopathic Statement: *. No significant issues noted on an osteopathic structural exam other than those noted in the History and Physical/Consult. Vitals: Vital Signs Temp Pulse Pulse Resp BP BP Pulse Ox 11/20/22 14:00 86 16 123/54 95 11/20/22 11:45 95 18 154/76 97 11/20/22 08:35 98 F 102 H 18 128/60 98 Intake and Output 11/20/22 11/20/22 11/20/22 06:59 14:59 22:59 Other: Weight 84.368 kg Results CBC & Chem 7: 11/20/22 09:01 11/20/22 09:01 Labs: Abnormal Lab Results - Last 24 Hours (Table) 10/09/0511/20/22 11/20/22 Range/Units 09:01 09:01 09:01 APTT 33.5 H (22.0-30.0) sec Glucose 213 H (74-99) mg/dL Urine Protein Trace H (Negative) Thrombosis Risk Factor Assmnt - Choose All That Apply Any of the Below Risk Factors Present?: Yes Other Risk Factors: Yes Each Risk Factor Represents 3 Points: Age 75 years or older Other congenital or acquired thrombophilia - If yes, enter type in comment: Yes Thrombosis Risk Factor Assessment Total Risk Factor Score: 3 Thrombosis Risk Factor Assessment Level: Moderate Risk
[2022-11-20 16:37] LABS: Glucose,Whole Blood 134 mg/dL (70-110)
[2022-11-20] MEDS: ATORVASTATIN 20 MG TAB PO SCH (20:36)
[2022-11-20] MEDS: DULoxetine HCL 30 MG CAPSULE.DR PO SCH (20:37)
[2022-11-20] MEDS: DOCUSATE 100 MG CAP PO SCH (20:37)
[2022-11-20] MEDS: CYANOCOBALAMIN 500 MCG TAB PO SCH (20:37)
[2022-11-20] MEDS: FINASTERIDE 5 MG TAB PO SCH (20:37)
[2022-11-20] MEDS: FOLIC ACID 1 MG TAB PO SCH (20:37)
[2022-11-20] MEDS: METOPROLOL TARTRATE 12.5 MG TAB PO SCH (20:38)
[2022-11-20] MEDS: SENNOSIDES 8.6 MG TAB PO SCH (20:38)
[2022-11-20] MEDS: MELATONIN 3 MG TABLET PO SCH (20:38)
[2022-11-20] MEDS: TAMSULOSIN 0.4 MG CAP.ER.24H PO SCH (20:38)
[2022-11-20 21:31] LABS: Glucose,Whole Blood 115 mg/dL (70-110)
[2022-11-21] MEDS ORDERED: ALPRAZolam 0.5 MG TAB PO STA (00:29)
[2022-11-21 06:02] LABS: HCT 35.7 % (39.0-53.0); HGB 12.3 gm/dL (13.0-17.5); MCH 31.8 pg (25.0-35.0); MCHC 34.4 g/dL (31.0-37.0); MCV 92.4 fL (80.0-100.0); Mean Platelet Volume 7.8; Platelet Count 221 k/uL (150-450); RBC 3.86 m/uL (4.30-5.90); RDW 12.8 % (11.5-15.5); WBC 5.4 k/uL (3.8-10.6)
[2022-11-21 06:11] LABS: ALT 17 U/L (4-49); AST 28 U/L (17-59); African American GFR (CKD) >90 (>60 ml/min/1.73 sqM); Albumin 2.8 g/dL (3.5-5.0); Albumin/Globulin Ratio 1.2; Alkaline Phosphatase 53 U/L (38-126); Anion Gap 5 mmol/L; Blood Urea Nitrogen 9 mg/dL (9-20); Calcium 8.6 mg/dL (8.4-10.2); Carbon Dioxide 26 mmol/L (22-30); Chloride 107 mmol/L (98-107); Globulin 2.3 g/dL; Glucose 120 mg/dL (74-99); Non-African American GFR(CKD) 82 (>60 ml/min/1.73 sqM); Potassium 3.7 mmol/L (3.5-5.1); Sodium 138 mmol/L (137-145); Total Bilirubin 0.5 mg/dL (0.2-1.3); Total Protein 5.1 g/dL (6.3-8.2)
[2022-11-21 06:26] LABS: Glucose,Whole Blood 119 mg/dL (70-110)
[2022-11-21] MEDS ORDERED: NON FORMULARY DRUG (Saw Palmetto [Saw Palmetto] 500 MG Capsule) PO SCH (09:00)
--- NOTE | 2022-11-21 11:08 | P.CN ---
Psychiatric Consult - . 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 Per chart, patient was recently discharged for pneumonia and was doing well at home on day of discharge. After dinner, he started having visual hallucinations and delusions which is unusual for him. Patient was sleeping at time of interview. Per request from family, patient was not woken up. Child Development Teacher spoke with family. At baseline, patient is physically active, although he has mentally slightly slowed down for about the past year. Overall, he is quite high functioning and has good memory. He is not retired and continues to work. After he received his dose of antibiotic on day of discharge at home, he began having hallucinations. He saw women in long gowns and BDI's. He also thought that they lived on street which is not where they live. He also thought that they lifted underwater at times. He also had delusions, including thinking that the bed was his car and craters were trains. This worsened over time and he would not calm down. These behaviors have never occurred before. He has had no hallucinations since being in the hospital. Of note, patient had not slept for 3 days prior to this. 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, very active physically, lives with his family MENTAL STATUS EXAM: General Appearance: Patient appears to be 87-year-old male who appears older than stated age, currently sleeping Behavior: Sleeping Speech: Not assessed as patient was sleeping Mood/Affect: Not assessed as patient was sleeping Suicidality/Homicidality: Could not assess as patient was sleeping Perceptions: Currently not responding to internal stimuli Though content/process: Could not assess as patient was sleeping Memory and concentration: Could not assess as patient was sleeping Judgment and insight: [poor] IMPRESSIONS: These hallucinations are likely due to the underlying pneumonia. Once the pneumonia is treated, the psychosis will resolve. A less likely cause is lack of sleep. Moreover, based on history obtained from family, patient most likely does not have dementia PLAN: -Continue to treat underlying PNA -May do seroquel 25 mg tid prn for severe psychosis -avoiding use of narcotics and PENSIONHOLDER INFORMATION CLERK sedatives, limit anticholinergic medications when possible, frequent re-orientation, minimize use of restraints -psychiatry will sign off 11/21/22 10:59
[2022-11-21] MEDS: polyethylene glycoL 3350 17 GM POWD.PACK PO SCH (12:37)
[2022-11-21] MEDS: SENNOSIDES 8.6 MG TAB PO SCH ×2 (12:37→20:05)
[2022-11-21] MEDS: ZINC SULFATE 220 MG CAP PO SCH (12:37)
[2022-11-21] MEDS: MAGNESIUM OXIDE 400 MG TAB PO SCH (12:37)
[2022-11-21] MEDS: CHOLECALCIFEROL 25 MCG (1000 IU) TABLET PO SCH (12:37)
[2022-11-21] MEDS: METOPROLOL TARTRATE 12.5 MG TAB PO SCH ×2 (12:37→20:05)
[2022-11-21] MEDS: ASPIRIN 81 MG PO SCH (12:38)
[2022-11-21] MEDS: VITAMIN K2 100 MCG PO SCH (12:39)
[2022-11-21 12:51] LABS: Glucose,Whole Blood 139 mg/dL (70-110)
[2022-11-21 17:45] LABS: Glucose,Whole Blood 125 mg/dL (70-110)
--- NOTE | 2022-11-21 18:07 | P.PN ---
Subjective Progress Note Date: 11/21/22 (delayed charting seen at 10am) Patient is a 87-year-old male recently admitted here from 11/18 through 11/19 for pneumonia who re-presented and with hallucinations. Patient had been discharged home the day prior and at that time was doing well. On arrival to the ER he was noted to be slightly tachycardic with a pulse of 102. Laboratory analysis included CBC, coagulation studies, BMP, liver enzymes, troponin, TSH, urinalysis, and urine drug screen. They were remarkable for glucose of 213, urine was trace proteins. CT head demonstrated no acute intracranial abnormality with mild to moderate generalized brain atrophy. Chest x-ray right demonstrated patchy opacities in the right midlung zone similar to previous exam. He is given a liter of IV fluids in the ER. He continued to have visual hallucinations. Arrangements were made for observation. He again had hallucinations and disturbances overnight on 11/20 to 11/21. Patient seen and examined at bedside. He is sleeping and family does not want me to disturbe him. I Spoke to his and daughters. For the last several weeks it has didn't help him with some reorientation issues though they do not believe he has signi ficant underlying dementia. He has been functioning well. His has been doing all the finances, coronary The doctor's appointment, and I'll this for quite some time. This does tell me that there was some concerns in that she has taken on these responsibilities. We discussed the possibility of some underlying minor dementia that has been exacerbated by pneumonia. Vital signs reviewed General: nontoxic, no distress, appears at stated age Cardiovascular: S1S2 reg, no murmur, positive posterior tibial pulse bilateral, Lungs: CTA bilateral, no rhonchi, no rales , no accessory muscle use Assessment/Plan: Hallucinations - suspect due to PNA in conjunction with mild underlying memory impairment - Rocephin 1 more dose tomorrow to complete treatment for PNA - Melatonin 3 mg tonight, add seroquel 12.5 mg PO HS - safe and supportive environment, melatonin 3 mg tonight, change back to rocephin Pneumonia, community acquired, non complications Dizziness - rocephin 2 grams q 24 hours IVPB - completed zithromax - check orthostatic vitals - CXR in 2 weeks Diabetes mellitus type 2 with neuropathy -Hold metformin -Sliding-scale insulin -Follow blood sugars Chronic: Coronary artery disease Prostate disorder Imaging: None new Data Review: Labs reviewed from today include CBC, basic metabolic profile, blood sugars, AST, ALT, and ammonia levels. There are remarkable for hemoglobin of 12.3, hematocrit 35.7, and blood sugar of 120. DVT prophylaxis: Lovenox Anticipated discharge date: in 24-[address]: home This dictation was prepared using [employer] voice recognition software. Though every attempt is made to correct errors during dictation some may still exist. Objective - Vital Signs Vital signs: Vital Signs Temp 97.6 F 11/21/22 13:43 Pulse 54 L 11/21/22 13:43 Resp 16 11/21/22 13:43 BP 107/66 11/21/22 13:43 Pulse Ox 98 11/21/22 13:43 FiO2 Intake & Output 11/20/22 11/21/22 11/21/22 18:59 06:59 18:59 Weight 84.368 kg Other: Voiding Method Toilet # Voids 1 2 - Labs CBC & Chem 7: 11/21/22 05:30 11/21/22 05:30 Labs: Abnormal Lab Results - Last 24 Hours (Table) 11/20/22 11/21/22 11/21/22 Range/Units 21:30 05:30 05:30 RBC 3.86 L (4.30-5.90) m/uL Hgb 12.3 L (13.0-17.5) gm/dL Hct 35.7 L (39.0-53.0) % Glucose 120 H (74-99) mg/dL POC Glucose (mg/dL) 115 H (70-110) mg/dL Total Protein 5.1 L (6.3-8.2) g/dL Albumin 2.8 L (3.5-5.0) g/dL 11/21/22 11/21/22 11/21/22 Range/Units 06:25 12:49 17:43 RBC (4.30-5.90) m/uL Hgb (13.0-17.5) gm/dL Hct (39.0-53.0) % Glucose (74-99) mg/dL POC Glucose (mg/dL) 119 H 139 H 125 H (70-110) mg/dL Total Protein (6.3-8.2) g/dL Albumin (3.5-5.0) g/dL
[2022-11-21] MEDS ORDERED: QUEtiapine 25 MG TAB PO SCH (20:00)
[2022-11-21] MEDS: CYANOCOBALAMIN 500 MCG TAB PO SCH (20:04)
[2022-11-21] MEDS: ATORVASTATIN 20 MG TAB PO SCH (20:04)
[2022-11-21] MEDS: DOCUSATE 100 MG CAP PO SCH (20:04)
[2022-11-21] MEDS: FINASTERIDE 5 MG TAB PO SCH (20:05)
[2022-11-21] MEDS: MELATONIN 3 MG TABLET PO SCH (20:05)
[2022-11-21] MEDS: FOLIC ACID 1 MG TAB PO SCH (20:05)
[2022-11-21] MEDS: TAMSULOSIN 0.4 MG CAP.ER.24H PO SCH (20:06)
[2022-11-21] MEDS: DULoxetine HCL 30 MG CAPSULE.DR PO SCH (20:09)
[2022-11-21 21:02] LABS: Glucose,Whole Blood 162 mg/dL (70-110)
[2022-11-22 06:28] LABS: Glucose,Whole Blood 114 mg/dL (70-110)
[2022-11-22] MEDS: METOPROLOL TARTRATE 12.5 MG TAB PO SCH (08:19)
[2022-11-22] MEDS: ZINC SULFATE 220 MG CAP PO SCH (08:19)
[2022-11-22] MEDS: MAGNESIUM OXIDE 400 MG TAB PO SCH (08:19)
[2022-11-22] MEDS: polyethylene glycoL 3350 17 GM POWD.PACK PO SCH (08:19)
[2022-11-22] MEDS: SENNOSIDES 8.6 MG TAB PO SCH (08:19)
[2022-11-22] MEDS: ASPIRIN 81 MG PO SCH (08:19)
[2022-11-22] MEDS: CHOLECALCIFEROL 25 MCG (1000 IU) TABLET PO SCH (08:19)
[2022-11-22] MEDS: VITAMIN K2 100 MCG PO SCH (08:28)
[2022-11-22 11:14] LABS: Glucose,Whole Blood 145 mg/dL (70-110)
--- NOTE | 2022-11-22 13:16 | CDI ---
Documentation Clarification Form Date: 11/22/2022 12:57:02 PM From: Yanique Grimes RN CCDS Phone: [phone] Admit Date: 11/20/2022 12:45:00 PM Patient Name: Giancarlo Costa Visit Number: [id number] Discharge Date: ATTENTION: The Clinical Documentation Specialists (CDI) and [facility] Coding Staff appreciate your assistance in clarifying documentation. Please respond to the clarification below the line at the bottom and electronically sign. The CDI & [facility] Coding staff will review the response and follow-up if needed. Please note: Queries are made part of the Legal Health Record. If you have any questions, please contact the author of this message via ITS. Dr. Allison Vick Your patient has the documented symptom of Hallucinations 11/20, H&P. Additional clarification regarding the etiology/cause of this symptom is requested. History/Risk Factors:87-year-old male was admitted 11/18 11/19 for pneumonia, he was discharged doing well then in the evening became confused seeing things and people that were not there. The patient re-presented to the ED with hallucinations. Medical History: DM, CAD and prostate disorder. 11/20, H&P. Clinical Indicators: Labs, 11/20: Wbc 7.0; Glucose 213 CXR, 11/20: Patchy opacities in the right midlung zone appear grossly similar to previous. CT, Brain: Mild to moderate generalized brain atrophy, no acute intracranial CT abnormality. Psychiatric consult, 11/21: Hallucinations are likely due to the underlying pneumonia. Once the pneumonia is treated, the psychosis will resolve. Continue to treat underlying PNA. Treatment:11/20 Ceftriaxone 2gm IVPB X 1; 11/21 Ceftriaxone 2gm IVPB Q24H; 11/21 Psychiatric Consult (see above). Please clarify the etiology of the symptom of Hallucinations : [ X ] Metabolic Encephalopathy due to pneumonia [ ] Delirium (specify cause): [ ] Other condition (please specify) [ ] Unable to determine (Template Last Revised: March 2020) MTDD
[2022-11-22 14:45] VITALS: BP 125/69; PULSE 66; RESP 17; TEMP 97.8
--- NOTE | 2022-11-22 15:01 | P.DS ---
Providers Date of admission: 11/20/22 12:45 Attending physician: Allison Vick DO Consults: 11/21/22 08:22 Consult Physician Routine Consulting Provider: Marshall Sanchez Reason/Comments: hallucinations Do you want consulting provider notified?: Yes Primary care physician: Kingston Thomas MD Hospital Course: Discharge Diagnosis: Toxic metabolic encepahloapthy, with hallucinations Community-acquired pneumonia, right upper lobe- completed antibiotics Chest pain, non cardiac Diabetes mellitus type 2 with neuropathy Coronary artery disease Prostate disorder Hospital Course: Patient is a 87-year-old male recently admitted here from 11/18 through 11/19 for pneumonia who re-presented and with hallucinations. Patient had been discharged home the day prior and at that time was doing well. On arrival to the ER he was noted to be slightly tachycardic with a pulse of 102. Laboratory analysis included CBC, coagulation studies, BMP, liver enzymes, troponin, TSH, urinalysis, and urine drug screen. They were remarkable for glucose of 213, urine was trace proteins. CT head demonstrated no acute intracranial abnormality with mild to moderate generalized brain atrophy. Chest x-ray right demonstrated patchy opacities in the right midlung zone similar to previous exam. He is given a liter of IV fluids in the ER. He continued to have visual hallucinations. Arrangements were made for observation. He again had hallucinations and disturbances overnight on 11/20 to 11/21. He was seen by [facility] who felt these were relateed to PNA. I feel that patient likelt has underling mild memory impairment that was worsening by PNA, multiple trips to the hospital and sleep deperivation. He was started on seroquel on 11/21/22 adn did well.His mentation improved and he was not longer hallucinating. He was determined stable for discharge home. Follow-up Dr. Thomas in 2 days, Dr. Red next week, Seroqule 12.5 mg at home night for the next several night and them may be able to disconitnue, repeat CXR in 2 weeks to ensure clearance of PNA. Patient seen and examined at bedside.DOing well remembers that he has been having chest pain and thats why he came to the hospital and that we found a PNA, unsure of year, no other complaints. Wifee at bedside and she feels comfortable taking him erich. Vital signs reviewed and stable. General: nontoxic, no distress, appears at stated age Cardiovascular: S1S2 reg, no murmur, positive posterior tibial pulse bilateral, Lungs: Decreased bs bilateral, no rhonchi, no rales , no accessory muscle use Abdominal: soft, nontender to palpation, no guarding, no appreciable organomegaly Ext: no gross muscle atrophy, no edema b/l lower extremities, no contractures Neuro: CN II-XI grossly intact, no focal neuro deficits Psych: Alert, oriented X 2, appropriate affect A total of 35 minutes of time were spent preparing this complex discharge summary. Patient was discharged on 11/22/22. This dictation was prepared using [employer] voice recognition software. Though every attempt is made to correct errors during dictation some may still exist. Patient Condition at Discharge: Stable Plan - Discharge Summary New Discharge Prescriptions: New Melatonin 3 mg PO HS tab QUEtiapine [SEROquel] 12.5 mg PO HS@2000 #15 tab Continue metFORMIN HCL [Glucophage] 500 mg PO BID Tamsulosin HCl [Flomax] 0.4 mg PO HS Dutasteride [Avodart] 0.5 mg PO HS DULoxetine HCL [Cymbalta] 30 mg PO HS Nitroglycerin Sl Tabs [Nitrostat] 0.4 mg SUBLINGUAL Q5M PRN PRN Reason: Chest Pain Zinc 50 mg PO DAILY Docusate [Colace] 100 mg PO HS Metoprolol Tartrate [Lopressor] 12.5 mg PO BID Magnesium Oxide [Escalona] 500 mg PO DAILY Cholecalciferol [Vitamin D3 (25 Mcg = 1000 Iu)] 25 mcg PO DAILY Aspirin EC [Ecotrin Low Dose] 81 mg PO DAILY Folic Acid 0.4 mg PO HS Cyanocobalamin (Vitamin B-12) [Vitamin B-12] 1,000 mcg PO HS polyethylene glycoL 3350 [Miralax] 17 gm PO DAILY Sennosides [Senokot] 8.6 mg PO BID Rosuvastatin [Crestor] 10 mg PO HS Vitamin K2 100 mcg PO DAILY [place] 500 mg PO DAILY Discontinued Cefdinir 300 mg PO Q12HR #8 cap Azithromycin [Zithromax] 500 mg PO DAILY 4 Days #4 tab Discharge Medication List Tamsulosin HCl [Flomax] 0.4 mg PO HS 10/06/13 [History] metFORMIN HCL [Glucophage] 500 mg PO BID 10/06/13 [History] Dutasteride [Avodart] 0.5 mg PO HS 07/15/16 [History] DULoxetine HCL [Cymbalta] 30 mg PO HS 12/24/19 [History] Aspirin EC [Ecotrin Low Dose] 81 mg PO DAILY 08/28/20 [History] Cholecalciferol [Vitamin D3 (25 Mcg = 1000 Iu)] 25 mcg PO DAILY 08/28/20 [History] Docusate [Colace] 100 mg PO HS 08/28/20 [History] Magnesium Oxide [Escal[place]] 500 mg PO DAILY 08/28/20 [History] Metoprolol Tartrate [Lopressor] 12.5 mg PO BID 08/28/20 [History] Nitroglycerin Sl Tabs [Nitrostat] 0.4 mg SUBLINGUAL Q5M PRN 08/28/20 [History] Vitamin K2 100 mcg PO DAILY 08/28/20 [History] Zinc 50 mg PO DAILY 08/28/20 [History] Cyanocobalamin (Vitamin B-12) [Vitamin B-12] 1,000 mcg PO HS 11/18/22 [History] Folic Acid 0.4 mg PO HS 11/18/22 [History] Rosuvastatin [Crestor] 10 mg PO HS 11/18/22 [History] [place] 500 mg PO DAILY 11/18/22 [History] Sennosides [Senokot] 8.6 mg PO BID 11/18/22 [History] polyethylene glycoL 3350 [Miralax] 17 gm PO DAILY 11/18/22 [History] Melatonin 3 mg PO HS tab 11/22/22 [Rx] QUEtiapine [SEROquel] 12.5 mg PO HS@2000 #15 tab 11/22/22 [Rx] Follow up Appointment(s)/Referral(s): Kingston Thomas MD [Primary Care Provider] - 1-2 days Activity/Diet/Wound Care/Special Instructions: Activity: As tolerated Diet: Regular Special Instructions: Recommend repeat chest x-ray in 10-14 days You should take the next week off to recuperate. Take seroquel at night, no driving or operating heavy machinery when starting this medication as it can be sedating. Thank you for trusting us with your care, we wish you well on your journey to better health. Discharge Disposition: HOME SELF-CARE
== END 2022-11-22 15:53 | disposition home or self-care (01) | DRG 193 ==
LOC: EC 08:34 → 4SSUR 12:45
PROVIDERS: ADMIT Internal Medicine; ATTEND Internal Medicine
DX: J18.9 Pneumonia, unspecified organism (principal); G93.41 Metabolic encephalopathy; I25.10 Atherosclerotic heart disease of native coronary artery without angina pectoris; F22 Delusional disorders; I25.2 Old myocardial infarction; M19.90 Unspecified osteoarthritis, unspecified site; E11.42 Type 2 diabetes mellitus with diabetic polyneuropathy; R07.89 Other chest pain; N42.9 Disorder of prostate, unspecified; Z79.82 Long term (current) use of aspirin; Z79.84 Long term (current) use of oral hypoglycemic drugs
CPT/HCPCS: 36415; 70450; 71046; 80053; 80306; 81003; 82140; 84443; 84484; 85025; 85027; 85610; 85730; 93005; 94760; 96360; 99285

== ENCOUNTER → 2022-12-01 | Outpatient (CLI) | payer MEDICARE ==
--- NOTE | 2022-12-01 12:41 | XR ---
EXAMINATION TYPE: XR chest 2V DATE OF EXAM: 12/01/2022 COMPARISON: 11/20/2022 TECHNIQUE: PA and lateral views submitted. HISTORY: Weakness FINDINGS: The lungs are clear and there is no pneumothorax, pleural effusion, or focal pneumonia. Heart size normal and no overt failure. Osseous structures demonstrate hypertrophic and degenerative changes of the spine. Atherosclerotic change with tortuosity aorta. Vague nodular densities in the right mid vicky g laterally. Limited inspiration with elevated right hemidiaphragm. IMPRESSION: 1. Vague ill-defined right midlung nodular infiltrate could be in the basis of early pneumonia. Follo w-up to resolution to exclude neoplasm..
== END | disposition home or self-care (01) ==
LOC: RADXRWHC 12:13
PROVIDERS: ATTEND Family Medicine
DX: J18.9 Pneumonia, unspecified organism (principal); R53.81 Other malaise; R91.8 Other nonspecific abnormal finding of lung field
CPT/HCPCS: 71046

== ENCOUNTER 2022-12-14 09:45 | Emergency (ER) | payer MEDICARE ==
[2022-12-14] MEDS ORDERED: SODIUM CHLORIDE 0.9% 1,000 ML IV STA (10:12)
[2022-12-14] MEDS ORDERED: MECLIZINE 12.5 MG TAB PO STA ×2 (10:12→13:51)
--- NOTE | 2022-12-14 10:29 | ED ---
Dizziness HPI - General Chief Complaint: Dizziness Stated Complaint: Dizziness Time Seen by Provider: 12/14/22 09:59 Source: patient, RN notes reviewed Mode of arrival: ambulatory Limitations: no limitations - History of Present Illness Initial Comments: This is an 87-year-old male who presents to the emergency department for dizziness. His states that he went to use the restroom around 5 am, and felt like he was going to fall over as a result of dizziness and having difficulty with his balance. When he got into bed, symptoms seemed to subside. However whenever he would try to get up or move around, the dizziness returned. He does report a room spinning sensation, and states "it's going around and around". Denies any chest pain or shortness of breath. Also denies any nausea or vomiting. His states that he does have a history of vertigo a couple of years ago, and symptoms were similar, however they did not seem as severe. Rufus tionally, she believes that he is very dehydrated. He has problems with constipation and has been having laxatives very frequently, and he is not drinking as much water as he should. Patient was also just discharged from here later this month, at which time he was diagnosed with pneumonia, and she is also worried that that may be contributing to this. MD Complaint: dizziness - Related Data Home Medications Medication Instructions Recorded Confirmed Tamsulosin HCl [Flomax] 0.4 mg PO HS 10/06/13 11/20/22 metFORMIN HCL [Glucophage] 500 mg PO BID 10/06/13 11/20/22 Dutasteride [Avodart] 0.5 mg PO HS 07/15/16 11/20/22 DULoxetine HCL [Cymbalta] 30 mg PO HS 12/24/19 11/20/22 Aspirin EC [Ecotrin Low Dose] 81 mg PO DAILY 08/28/20 11/20/22 Cholecalciferol [Vitamin D3 (25 25 mcg PO DAILY 08/28/20 11/20/22 Mcg = 1000 Iu)] Docusate [Colace] 100 mg PO HS 08/28/20 11/20/22 Magnesium Oxide [Escalona] 500 mg PO DAILY 08/28/20 11/20/22 Metoprolol Tartrate [Lopressor] 12.5 mg PO BID 08/28/20 11/20/22 Nitroglycerin Sl Tabs [Nitrostat] 0.4 mg SUBLINGUAL Q5M PRN 08/28/20 11/20/22 Vitamin K2 100 mcg PO DAILY 08/28/20 11/20/22 Zinc 50 mg PO DAILY 08/28/20 11/20/22 Cyanocobalamin (Vitamin B-12) 1,000 mcg PO HS 11/18/22 11/20/22 [Vitamin B-12] Folic Acid 0.4 mg PO HS 11/18/22 11/20/22 Rosuvastatin [Crestor] 10 mg PO HS 11/18/22 11/20/22 [place] 500 mg PO DAILY 11/18/22 11/20/22 Sennosides [Senokot] 8.6 mg PO BID 11/18/22 11/20/22 polyethylene glycoL 3350 [Miralax] 17 gm PO DAILY 11/18/22 11/20/22 Previous Rx's Medication Instructions Recorded Melatonin 3 mg PO HS tab 11/22/22 QUEtiapine [SEROquel] 12.5 mg PO HS@2000 #15 tab 11/22/22 Meclizine [Antivert] 25 mg PO QID PRN #20 tab 12/14/22 Metoclopramide [Reglan] 10 mg PO Q6H PRN #30 tab 12/14/22 Allergies Allergy/AdvReac Type Severity Reaction Status Date / Time No Known Allergies Allergy Verified 12/14/22 09:51 Review of Systems ROS Statement: Those systems with pertinent positive or pertinent negative responses have been documented in the HPI. ROS Other: All systems not noted in ROS Statement are negative. Past Medical History Past Medical History: Diabetes Mellitus, Myocardial Infarction ([place]), Osteoarthritis ([place]), Prostate Disorder, Skin Disorder Additional Past Medical History / Comment(s): Neuropathy. Psoriasis., Last Myocardial Infarction Date:: 2020 History of Any Multi-Drug Resistant Organisms: None Reported Past Surgical History: Back Surgery, Bowel Resection, Heart Catheterization With Stent Additional Past Surgical History / Comment(s): Back surgery X3. Past Anesthesia/Blood Transfusion Reactions: No Reported Reaction Date of Last Stent Placement:: 2020 Past Psychological History: No Psychological Hx Reported Smoking Status: Never smoker Past Alcohol Use History: None Reported Past Drug Use History: None Reported - Past Family History Father Family Medical History: Cancer Additional Family Medical History / Comment(s): Colon Cancer. Brother(s) Family Medical History: Cancer Additional Family Medical History / Comment(s): Colon Cancer. General Exam Limitations: no limitations General appearance: alert, in no apparent distress Head exam: Present: atraumatic, normocephalic, normal inspection Eye exam: Present: normal appearance, PERRL, EOMI. Absent: scleral icterus, conjunctival injection, periorbital swelling Respiratory exam: Present: normal lung sounds bilaterally. Absent: respiratory distress, wheezes, rales, rhonchi, stridor Cardiovascular Exam: Present: regular rate, normal rhythm, normal heart sounds. Absent: systolic murmur, diastolic murmur, rubs, gallop, clicks Neurological exam: Present: alert, oriented X3, CN II-XII intact Psychiatric exam: Present: normal affect, normal mood Skin exam: Present: warm, dry, intact, normal color. Absent: rash Course Vital Signs 12/14/22 12/14/22 12/14/22 09:49 12:54 12:56 Temperature 98.1 F 98.8 F 98.7 F Pulse Rate 64 Pulse Rate [ 67 71 Clinical Study Manager ] Respiratory 18 20 20 Rate Blood Pressure 143/61 Blood Pressure 134/66 151/76 [Left Arm] O2 Sat by Pulse 99 97 96 Oximetry 12/14/22 12/14/22 12/14/22 12:58 15:01 17:02 Temperature 98.7 F Pulse Rate 66 56 L Pulse Rate [ 76 Clinical Study Manager ] Respiratory 21 20 16 Rate Blood Pressure 150/69 130/65 Blood Pressure 141/89 [Left Arm] O2 Sat by Pulse 97 96 98 Oximetry Medical Decision Making - Medical Decision Making This is an 87-year-old male who presents to the emergency department for dizziness. Was pt. sent in by a medical professional or institution? @ -No Did you speak to anyone other than the patient for history? @ -His provided the majority of the history. Did you review nursing and triage notes? @ -Yes, and I agree, it is accurate with regards to the patient's symptoms. Were old charts reviewed? @ -No Differential Diagnosis? @ -Differential Dizziness: Benign paroxysmal positional Vertigo, Menieres disease, otitis media, acoustic neuroma, vertebrobasilar insufficiency, cerebellar stroke, encephalitis, hypovolemic, arrhythmia, coronary artery syndrome, anemia, this is not meant to be an all-inclusive list EKG interpreted by me (3pts min.)? @ -EKG interpreted by me demonstrating the following: Supraventricular rhythm. Ventricular rate 63 beats per minute, QRS duration 109 ms, QTC 395 ms. X-rays interpreted by me (1pt min.)? @ -Chest x-ray obtained, my interpretation identifies no localized consolidations or infiltrates. CT interpreted by me (1pt min.)? @ -Not obtained U/S interpreted by me (1pt. min.)? @ -Not obtained What testing was considered but not performed? (CT, X-rays, U/S, labs)? Why? @ -None What meds were considered but not given? Why? @ -None Did you discuss the management of the patient with other professionals? @ -No Did you reconcile home meds? @ -No Was smoking cessation discussed for >3mins.? @ -No Was critical care preformed (if so, how long)? @ -No Were there social determinants of health that impacted care today? How? (Homelessness, low income, unemployed, alcoholism, drug addiction, transportat ion, low edu. Level, literacy, decrease access to med. care, intermediate, rehab)? @ -No Was there de-escalation of care discussed even if they declined? (Discuss DNR or withdrawal of care, Hospice)? @ -No What co-morbidities impacted this encounter? (DM, HTN, Smoking, COPD, CAD, Cancer, CVA, Hep., AIDS, mental health diagnosis, sleep apnea, morbid obesity)? @ -DM, CAD Was patient admitted / discharged? @ -Discharged. HINTS exam negative. Patient has no neurological deficits. Lab work obtained and found to be unremarkable. Urinalysis negative for signs of infection. Chest x-ray reveals no acute process, including no residual pneumonia. Orthostatics negative. Patient given a liter bolus of IV fluids and meclizine. When the patient went to sit and stand up during orthostatics, he became dizzy again and had to lay back down. Because of his continued dizziness, we did discuss admission for further management. Patient however wishes to try more medication and movement again before making that decision. He was then given a dose of Reglan and an additional dose of meclizine. After those medications, the patient was able to ambulate without significant reprodu ction of symptoms and at that point felt like he would prefer to go home. I did offer admission for further evaluation and management, however the patient declined. Rx for Meclizine and Reglan provided with dosing instructions reviewed for further management of possible vertigo. Patient otherwise discharged home in stable condition. Strict return parameters were discussed. Undiagnosed new problem with uncertain prognosis? @ -None Drug Therapy requiring intensive monitoring for toxicity (Heparin, Nitro, Insulin, Cardizem)? @ -None Were any procedures done? @ -None Diagnosis/symptom? @ -Dizziness, BPPV Acute, or Chronic, or Acute on Chronic? @ -Acute Uncomplicated (without systemic symptoms) or Complicated (systemic symptoms)? @ -Uncomplicated Side effects of treatment? @ -None Exacerbation, Progression, or Severe Exacerbation] @ -Not applicable Poses a threat to life or bodily function? @ -Potentially Return precautions reviewed in depth, the patient is instructed to return to the emergency department with any new, worsening, or concerning symptoms. Patient verbalized understanding. This case was discussed in detail with the attending ED physician, Dr. Howard. Presentation, findings, and treatment plan discussed in detail as well. - Lab Data Result diagrams: 12/14/22 10:16 12/14/22 11:14 Lab Results 12/14/22 12/14/22 12/14/22 Range/Units 10:16 10:16 10:16 WBC 6.5 (3.8-10.6) k/uL RBC 4.72 (4.30-5.90) m/uL Hgb 14.3 (13.0-17.5) gm/dL Hct 43.0 (39.0-53.0) % MCV 91.3 (80.0-100.0) fL MCH 30.4 (25.0-35.0) pg MCHC 33.3 (31.0-37.0) g/dL RDW 13.4 (11.5-15.5) % Plt Count 186 (150-450) k/uL MPV 8.1 Neutrophils % 70 % Lymphocytes % 21 % Monocytes % 5 % Eosinophils % 3 % Basophils % 0 % Neutrophils # 4.5 (1.3-7.7) k/uL Lymphocytes # 1.4 (1.0-4.8) k/uL Monocytes # 0.3 (0-1.0) k/uL Eosinophils # 0.2 (0-0.7) k/uL Basophils # 0.0 (0-0.2) k/uL Sodium (137-145) mmol/L Potassium (3.5-5.1) mmol/L Chloride (98-107) mmol/L Carbon Dioxide (22-30) mmol/L Anion Gap mmol/L BUN (9-20) mg/dL Creatinine (0.66-1.25) mg/dL Est GFR (CKD-EPI)AfAm (>60 ml/min/1.73 sqM) Est GFR (CKD-EPI)NonAf (>60 ml/min/1.73 sqM) Glucose (74-99) mg/dL Plasma Lactic Acid Sal 2.0 (0.7-2.0) mmol/L Calcium (8.4-10.2) mg/dL Total Bilirubin (0.2-1.3) mg/dL AST (17-59) U/L ALT (4-49) U/L Alkaline Phosphatase (38-126) U/L Troponin I 0.022 (0.000-0.034) ng/mL Total Protein (6.3-8.2) g/dL Albumin (3.5-5.0) g/dL Urine Color Urine Appearance (Clear) Urine pH (5.0-8.0) Ur Specific [place] (1.001-1.035) Urine Protein (Negative) Urine Glucose (UA) (Negative) Urine Ketones (Negative) Urine Blood (Negative) Urine Nitrite (Negative) Urine Bilirubin (Negative) Urine Urobilinogen (<2.0) mg/dL Ur Leukocyte Esterase (Negative) 12/14/22 12/14/22 12/14/22 Range/Units 11:14 12:03 13:05 WBC (3.8-10.6) k/uL RBC (4.30-5.90) m/uL Hgb (13.0-17.5) gm/dL Hct (39.0-53.0) % MCV (80.0-100.0) fL MCH (25.0-35.0) pg MCHC (31.0-37.0) g/dL RDW (11.5-15.5) % Plt Count (150-450) k/uL MPV Neutrophils % % Lymphocytes % % Monocytes % % Eosinophils % % Basophils % % Neutrophils # (1.3-7.7) k/uL Lymphocytes # (1.0-4.8) k/uL Monocytes # (0-1.0) k/uL Eosinophils # (0-0.7) k/uL Basophils # (0-0.2) k/uL Sodium 139 (137-145) mmol/L Potassium 4.4 (3.5-5.1) mmol/L Chloride 106 (98-107) mmol/L Carbon Dioxide 26 (22-30) mmol/L Anion Gap 7 mmol/L BUN 9 (9-20) mg/dL Creatinine 0.70 (0.66-1.25) mg/dL Est GFR (CKD-EPI)AfAm >90 (>60 ml/min/1.73 sqM) Est GFR (CKD-EPI)NonAf 85 (>60 ml/min/1.73 sqM) Glucose 105 H (74-99) mg/dL Plasma Lactic Acid Sal (0.7-2.0) mmol/L Calcium 8.5 (8.4-10.2) mg/dL Total Bilirubin 0.8 (0.2-1.3) mg/dL AST 22 (17-59) U/L ALT 14 (4-49) U/L Alkaline Phosphatase 53 (38-126) U/L Troponin I <0.012 (0.000-0.034) ng/mL Total Protein 5.4 L (6.3-8.2) g/dL Albumin 3.2 L (3.5-5.0) g/dL Urine Color Light Yellow Urine Appearance Clear (Clear) Urine pH 7.5 (5.0-8.0) Ur Specific [place] 1.015 (1.001-1.035) Urine Protein Negative (Negative) Urine Glucose (UA) Negative (Negative) Urine Ketones Negative (Negative) Urine Blood Negative (Negative) Urine Nitrite Negative (Negative) Urine Bilirubin Negative (Negative) Urine Urobilinogen <2.0 (<2.0) mg/dL Ur Leukocyte Esterase Negative (Negative) - Radiology Data Radiology results: report reviewed, image reviewed Disposition Clinical Impression: BPPV (benign paroxysmal positional vertigo), Dizziness Disposition: HOME SELF-CARE Instructions (If sedation given, give patient instructions): Vertigo (ED), Benign Paroxysmal Positional Vertigo (ED), Dizziness (ED) Additional Instructions: Return to the emergency department with any new, worsening, or concerning symptoms. You can try taking the meclizine up to every 6 hours as needed for feelings of dizziness. If that is not effective, you can try taking the Reglan. This can also be taken up to every 6 hours for feelings of vertigo. Make sure to stand up and move around slowly to reduce the risk of this happening again. Follow up with your primary care provider in 1-2 days. Prescriptions: Meclizine [Antivert] 25 mg PO QID PRN #20 tab PRN Reason: Vertigo Metoclopramide [Reglan] 10 mg PO Q6H PRN #30 tab PRN Reason: Vertigo Is patient prescribed a controlled substance at d/c from ED?: No Referrals: Kingston Thomas MD [Primary Care Provider] - 1-2 days
[2022-12-14 10:34] LABS: Basophils % (A) 0 %; Eosinophils # (A) 0.2 k/uL (0-0.7); Eosinophils % (A) 3 %; HGB 14.3 gm/dL (13.0-17.5); Lymphocytes # (A) 1.4 k/uL (1.0-4.8); Lymphocytes % (A) 21 %; MCH 30.4 pg (25.0-35.0); MCHC 33.3 g/dL (31.0-37.0); MCV 91.3 fL (80.0-100.0); Mean Platelet Volume 8.1; Monocytes # (A) 0.3 k/uL (0-1.0); Monocytes % (A) 5 %; Neutrophils # (A) 4.5 k/uL (1.3-7.7); Neutrophils % (A) 70 %; Platelet Count 186 k/uL (150-450); RBC 4.72 m/uL (4.30-5.90); RDW 13.4 % (11.5-15.5); WBC 6.5 k/uL (3.8-10.6)
--- NOTE | 2022-12-14 11:06 | XR ---
EXAMINATION TYPE: XR chest 2V DATE OF EXAM: 12/14/2022 COMPARISON: 12/01/2022 TECHNIQUE: PA and lateral views submitted. HISTORY: Dizziness FINDINGS: The lungs are clear and there is no pneumothorax, pleural effusion, or focal pneumonia. Heart size normal and no overt failure. Osseous structures demonstrate hypertrophic and degenerative changes of the spine. Limited inspiration with atherosclerotic change aorta. Bilateral shoulder arthropathy. IMPRESSION: 1. No acute process.
[2022-12-14 11:32] LABS: ALT 14 U/L (4-49); AST 22 U/L (17-59); African American GFR (CKD) >90 (>60 ml/min/1.73 sqM); Albumin 3.2 g/dL (3.5-5.0); Alkaline Phosphatase 53 U/L (38-126); Anion Gap 7 mmol/L; Blood Urea Nitrogen 9 mg/dL (9-20); Calcium 8.5 mg/dL (8.4-10.2); Carbon Dioxide 26 mmol/L (22-30); Chloride 106 mmol/L (98-107); Glucose 105 mg/dL (74-99); Non-African American GFR(CKD) 85 (>60 ml/min/1.73 sqM); Potassium 4.4 mmol/L (3.5-5.1); Sodium 139 mmol/L (137-145); Total Bilirubin 0.8 mg/dL (0.2-1.3); Total Protein 5.4 g/dL (6.3-8.2)
[2022-12-14 13:22] VITALS: TEMP 98.7
[2022-12-14 13:37] LABS: Appearance,Urine Clear (Clear); Bilirubin,Urine Negative (Negative); Color,Urine Light Yellow; Glucose,Urine (UA) Negative (Negative); Ketones,Urine Negative (Negative); PH, Urine 7.5 (5.0-8.0); Protein,Urine Negative (Negative); Specific Gravity,Urine 1.015 (1.001-1.035)
[2022-12-14 13:38] LABS: Blood,Urine Negative (Negative); Leukocyte Esterase,Urine Negative (Negative); Nitrite,Urine Negative (Negative); Urobilinogen,Urine <2.0 mg/dL (<2.0)
[2022-12-14] MEDS ORDERED: METOCLOPRAMIDE 5 MG/ML 2 ML VIAL IVP STA (13:51)
[2022-12-14 17:22] VITALS: BP 130/65; PULSE 56; RESP 16
== END 2022-12-14 17:03 | disposition home or self-care (01) ==
LOC: EC 09:45 → SUPCPDRO 09:45 → EC 17:03
DX: H81.10 Benign paroxysmal vertigo, unspecified ear (principal); E11.40 Type 2 diabetes mellitus with diabetic neuropathy, unspecified; I25.2 Old myocardial infarction; Z79.84 Long term (current) use of oral hypoglycemic drugs; Z79.82 Long term (current) use of aspirin; Z79.899 Other long term (current) drug therapy
CPT/HCPCS: 36415; 93005; 80053; 83605; 84484; 85025; 81003; 71046; 99284; 96374; 96361; J2765

== ENCOUNTER 2022-12-25 08:30 | Emergency (ER) | payer MEDICARE ==
[2022-12-25 08:58] VITALS: RESP 18
[2022-12-25] MEDS ORDERED: DEXAMETHASONE SOD PHOSPHATE 10 MG/ML 1 ML VIAL IM STA (09:14)
[2022-12-25] MEDS ORDERED: ACETAMINOPHEN TAB 500 MG TAB PO STA (09:15)
[2022-12-25] MEDS ORDERED: MAG HYDROX/AL HYDROX/SIMETH 30 ML, HYOSCYAMINE ELIXIR 10 ML, LIDOCAINE VISCOUS 2% 10 ML PO STA ×3 (09:19)
[2022-12-25] MEDS ORDERED: LIDOCAINE 2% GLYDO JELLY 11 ML APPL PO ONE (09:30)
--- NOTE | 2022-12-25 09:41 | ED ---
URI HPI - General Chief Complaint: Upper Respiratory Infection Stated Complaint: Sore Throat, Body Aches Time Seen by Provider: 12/25/22 08:41 Source: patient, RN notes reviewed Mode of arrival: ambulatory Limitations: no limitations - History of Present Illness Initial Comments: This is an 87-year-old male who presents to the emergency department for a sore throat, body aches, and fatigue. Symptoms started yesterday. He's not measured any temperatures, but states that he feels hot and cold. Reports minor coughing but denies any chest pain or shortness of breath. He is unsure if he has had any sick contacts. MD Complaint: sore throat - Related Data Home Medications Medication Instructions Recorded Confirmed Tamsulosin HCl [Flomax] 0.4 mg PO HS 10/06/13 11/20/22 metFORMIN HCL [Glucophage] 500 mg PO BID 10/06/13 11/20/22 Dutasteride [Avodart] 0.5 mg PO HS 07/15/16 11/20/22 DULoxetine HCL [Cymbalta] 30 mg PO HS 12/24/19 11/20/22 Aspirin EC [Ecotrin Low Dose] 81 mg PO DAILY 08/28/20 11/20/22 Cholecalciferol [Vitamin D3 (25 25 mcg PO DAILY 08/28/20 11/20/22 Mcg = 1000 Iu)] Docusate [Colace] 100 mg PO HS 08/28/20 11/20/22 Magnesium Oxide [Escalona] 500 mg PO DAILY 08/28/20 11/20/22 Metoprolol Tartrate [Lopressor] 12.5 mg PO BID 08/28/20 11/20/22 Nitroglycerin Sl Tabs [Nitrostat] 0.4 mg SUBLINGUAL Q5M PRN 08/28/20 11/20/22 Vitamin K2 100 mcg PO DAILY 08/28/20 11/20/22 Zinc 50 mg PO DAILY 08/28/20 11/20/22 Cyanocobalamin (Vitamin B-12) 1,000 mcg PO HS 11/18/22 11/20/22 [Vitamin B-12] Folic Acid 0.4 mg PO HS 11/18/22 11/20/22 Rosuvastatin [Crestor] 10 mg PO HS 11/18/22 11/20/22 [place] 500 mg PO DAILY 11/18/22 11/20/22 Sennosides [Senokot] 8.6 mg PO BID 11/18/22 11/20/22 polyethylene glycoL 3350 [Miralax] 17 gm PO DAILY 11/18/22 11/20/22 Previous Rx's Medication Instructions Recorded Melatonin 3 mg PO HS tab 11/22/22 QUEtiapine [SEROquel] 12.5 mg PO HS@2000 #15 tab 11/22/22 Meclizine [Antivert] 25 mg PO QID PRN #20 tab 12/14/22 Metoclopramide [Reglan] 10 mg PO Q6H PRN #30 tab 12/14/22 Molnupiravir [Lagevrio (Eua)] 200 mg PO BID 5 Days #40 cap 12/25/22 Promethazine/Dextromethorphan 5 ml PO Q4-6H PRN #473 ml 12/25/22 [Promethazine-Dm 6.25-15 mg/5Ml] lidocaine HCL [Lidocaine HCl 5 - 10 ml PO Q4-6H PRN #100 ml 12/25/22 Viscous] Allergies Allergy/AdvReac Type Severity Reaction Status Date / Time No Known Allergies Allergy Verified 12/25/22 08:40 Review of Systems ROS Statement: Those systems with pertinent positive or pertinent negative responses have been documented in the HPI. ROS Other: All systems not noted in ROS Statement are negative. Past Medical History Past Medical History: Diabetes Mellitus, Myocardial Infarction ([place]), Osteoarthritis (OA), Prostate Disorder, Skin Disorder Additional Past Medical History / Comment(s): Neuropathy. Psoriasis., Last Myocardial Infarction Date:: 2020 History of Any Multi-Drug Resistant Organisms: None Reported Past Surgical History: Back Surgery, Bowel Resection, Heart Catheterization With Stent Additional Past Surgical History / Comment(s): Back surgery X3. Past Anesthesia/Blood Transfusion Reactions: No Reported Reaction Date of Last Stent Placement:: 2020 Past Psychological History: No Psychological Hx Reported Smoking Status: Never smoker Past Alcohol Use History: None Reported Past Drug Use History: None Reported - Past Family History Father Family Medical History: Cancer Additional Family Medical History / Comment(s): Colon Cancer. Brother(s) Family Medical History: Cancer Additional Family Medical History / Comment(s): Colon Cancer. General Exam Limitations: no limitations General appearance: alert, in no apparent distress Head exam: Present: atraumatic, normocephalic, normal inspection ENT exam: Present: other (Posterior pharyngeal erythema. 3+ tonsillar hypertrophy. No exudates.) Respiratory exam: Present: normal lung sounds bilaterally. Absent: respiratory distress, wheezes, rales, rhonchi, stridor Cardiovascular Exam: Present: regular rate, normal rhythm, normal heart sounds. Absent: systolic murmur, diastolic murmur, rubs, gallop, clicks Neurological exam: Present: alert, oriented X3, CN II-XII intact Psychiatric exam: Present: normal affect, normal mood Skin exam: Present: warm, dry, intact, normal color. Absent: rash Course Vital Signs 12/25/22 12/25/22 12/25/22 08:36 09:16 11:22 Temperature 98.7 F 100.3 F H 100.4 F H Pulse Rate 100 82 Respiratory 18 18 Rate Blood Pressure 107/70 115/69 O2 Sat by Pulse 95 99 Oximetry 12/25/22 11:23 Temperature 100.4 F H Pulse Rate Respiratory Rate Blood Pressure O2 Sat by Pulse Oximetry Medical Decision Making - Medical Decision Making This is an 87-year-old male who presents to the emergency department for a sore throat and body aches. Was pt. sent in by a medical professional or institution? @ -No Did you speak to anyone other than the patient for history? @ -No Did you review nursing and triage notes? @ -Yes, and I agree, it is accurate with regards to the patient's symptoms. Were old charts reviewed? @ -No Differential Diagnosis? @ -Differential Sore Throat: Strep pharyngitis, herpes zoster, COVID, influenza, GERD, allergic rhinitis, mononucleosis, this is not meant to be an all-inclusive list. EKG interpreted by me (3pts min.)? @ -Not obtained X-rays interpreted by me (1pt min.)? @ -Not obtained CT interpreted by me (1pt min.)? @ -Not obtained U/S interpreted by me (1pt. min.)? @ -Not obtained What testing was considered but not performed? (CT, X-rays, U/S, labs)? Why? @ -None What meds were considered but not given? Why? @ -None Did you discuss the management of the patient with other professionals? @ -No Did you reconcile home meds? @ -No Was smoking cessation discussed for >3mins.? @ -No Was critical care preformed (if so, how long)? @ -No Were there social determinants of health that impacted care today? How? (Homelessness, low income, unemployed, alcoholism, drug addiction, transportation, low edu. Level, literacy, decrease access to med. care, retirement, rehab)? @ -No Was there de-escalation of care discussed even if they declined? (Discuss DNR or withdrawal of care, Hospice)? @ -No What co-morbidities impacted this encounter? (DM, HTN, Smoking, COPD, CAD, Cancer, CVA, Hep., AIDS, mental health diagnosis, sleep apnea, morbid obesity)? @ -DM Was patient admitted / discharged? @ -Discharged. Rapid strep test negative. Patient positive for COVID-19. Influenza and RSV testing are negative. He was febrile in the emergency department with a temperature of 100.4F. This was treated with Tylenol. Viscous lidocaine administered in the emergency department for the sore throat, which was helpful. We discussed the possibility of antiviral treatment, as he is in the window when this can be provided. Patient wishes to proceed. Given that he is on several medications and has several comorbidities, prescription for Molnupiravir was provided as opposed to Paxlovid due to fewer medication interactions. He was also given prescriptions for viscous lidocaine and promethazine DM cough syrup for additional symptomatic management. Advised Tylenol as needed for any additional fevers. He is also advised that he will need to quarantine for 5 days and practice extra precautions for an additional 5 days, including always wearing a mask around others and avoiding travel. Undiagnosed new problem with uncertain prognosis? @ -None Drug Therapy requiring intensive monitoring for toxicity (Heparin, Nitro, Insulin, Cardizem)? @ -None Were any procedures done? @ -None Diagnosis/symptom? @ -COVID-19 Acute, or Chronic, or Acute on Chronic? @ -Acute Uncomplicated (without systemic symptoms) or Complicated (systemic symptoms)? @ -Uncomplicated Side effects of treatment? @ -None Exacerbation, Progression, or Severe Exacerbation] @ -Not applicable Poses a threat to life or bodily function? @ -Unlikely Return precautions reviewed in depth, the patient is instructed to return to the emergency department with any new, worsening, or concerning symptoms. Patient verbalized understanding. This case was discussed in detail with the attending ED physician, Dr. Moreno. Presentation, findings, and treatment plan discussed in detail as well. - Lab Data Lab Results 12/25/22 12/25/22 Range/Units 08:52 10:13 Influenza Type A (PCR) Not Detected (Not Detectd) Influenza Type B (PCR) Not Detected (Not Detectd) RSV (PCR) Not Detected (Not Detectd) SARS-CoV-2 (PCR) Detected A (Not Detectd) Group A Strep (PCR) NOT DETECTED (Not Detectd) Disposition Clinical Impression: COVID-19 Disposition: HOME SELF-CARE Instructions (If sedation given, give patient instructions): COVID-19 (Coronavirus Disease 2019) (ED), Safely Care for Someone Who Has COVID-19 (ED), How to Recover from COVID-19 at Home (ED) Additional Instructions: Return to the emergency department with any new, worsening, or concerning symptoms. Take the antiviral medication molnupiravir as 4 tablets twice a day for 5 days. You can use the viscous lidocaine as 5-10 mL every 4-6 hours as needed for a sore throat. The cough medication can be used every 4-6 hours as needed as well. Take Tylenol as needed for fevers. You can also use other [id number] medications such as cough drops or lozenges. Prescriptions: Molnupiravir [Lagevrio (Eua)] 200 mg PO BID 5 Days #40 cap lidocaine HCL [Lidocaine HCl Viscous] 5 - 10 ml PO Q4-6H PRN #100 ml PRN Reason: Sore Throat Promethazine/Dextromethorphan [Promethazine-Dm 6.25-15 mg/5Ml] 5 ml PO Q4-6H PRN #473 ml PRN Reason: Cough Is patient prescribed a controlled substance at d/c from ED?: No Referrals: Kingston Thomas MD [Primary Care Provider] - 1-2 days
[2022-12-25 11:31] VITALS: BP 115/69; PULSE 82; TEMP 100.4
== END 2022-12-25 11:40 | disposition home or self-care (01) ==
LOC: EC 08:30
DX: U07.1 COVID-19 (principal); E11.9 Type 2 diabetes mellitus without complications; I21.9 Acute myocardial infarction, unspecified; M19.90 Unspecified osteoarthritis, unspecified site; Z79.84 Long term (current) use of oral hypoglycemic drugs; Z79.82 Long term (current) use of aspirin; Z79.899 Other long term (current) drug therapy
CPT/HCPCS: 87651; 87636; 99283; 96372; J1100

== ENCOUNTER 2022-12-26 23:32 | Emergency (ER) | payer MEDICARE ==
[2022-12-26] MEDS ORDERED: SODIUM CHLORIDE 0.9% 1,000 ML IV ONE (23:57)
[2022-12-27 00:30] LABS: Basophils % (A) 0 %; Eosinophils # (A) 0.1 k/uL (0-0.7); Eosinophils % (A) 1 %; HCT 40.4 % (39.0-53.0); HGB 13.5 gm/dL (13.0-17.5); Lymphocytes # (A) 1.1 k/uL (1.0-4.8); Lymphocytes % (A) 13 %; MCH 30.3 pg (25.0-35.0); MCHC 33.5 g/dL (31.0-37.0); MCV 90.5 fL (80.0-100.0); Mean Platelet Volume 9.2; Monocytes # (A) 0.5 k/uL (0-1.0); Monocytes % (A) 5 %; Neutrophils # (A) 7.1 k/uL (1.3-7.7); Neutrophils % (A) 80 %; Platelet Count 139 k/uL (150-450); RBC 4.46 m/uL (4.30-5.90); RDW 13.4 % (11.5-15.5); WBC 8.9 k/uL (3.8-10.6)
[2022-12-27 00:49] LABS: INR 0.9 (<1.2); Partial Thromboplastin Time 32.9 sec (22.0-30.0); Prothrombin Time 10.2 sec (10.0-12.5)
[2022-12-27 01:08] LABS: Magnesium 1.9 mg/dL (1.6-2.3)
[2022-12-27 01:10] LABS: ALT 11 U/L (4-49); AST 24 U/L (17-59); African American GFR (CKD) 60 (>60 ml/min/1.73 sqM); Albumin 3.5 g/dL (3.5-5.0); Alkaline Phosphatase 53 U/L (38-126); Anion Gap 9 mmol/L; Blood Urea Nitrogen 21 mg/dL (9-20); Calcium 8.6 mg/dL (8.4-10.2); Carbon Dioxide 26 mmol/L (22-30); Chloride 102 mmol/L (98-107); Glucose 102 mg/dL (74-99); Non-African American GFR(CKD) 52 (>60 ml/min/1.73 sqM); Potassium 4.3 mmol/L (3.5-5.1); Sodium 137 mmol/L (137-145); Total Bilirubin 0.6 mg/dL (0.2-1.3)
--- NOTE | 2022-12-27 01:29 | XR ---
EXAM: XR Chest, 2 Views CLINICAL HISTORY: ITS.REASON XR Reason: cough TECHNIQUE: Frontal and lateral views of the chest. COMPARISON: No relevant prior studies available. FINDINGS: Lungs: Unremarkable. No consolidation. Pleural space: Unremarkable. No pneumothorax. Heart: Unremarkable. No cardiomegaly. Mediastinum: Unremarkable. Bones/joints: Unremarkable. IMPRESSION: Normal chest x-rays.
[2022-12-27 01:37] VITALS: TEMP 98.3
--- NOTE | 2022-12-27 01:41 | ED ---
General Adult HPI - General Chief complaint: Abdominal Pain Stated complaint: Abd Pain Time Seen by Provider: 12/26/22 23:43 Source: family, EMS, RN notes reviewed - History of Present Illness Initial comments: This is an 87 male with past medical history significant for UT and diabetes mellitus who presents the emergency department with a chief complaint of chest pain. Patient reports sudden onset left-sided chest pain that he describes as sharp. This then prompted him to call the ambulance upon evaluation patient denies any active chest pain. "Patient states I don't have chest pain now however he probably has some tomorrow." The patient's reports that he has been slightly altered and having visual hallucinations. Reports recent Covid diagnosis. Patient A and O 3. Denies any recent falls or trauma. - Related Data Home Medications Medication Instructions Recorded Confirmed Tamsulosin HCl [Flomax] 0.4 mg PO HS 10/06/13 11/20/22 metFORMIN HCL [Glucophage] 500 mg PO BID 10/06/13 11/20/22 Dutasteride [Avodart] 0.5 mg PO HS 07/15/16 11/20/22 DULoxetine HCL [Cymbalta] 30 mg PO HS 12/24/19 11/20/22 Aspirin EC [Ecotrin Low Dose] 81 mg PO DAILY 08/28/20 11/20/22 Cholecalciferol [Vitamin D3 (25 25 mcg PO DAILY 08/28/20 11/20/22 Mcg = 1000 Iu)] Docusate [Colace] 100 mg PO HS 08/28/20 11/20/22 Magnesium Oxide [Escalona] 500 mg PO DAILY 08/28/20 11/20/22 Metoprolol Tartrate [Lopressor] 12.5 mg PO BID 08/28/20 11/20/22 Nitroglycerin Sl Tabs [Nitrostat] 0.4 mg SUBLINGUAL Q5M PRN 08/28/20 11/20/22 Vitamin K2 100 mcg PO DAILY 08/28/20 11/20/22 Zinc 50 mg PO DAILY 08/28/20 11/20/22 Cyanocobalamin (Vitamin B-12) 1,000 mcg PO HS 11/18/22 11/20/22 [Vitamin B-12] Folic Acid 0.4 mg PO HS 11/18/22 11/20/22 Rosuvastatin [Crestor] 10 mg PO HS 11/18/22 11/20/22 [place] 500 mg PO DAILY 11/18/22 11/20/22 Sennosides [Senokot] 8.6 mg PO BID 11/18/22 11/20/22 polyethylene glycoL 3350 [Miralax] 17 gm PO DAILY 11/18/22 11/20/22 Previous Rx's Medication Instructions Recorded Melatonin 3 mg PO HS tab 11/22/22 QUEtiapine [SEROquel] 12.5 mg PO HS@2000 #15 tab 11/22/22 Meclizine [Antivert] 25 mg PO QID PRN #20 tab 12/14/22 Metoclopramide [Reglan] 10 mg PO Q6H PRN #30 tab 12/14/22 Molnupiravir [Lagevrio (Eua)] 200 mg PO BID 5 Days #40 cap 12/25/22 Promethazine/Dextromethorphan 5 ml PO Q4-6H PRN #473 ml 12/25/22 [Promethazine-Dm 6.25-15 mg/5Ml] lidocaine HCL [Lidocaine HCl 5 - 10 ml PO Q4-6H PRN #100 ml 12/25/22 Viscous] Allergies Allergy/AdvReac Type Severity Reaction Status Date / Time No Known Allergies Allergy Verified 12/25/22 08:40 Review of Systems ROS Statement: Those systems with pertinent positive or pertinent negative responses have been documented in the HPI. ROS Other: All systems not noted in ROS Statement are negative. Past Medical History Past Medical History: Diabetes Mellitus, Myocardial Infarction (UT), Osteoarthritis (OA), Prostate Disorder, Skin Disorder Additional Past Medical History / Comment(s): Neuropathy. Psoriasis., Last Myocardial Infarction Date:: 2020 History of Any Multi-Drug Resistant Organisms: None Reported Past Surgical History: Back Surgery, Bowel Resection, Heart Catheterization With Stent Additional Past Surgical History / Comment(s): Back surgery X3. Past Anesthesia/Blood Transfusion Reactions: No Reported Reaction Date of Last Stent Placement:: 2020 Past Psychological History: No Psychological Hx Reported Smoking Status: Never smoker Past Alcohol Use History: None Reported Past Drug Use History: None Reported - Past Family History Father Family Medical History: Cancer Additional Family Medical History / Comment(s): Colon Cancer. Brother(s) Family Medical History: Cancer Additional Family Medical History / Comment(s): Colon Cancer. General Exam - General Exam Comments Initial Comments: General: Alert, in no acute distress Head: atraumatic normocephalic. Eyes PERRL, EOMI intact, mucous membranes moist Respiratory: Lungs clear to auscultation bilaterally Cardiovascular: Heart rate regular rate and rhythm Abdominal: Soft without guarding or rebound Extremities: Normal inspection with full range of motion and normal capillary r efill Neuroogic: alert and oriented 3, CN II-XII intact, able to ambulate with steady gait Skin: warm dry and intact with normal color Course Vital Signs 12/26/22 12/27/22 12/27/22 23:42 00:00 00:30 Temperature 97.6 F Pulse Rate 71 75 73 Respiratory 19 20 24 Rate Blood Pressure 85/43 87/53 115/69 O2 Sat by Pulse 93 L 93 L 94 L Oximetry 12/27/22 12/27/22 12/27/22 00:38 01:00 01:19 Temperature 98.3 F Pulse Rate 72 Respiratory 19 24 Rate Blood Pressure 115/55 O2 Sat by Pulse 94 L Oximetry 12/27/22 12/27/22 01:30 02:30 Temperature Pulse Rate 74 68 Respiratory 20 23 Rate Blood Pressure 118/54 124/61 O2 Sat by Pulse 94 L 94 L Oximetry - Reevaluation(s) Reevaluation #1: 12/27/22 01:37 Patient reevaluated. Updated on results. Encouraged to provide urine sample. Reevaluation #2: 12/27/22 04:17 Patient reevaluated updated on results and agreeable with the plan for admission. Patient still remains A and O 3 however will answer questions with incorrect response. EKG Findings - EKG Comments: EKG Findings:: I interpreted the following: EKG performed at 00:07 rate 73 bpm normal sinus rhythm. Right bundle-branch block. MS interval 184, QRS duration 134, QT/QTc 392/418 Medical Decision Making - Medical Decision Making Was pt. sent in by a medical professional or institution (, [facility], ADJUNCT PHYSICAL EDUCATION INSTRUCTOR, urgent care, hospital, or group home...) When possible be specific @ -[No] Did you speak to anyone other than the patient for history (EMS, parent, family, police, friend...)? What history was obtained from this source @ -[No] Did you review nursing and triage notes (agree or disagree)? Why? @ -[I reviewed and agree with nursing and triage notes] Were old charts reviewed (outside hosp., previous admission, EMS record, old E KG, old radiological studies, urgent care reports/EKG's, group home records)? Report findings @ -12/25/2022 Differential Diagnosis (chest pain, altered mental status, abdominal pain women, abdominal pain men, vaginal bleeding, weakness, fever, dyspnea, syncope, headache, dizziness, GI bleed, back pain, seizure, CVA, palpatations, mental health, musculoskeletal)? @ -[not applicable] EKG interpreted by me (3pts min.). @ -[As above] X-rays interpreted by me (1pt min.). @ -Yes CT interpreted by me (1pt min.). @ -Yes U/S interpreted by me (1pt. min.). @ -[None done] What testing was considered but not performed or refused? (CT, X-rays, U/S, labs)? Why? @ -[None] What meds were considered but not given or refused? Why? @ -[None] Did you discuss the management of the patient with other professionals (professionals i.e. , PA, ADJUNCT PHYSICAL EDUCATION INSTRUCTOR, lab, RT, psych nurse, social scientist, second chef, teacher, juvenile justice officer, case work aide)? Give summary @ -[No] Was smoking cessation discussed for >3mins.? @ -[No] Was critical care preformed (if so, how long)? @ -[No] Were there social determinants of health that impacted care today? How? (Homelessness, low income, unemployed, alcoholism, drug addiction, transportation, low edu. Level, literacy, decrease access to med. care, longterm, rehab)? @ -[No] Was there de-escalation of care discussed even if they declined (Discuss DNR or withdrawal of care, Hospice)? DNR status @ -[No] What co-morbidities impacted this encounter? (DM, HTN, Smoking, COPD, CAD, Cancer, CVA, ARF, Chemo, Hep., AIDS, mental health diagnosis, sleep apnea, morbid obesity)? @ -[None] Was patient admitted / discharged? Hospital course, mention meds given and route, prescriptions, significant lab abnormalities, going to OR and other pertinent info. @ -Admission. This is an 87-year-old male who presents the emergency department with chest pain. Patient had a history and physical exam performed physical exam is essentially unremarkable. Heart rate regular rate and rhythm, lungs clear to auscultation bilaterally abdomen soft and nontender. Patient is alert and oriented 3, however he will respond to some questions inap propriately. Patient had extensive workup the CBC 3.9, hemoglobin 13.5 coagulation studies unremarkable platelets 139 Sodium 137, potassium 4.3 BUN 21, creatinine 1.24 serial troponins are negative. Urinalysis negative Patient diagnosed Covid positive on 12/26/2022. Patient's chest x-ray did reveal any intrapleural process. Patient's CAT scan is negative for any intracranial bleed or midline shift. I discussed the results in detail with the patient and patient's who verbalized understanding and all questions were addressed. The agreeable with the plan for admission for further observation with consult to neurology. Case is discussed with brittanie Cyr who agrees and accepts the patient for further observation. Case discussed with SILKE Gray who agrees with plan Undiagnosed new problem with uncertain prognosis? @ -[No] Drug Therapy requiring intensive monitoring for toxicity (Heparin, Nitro, Insulin, Cardizem)? @ -[No] Were any procedures done? @ -[No] Diagnosis/symptom? @ -Chest Pain - AMS - COVID19 Acute, or Chronic, or Acute on Chronic? @ -Acute Uncomplicated (without systemic symptoms) or Complicated (systemic symptoms)? @ -Uncomplicated Side effects of treatment? @ -[No] Exacerbation, Progression, or Severe Exacerbation? @ -[No] Poses a threat to life or bodily function? How? (Chest pain, [place], UT, pneumonia, PE, COPD, DKA, ARF, appy, cholecystitis, CVA, Diverticulitis, Homicidal, Suicidal, threat to staff... and all critical care pts) @ -Yes - Lab Data Result diagrams: 12/27/22 00:05 12/27/22 00:05 Lab Results 12/27/22 12/27/22 12/27/22 Range/Units 00:05 00:05 00:05 WBC 8.9 (3.8-10.6) k/uL RBC 4.46 (4.30-5.90) m/uL Hgb 13.5 (13.0-17.5) gm/dL Hct 40.4 (39.0-53.0) % MCV 90.5 (80.0-100.0) fL MCH 30.3 (25.0-35.0) pg MCHC 33.5 (31.0-37.0) g/dL RDW 13.4 (11.5-15.5) % Plt Count 139 L (150-450) k/uL MPV 9.2 Neutrophils % 80 % Lymphocytes % 13 % Monocytes % 5 % Eosinophils % 1 % Basophils % 0 % Neutrophils # 7.1 (1.3-7.7) k/uL Lymphocytes # 1.1 (1.0-4.8) k/uL Monocytes # 0.5 (0-1.0) k/uL Eosinophils # 0.1 (0-0.7) k/uL Basophils # 0.0 (0-0.2) k/uL PT (10.0-12.5) sec INR (<1.2) APTT (22.0-30.0) sec Sodium 137 (137-145) mmol/L Potassium 4.3 (3.5-5.1) mmol/L Chloride 102 (98-107) mmol/L Carbon Dioxide 26 (22-30) mmol/L Anion Gap 9 mmol/L BUN 21 H (9-20) mg/dL Creatinine 1.24 (0.66-1.25) mg/dL Est GFR (CKD-EPI)AfAm 60 (>60 ml/min/1.73 sqM) Est GFR (CKD-EPI)NonAf 52 (>60 ml/min/1.73 sqM) Glucose 102 H (74-99) mg/dL Calcium 8.6 (8.4-10.2) mg/dL Magnesium (1.6-2.3) mg/dL Total Bilirubin 0.6 (0.2-1.3) mg/dL AST 24 (17-59) U/L ALT 11 (4-49) U/L Alkaline Phosphatase 53 (38-126) U/L Troponin I <0.012 (0.000-0.034) ng/mL NT-Pro-B Natriuret Pep pg/mL Total Protein 6.0 L (6.3-8.2) g/dL Albumin 3.5 (3.5-5.0) g/dL Urine Color Urine Appearance (Clear) Urine pH (5.0-8.0) Ur Specific [place] (1.001-1.035) Urine Protein (Negative) Urine Glucose (UA) (Negative) Urine Ketones (Negative) Urine Blood (Negative) Urine Nitrite (Negative) Urine Bilirubin (Negative) Urine Urobilinogen (<2.0) mg/dL Ur Leukocyte Esterase (Negative) 12/27/22 12/27/22 12/27/22 Range/Units 00:21 00:21 00:21 WBC (3.8-10.6) k/uL RBC (4.30-5.90) m/uL Hgb (13.0-17.5) gm/dL Hct (39.0-53.0) % MCV (80.0-100.0) fL MCH (25.0-35.0) pg MCHC (31.0-37.0) g/dL RDW (11.5-15.5) % Plt Count (150-450) k/uL MPV Neutrophils % % Lymphocytes % % Monocytes % % Eosinophils % % Basophils % % Neutrophils # (1.3-7.7) k/uL Lymphocytes # (1.0-4.8) k/uL Monocytes # (0-1.0) k/uL Eosinophils # (0-0.7) k/uL Basophils # (0-0.2) k/uL PT 10.2 (10.0-12.5) sec INR 0.9 (<1.2) APTT 32.9 H (22.0-30.0) sec Sodium (137-145) mmol/L Potassium (3.5-5.1) mmol/L Chloride (98-107) mmol/L Carbon Dioxide (22-30) mmol/L Anion Gap mmol/L BUN (9-20) mg/dL Creatinine (0.66-1.25) mg/dL Est GFR (CKD-EPI)AfAm (>60 ml/min/1.73 sqM) Est GFR (CKD-EPI)NonAf (>60 ml/min/1.73 sqM) Glucose (74-99) mg/dL Calcium (8.4-10.2) mg/dL Magnesium 1.9 (1.6-2.3) mg/dL Total Bilirubin (0.2-1.3) mg/dL AST (17-59) U/L ALT (4-49) U/L Alkaline Phosphatase (38-126) U/L Troponin I (0.000-0.034) ng/mL NT-Pro-B Natriuret Pep 296 pg/mL Total Protein (6.3-8.2) g/dL Albumin (3.5-5.0) g/dL Urine Color Yellow Urine Appearance Clear (Clear) Urine pH 5.5 (5.0-8.0) Ur Specific [place] 1.015 (1.001-1.035) Urine Protein Trace H (Negative) Urine Glucose (UA) Negative (Negative) Urine Ketones Negative (Negative) Urine Blood Negative (Negative) Urine Nitrite Negative (Negative) Urine Bilirubin Negative (Negative) Urine Urobilinogen <2.0 (<2.0) mg/dL Ur Leukocyte Esterase Negative (Negative) 12/27/22 Range/Units 03:08 WBC (3.8-10.6) k/uL RBC (4.30-5.90) m/uL Hgb (13.0-17.5) gm/dL Hct (39.0-53.0) % MCV (80.0-100.0) fL MCH (25.0-35.0) pg MCHC (31.0-37.0) g/dL RDW (11.5-15.5) % Plt Count (150-450) k/uL MPV Neutrophils % % Lymphocytes % % Monocytes % % Eosinophils % % Basophils % % Neutrophils # (1.3-7.7) k/uL Lymphocytes # (1.0-4.8) k/uL Monocytes # (0-1.0) k/uL Eosinophils # (0-0.7) k/uL Basophils # (0-0.2) k/uL PT (10.0-12.5) sec INR (<1.2) APTT (22.0-30.0) sec Sodium (137-145) mmol/L Potassium (3.5-5.1) mmol/L Chloride (98-107) mmol/L Carbon Dioxide (22-30) mmol/L Anion Gap mmol/L BUN (9-20) mg/dL Creatinine (0.66-1.25) mg/dL Est GFR (CKD-EPI)AfAm (>60 ml/min/1.73 sqM) Est GFR (CKD-EPI)NonAf (>60 ml/min/1.73 sqM) Glucose (74-99) mg/dL Calcium (8.4-10.2) mg/dL Magnesium (1.6-2.3) mg/dL Total Bilirubin (0.2-1.3) mg/dL AST (17-59) U/L ALT (4-49) U/L Alkaline Phosphatase (38-126) U/L Troponin I <0.012 (0.000-0.034) ng/mL NT-Pro-B Natriuret Pep pg/mL Total Protein (6.3-8.2) g/dL Albumin (3.5-5.0) g/dL Urine Color Urine Appearance (Clear) Urine pH (5.0-8.0) Ur Specific [place] (1.001-1.035) Urine Protein (Negative) Urine Glucose (UA) (Negative) Urine Ketones (Negative) Urine Blood (Negative) Urine Nitrite (Negative) Urine Bilirubin (Negative) Urine Urobilinogen (<2.0) mg/dL Ur Leukocyte Esterase (Negative) Disposition Clinical Impression: COVID-19, AMS (altered mental status), Chest pain Disposition: ADMITTED IP TO THIS HOSP Condition: Fair Is patient prescribed a controlled substance at d/c from ED?: No Referrals: Kingston Thomas MD [Primary Care Provider] - 1-2 days Time of Disposition: 04:02
[2022-12-27 01:45] LABS: Appearance,Urine Clear (Clear); Bilirubin,Urine Negative (Negative); Blood,Urine Negative (Negative); Color,Urine Yellow; Glucose,Urine (UA) Negative (Negative); Ketones,Urine Negative (Negative); Leukocyte Esterase,Urine Negative (Negative); Nitrite,Urine Negative (Negative); PH, Urine 5.5 (5.0-8.0); Protein,Urine Trace (Negative); Specific Gravity,Urine 1.015 (1.001-1.035); Urobilinogen,Urine <2.0 mg/dL (<2.0)
[2022-12-27] MEDS ORDERED: SODIUM CHLORIDE 0.9% 1,000 ML IV SCH (04:00)
[2022-12-27] MEDS ORDERED: NALOXONE 0.4 MG/ML 1 ML VIAL IV PRN (04:00)
--- NOTE | 2022-12-27 04:09 | CT ---
EXAM: CT Head Without Intravenous Contrast CLINICAL HISTORY: ITS.REASON CT Reason: altered mental status TECHNIQUE: Axial computed tomography images of the head/brain without intravenous contrast. CTDI is 49.2 mGy and DLP is 1183.4 mGy-cm. This CT exam was performed using one or more of the following dose reduction techniques: automated exposure control, adjustment of the mA and/or kV according to patient size, and/or use of iterative reconstruction technique. COMPARISON: CT Head dated 11/20/22 FINDINGS: Brain: Mild volume loss with prominent ventricles and sulci. Periventricular white matter hypoattenuation likely reflects chronic small vessel disease. No hemorrhage. Ventricles: See above. Bones/joints: Unremarkable. No acute fracture. Soft tissues: Unremarkable. Sinuses: Unremarkable as visualized. No acute sinusitis. Mastoid air cells: Unremarkable as visualized. No mastoid effusion. IMPRESSION: No acute findings in the head/brain.
[2022-12-27 04:38] VITALS: BP 116/60; PULSE 76; RESP 20
== END 2022-12-27 05:38 | disposition left against medical advice (07) ==
LOC: EC 23:32
DX: U07.1 COVID-19 (principal); R41.82 Altered mental status, unspecified; I45.10 Unspecified right bundle-branch block; E11.9 Type 2 diabetes mellitus without complications; I25.2 Old myocardial infarction; Z79.84 Long term (current) use of oral hypoglycemic drugs; Z79.82 Long term (current) use of aspirin; Z79.899 Other long term (current) drug therapy; Z53.29 Procedure and treatment not carried out because of patient's decision for other reasons
CPT/HCPCS: 36415; 70450; 71046; 80053; 81003; 83735; 83880; 84484; 85025; 85610; 85730; 93005; 96360; 96361; 99285

== ENCOUNTER 2022-12-30 10:11 | Inpatient (IN) | payer MEDICARE ==
[2022-12-30] MEDS ORDERED: SODIUM CHLORIDE 0.9% 500 ML 500 ML IV ONE (11:10)
[2022-12-30] MEDS ORDERED: ALBUTEROL HFA INHALER INHALATION STA (11:11)
[2022-12-30 11:33] LABS: Basophils % (A) 0 %; Eosinophils # (A) 0.1 k/uL (0-0.7); Eosinophils % (A) 1 %; HCT 42.1 % (39.0-53.0); HGB 14.3 gm/dL (13.0-17.5); Lymphocytes # (A) 0.6 k/uL (1.0-4.8); Lymphocytes % (A) 13 %; MCH 30.6 pg (25.0-35.0); MCHC 33.9 g/dL (31.0-37.0); MCV 90.3 fL (80.0-100.0); Mean Platelet Volume 8.1; Monocytes # (A) 0.4 k/uL (0-1.0); Monocytes % (A) 8 %; Neutrophils # (A) 3.6 k/uL (1.3-7.7); Neutrophils % (A) 77 %; Platelet Count 169 k/uL (150-450); RBC 4.67 m/uL (4.30-5.90); WBC 4.6 k/uL (3.8-10.6)
--- NOTE | 2022-12-30 11:44 | ED ---
General Adult HPI - General Chief complaint: Altered Mental Status Stated complaint: Altered Mental Status Time Seen by Provider: 12/30/22 10:30 Source: patient, RN notes reviewed, old records reviewed Mode of arrival: ambulatory Limitations: no limitations - History of Present Illness Initial comments: This is an 87-year-old male who according to family had COVID and was discharged home about a week ago. Patient comes in today because the last few days he's had altered mental status confused at home and still having a cough. Patient himself denies any pain or problems at this time the family insists that he is altered. Patient states she's had a cold for about a week and for a while seem like he got a little better but now is getting worse. Patient's oxygenation also low. Patient has had no recent injuries or fall patient is not had any chest pain or palpitations patient denies headache. - Related Data Home Medications Medication Instructions Recorded Confirmed Tamsulosin HCl [Flomax] 0.4 mg PO HS 10/06/13 12/30/22 metFORMIN HCL [Glucophage] 500 mg PO BID 10/06/13 12/30/22 Dutasteride [Avodart] 0.5 mg PO HS 07/15/16 12/30/22 DULoxetine HCL [Cymbalta] 30 mg PO HS 12/24/19 12/30/22 Aspirin EC [Ecotrin Low Dose] 81 mg PO DAILY 08/28/20 12/30/22 Cholecalciferol [Vitamin D3 (25 25 mcg PO DAILY 08/28/20 12/30/22 Mcg = 1000 Iu)] Docusate [Colace] 100 mg PO HS 08/28/20 12/30/22 Magnesium Oxide [Escalona] 500 mg PO DAILY 08/28/20 12/30/22 Metoprolol Tartrate [Lopressor] 12.5 mg PO BID 08/28/20 12/30/22 Nitroglycerin Sl Tabs [Nitrostat] 0.4 mg SUBLINGUAL Q5M PRN 08/28/20 12/30/22 Vitamin K2 100 mcg PO DAILY 08/28/20 12/30/22 Zinc 50 mg PO DAILY 08/28/20 12/30/22 Cyanocobalamin (Vitamin B-12) 1,000 mcg PO HS 11/18/22 12/30/22 [Vitamin B-12] Folic Acid 0.4 mg PO HS 11/18/22 12/30/22 Rosuvastatin [Crestor] 10 mg PO HS 11/18/22 12/30/22 Saw [place] 500 mg PO DAILY 11/18/22 12/30/22 Sennosides [Senokot] 8.6 mg PO BID 11/18/22 12/30/22 polyethylene glycoL 3350 [Miralax] 17 gm PO DAILY 11/18/22 12/30/22 Previous Rx's Medication Instructions Recorded Melatonin 3 mg PO HS tab 11/22/22 QUEtiapine [SEROquel] 12.5 mg PO HS@2000 #15 tab 11/22/22 Molnupiravir [Lagevrio (Eua)] 200 mg PO BID 5 Days #40 cap 12/25/22 Allergies Allergy/AdvReac Type Severity Reaction Status Date / Time No Known Allergies Allergy Verified 12/30/22 10:19 Review of Systems ROS Statement: Those systems with pertinent positive or pertinent negative responses have been documented in the HPI. ROS Other: All systems not noted in ROS Statement are negative. Past Medical History Past Medical History: Diabetes Mellitus, Myocardial Infarction ([place]), Osteoarthritis (OA), Prostate Disorder, Skin Disorder Additional Past Medical History / Comment(s): Neuropathy. Psoriasis., Last Myocardial Infarction Date:: 2020 History of Any Multi-Drug Resistant Organisms: None Reported Past Surgical History: Back Surgery, Bowel Resection, Heart Catheterization With Stent Additional Past Surgical History / Comment(s): Back surgery X3. Past Anesthesia/Blood Transfusion Reactions: No Reported Reaction Date of Last Stent Placement:: 2020 Past Psychological History: No Psychological Hx Reported Smoking Status: Never smoker Past Alcohol Use History: None Reported Past Drug Use History: None Reported - Past Family History Father Family Medical History: Cancer Additional Family Medical History / Comment(s): Colon Cancer. Brother(s) Family Medical History: Cancer Additional Family Medical History / Comment(s): Colon Cancer. General Exam - General Exam Comments Initial Comments: GENERAL: Patient is well-developed and well-nourished. Patient is nontoxic and well- hydrated and is in mild distress. ENT: Neck is soft and supple. No significant lymphadenopathy is noted. Oropharynx is clear. Moist mucous membranes. Neck has full range of motion without eliciting any pain. EYES: The sclera were anicteric and conjunctiva were pink and moist. Extraocular movements were intact and pupils were equal round and reactive to light. Eyelids were unremarkable. PULMONARY: Unlabored respirations. Good breath sounds bilaterally. Patient has crackles in both bases but worse on the right than the left CARDIOVASCULAR: There is a regular rate and rhythm without any murmurs gallops or rubs. ABDOMEN: Soft and nontender with normal bowel sounds. SKIN: Skin is clear with no lesions or rashes and otherwise unremarkable. NEUROLOGIC: Patient is alert and oriented x3. Cranial nerves II through XII are grossly intact. Motor and sensory are also intact. Normal speech, volume and content. Symmetrical smile. MUSCULOSKELETAL: Normal extremities with adequate strength and full range of motion. No lower extremity swelling or edema. No calf tenderness. LYMPHATICS: No significant lymphadenopathy is noted PSYCHIATRIC: Normal psychiatric evaluation. Limitations: no limitations Course Vital Signs 12/30/22 12/30/22 12/30/22 10:16 10:41 11:19 Temperature 98 F Pulse Rate 92 84 65 Respiratory 18 20 16 Rate Blood Pressure 124/88 129/62 120/64 O2 Sat by Pulse 93 L 95 90 L Oximetry 12/30/22 12/30/22 12/30/22 12:00 13:00 14:00 Temperature Pulse Rate 82 82 88 Respiratory 20 20 16 Rate Blood Pressure 100/72 100/72 119/97 O2 Sat by Pulse 96 96 95 Oximetry Medical Decision Making - Medical Decision Making EKG shows sinus rhythm at 85 bpm ID interval 208 QRS IS UNDER 22 QT INTERVAL 368 QTC IS 410. PATIENT'S EKG SHOWS NO ST SEGMENT ELEVATION OR DEPRESSION. PATIENT HAS A RIGHT BUNDLE BRANCH BLOCK Was pt. sent in by a medical professional or institution (, PA, ALUMINUM POURER, urgent care, hospital, or group home...) When possible be specific @ -No Did you speak to anyone other than the patient for history (EMS, parent, family, police, friend...)? What history was obtained from this source @ - gave all of the history because the patient was altered mentally Did you review nursing and triage notes (agree or disagree)? Why? @ -I reviewed and agree with nursing and triage notes Were old charts reviewed (outside hosp., previous admission, EMS record, old EKG, old radiological studies, urgent care reports/EKG's, group home records)? Report findings @ -I reviewed the prior chart and labs on this patient Differential Diagnosis (chest pain, altered mental status, abdominal pain women, abdominal pain men, vaginal bleeding, weakness, fever, dyspnea, syncope, headache, dizziness, GI bleed, back pain, seizure, CVA, palpatations, mental health, musculoskeletal)? @ -Differential Altered Mental Status: Hypoglycemia, DKA, hypercapnia, ETOH, overdose, CO poisoning, trauma, myxedema coma, HTN encephalopathy, infection, encephalitis, psychosis, intercranial hemorrhage, hepatic encephalopathy, meningitis, CVA, this is not meant to be an all-inclusive list EKG interpreted by me (3pts min.). @ -As above X-rays interpreted by me (1pt min.). @ -Chest x-ray shows no acute abnormality CT interpreted by me (1pt min.). @ -None done U/S interpreted by me (1pt. min.). @ -None done What testing was considered but not performed or refused? (CT, X-rays, U/S, labs)? Why? @ -None What meds were considered but not given or refused? Why? @ -None Did you discuss the management of the patient with other professionals (professionals i.e. , PA, ALUMINUM POURER, lab, RT, psych nurse, licensed social worker, auditing specialist, teacher, resident medical officer, case fitter)? Give summary @ -I spoke with some physicians agreed to admit the patient admitted the patient I wrote admitting orders Was smoking cessation discussed for >3mins.? @ -No Was critical care preformed (if so, how long)? @ -No Were there social determinants of health that impacted care today? How? (Homelessness, low income, unemployed, alcoholism, drug addiction, transportation, low edu. Level, literacy, decrease access to med. care, alf, rehab)? @ -No Was there de-escalation of care discussed even if they declined (Discuss DNR or withdrawal of care, Hospice)? DNR status @ -No What co-morbidities impacted this encounter? (DM, HTN, Smoking, COPD, CAD, Cancer, CVA, ARF, Chemo, Hep., AIDS, mental health diagnosis, sleep apnea, morbid obesity)? @ -None Was patient admitted / discharged? Hospital course, mention meds given and r oute, prescriptions, significant lab abnormalities, going to OR and other pertinent info. @ -I went back and reevaluated the patient on multiple occasions patient still was very confused thought he was at home. Patient states he has to go home and start working on some project at work even though according to the he has nothing that he is to get done currently. states he is not getting any better since she's been in the emergency department. Undiagnosed new problem with uncertain prognosis? @ -No Drug Therapy requiring intensive monitoring for toxicity (Heparin, Nitro, Insulin, Cardizem)? @ -No Were any procedures done? @ -No Diagnosis/symptom? @ -Altered mental status Acute, or Chronic, or Acute on Chronic? @ -Acute Uncomplicated (without systemic symptoms) or Complicated (systemic symptoms)? @ -Complicated Side effects of treatment? @ -No Exacerbation, Progression, or Severe Exacerbation? @ -No Poses a threat to life or bodily function? How? (Chest pain, [place], HI, pneumonia, PE, COPD, DKA, ARF, appy, cholecystitis, CVA, Diverticulitis, Homicidal, Suicidal, threat to staff... and all critical care pts) @ -No Diagnosis/symptom? @ -COVID Acute, or Chronic, or Acute on Chronic? @ -Acute Uncomplicated (without systemic symptoms) or Complicated (systemic symptoms)? @ -Complicated Side effects of treatment? @ -none Exacerbation, Progression, or Severe Exacerbation] @ -no Poses a threat to life or bodily function? @ -no - Lab Data Result diagrams: 12/30/22 11:15 12/30/22 11:15 Lab Results 12/30/22 12/30/22 12/30/22 Range/Units 11:15 11:15 11:15 WBC 4.6 (3.8-10.6) k/uL RBC 4.67 (4.30-5.90) m/uL Hgb 14.3 (13.0-17.5) gm/dL Hct 42.1 (39.0-53.0) % MCV 90.3 (80.0-100.0) fL MCH 30.6 (25.0-35.0) pg MCHC 33.9 (31.0-37.0) g/dL RDW 13.0 (11.5-15.5) % Plt Count 169 (150-450) k/uL MPV 8.1 Neutrophils % 77 % Lymphocytes % 13 % Monocytes % 8 % Eosinophils % 1 % Basophils % 0 % Neutrophils # 3.6 (1.3-7.7) k/uL Lymphocytes # 0.6 L (1.0-4.8) k/uL Monocytes # 0.4 (0-1.0) k/uL Eosinophils # 0.1 (0-0.7) k/uL Basophils # 0.0 (0-0.2) k/uL PT 11.2 (10.0-12.5) sec INR 1.0 (<1.2) APTT 31.5 H (22.0-30.0) sec Sodium (137-145) mmol/L Potassium (3.5-5.1) mmol/L Chloride (98-107) mmol/L Carbon Dioxide (22-30) mmol/L Anion Gap mmol/L BUN (9-20) mg/dL Creatinine (0.66-1.25) mg/dL Est GFR (CKD-EPI)AfAm (>60 ml/min/1.73 sqM) Est GFR (CKD-EPI)NonAf (>60 ml/min/1.73 sqM) Glucose (74-99) mg/dL Lactic Ac Sepsis Rflx Plasma Lactic Acid Sal (0.7-2.0) mmol/L Calcium (8.4-10.2) mg/dL Magnesium (1.6-2.3) mg/dL Total Bilirubin (0.2-1.3) mg/dL AST (17-59) U/L ALT (4-49) U/L Alkaline Phosphatase (38-126) U/L Troponin I (0.000-0.034) ng/mL Total Protein (6.3-8.2) g/dL Albumin (3.5-5.0) g/dL Urine Color Yellow Urine Appearance Clear (Clear) Urine pH 6.0 (5.0-8.0) Ur Specific [place] 1.028 (1.001-1.035) Urine Protein 1+ H (Negative) Urine Glucose (UA) Negative (Negative) Urine Ketones Trace H (Negative) Urine Blood Negative (Negative) Urine Nitrite Negative (Negative) Urine Bilirubin Negative (Negative) Urine Urobilinogen 6.0 (<2.0) mg/dL Ur Leukocyte Esterase Negative (Negative) Urine RBC 2 (0-5) /hpf Urine WBC 3 (0-5) /hpf Ur Squamous Epith Cells <1 (0-4) /hpf Hyaline Casts 4 H (0-2) /lpf Urine Mucus Many H (None) /hpf 12/30/22 12/30/22 12/30/22 Range/Units 11:15 11:15 11:15 WBC (3.8-10.6) k/uL RBC (4.30-5.90) m/uL Hgb (13.0-17.5) gm/dL Hct (39.0-53.0) % MCV (80.0-100.0) fL MCH (25.0-35.0) pg MCHC (31.0-37.0) g/dL RDW (11.5-15.5) % Plt Count (150-450) k/uL MPV Neutrophils % % Lymphocytes % % Monocytes % % Eosinophils % % Basophils % % Neutrophils # (1.3-7.7) k/uL Lymphocytes # (1.0-4.8) k/uL Monocytes # (0-1.0) k/uL Eosinophils # (0-0.7) k/uL Basophils # (0-0.2) k/uL PT (10.0-12.5) sec INR (<1.2) APTT (22.0-30.0) sec Sodium 134 L (137-145) mmol/L Potassium 4.6 (3.5-5.1) mmol/L Chloride 97 L (98-107) mmol/L Carbon Dioxide 25 (22-30) mmol/L Anion Gap 12 mmol/L BUN 18 (9-20) mg/dL Creatinine 1.02 (0.66-1.25) mg/dL Est GFR (CKD-EPI)AfAm 76 (>60 ml/min/1.73 sqM) Est GFR (CKD-EPI)NonAf 66 (>60 ml/min/1.73 sqM) Glucose 162 H (74-99) mg/dL Lactic Ac Sepsis Rflx Plasma Lactic Acid Sal 3.6 H* (0.7-2.0) mmol/L Calcium 9.0 (8.4-10.2) mg/dL Magnesium 1.9 (1.6-2.3) mg/dL Total Bilirubin 1.0 (0.2-1.3) mg/dL AST 45 (17-59) U/L ALT 17 (4-49) U/L Alkaline Phosphatase 51 (38-126) U/L Troponin I 0.013 (0.000-0.034) ng/mL Total Protein 7.0 (6.3-8.2) g/dL Albumin 4.0 (3.5-5.0) g/dL Urine Color Urine Appearance (Clear) Urine pH (5.0-8.0) Ur Specific [place] (1.001-1.035) Urine Protein (Negative) Urine Glucose (UA) (Negative) Urine Ketones (Negative) Urine Blood (Negative) Urine Nitrite (Negative) Urine Bilirubin (Negative) Urine Urobilinogen (<2.0) mg/dL Ur Leukocyte Esterase (Negative) Urine RBC (0-5) /hpf Urine WBC (0-5) /hpf Ur Squamous Epith Cells (0-4) /hpf Hyaline Casts (0-2) /lpf Urine Mucus (None) /hpf /16/ Range/Units 11:53 WBC (3.8-10.6) k/uL RBC (4.30-5.90) m/uL Hgb (13.0-17.5) gm/dL Hct (39.0-53.0) % MCV (80.0-100.0) fL MCH (25.0-35.0) pg MCHC (31.0-37.0) g/dL RDW (11.5-15.5) % Plt Count (150-450) k/uL MPV Neutrophils % % Lymphocytes % % Monocytes % % Eosinophils % % Basophils % % Neutrophils # (1.3-7.7) k/uL Lymphocytes # (1.0-4.8) k/uL Monocytes # (0-1.0) k/uL Eosinophils # (0-0.7) k/uL Basophils # (0-0.2) k/uL PT (10.0-12.5) sec INR (<1.2) APTT (22.0-30.0) sec Sodium (137-145) mmol/L Potassium (3.5-5.1) mmol/L Chloride (98-107) mmol/L Carbon Dioxide (22-30) mmol/L Anion Gap mmol/L BUN (9-20) mg/dL Creatinine (0.66-1.25) mg/dL Est GFR (CKD-EPI)AfAm (>60 ml/min/1.73 sqM) Est GFR (CKD-EPI)NonAf (>60 ml/min/1.73 sqM) Glucose (74-99) mg/dL Lactic Ac Sepsis Rflx Y Plasma Lactic Acid Sal (0.7-2.0) mmol/L Calcium (8.4-10.2) mg/dL Magnesium (1.6-2.3) mg/dL Total Bilirubin (0.2-1.3) mg/dL AST (17-59) U/L ALT (4-49) U/L Alkaline Phosphatase (38-126) U/L Troponin I (0.000-0.034) ng/mL Total Protein (6.3-8.2) g/dL Albumin (3.5-5.0) g/dL Urine Color Urine Appearance (Clear) Urine pH (5.0-8.0) Ur Specific [place] (1.001-1.035) Urine Protein (Negative) Urine Glucose (UA) (Negative) Urine Ketones (Negative) Urine Blood (Negative) Urine Nitrite (Negative) Urine Bilirubin (Negative) Urine Urobilinogen (<2.0) mg/dL Ur Leukocyte Esterase (Negative) Urine RBC (0-5) /hpf Urine WBC (0-5) /hpf Ur Squamous Epith Cells (0-4) /hpf Hyaline Casts (0-2) /lpf Urine Mucus (None) /hpf Disposition Clinical Impression: Altered mental status, COVID Disposition: ADMITTED IP TO THIS HOSP Referrals: Kingston Thomas MD [Primary Care Provider] - 1-2 days Time of Disposition: 14:59
[2022-12-30 11:46] LABS: Partial Thromboplastin Time 31.5 sec (22.0-30.0); Prothrombin Time 11.2 sec (10.0-12.5)
[2022-12-30 12:58] LABS: ALT 17 U/L (4-49); AST 45 U/L (17-59); African American GFR (CKD) 76 (>60 ml/min/1.73 sqM); Alkaline Phosphatase 51 U/L (38-126); Anion Gap 12 mmol/L; Blood Urea Nitrogen 18 mg/dL (9-20); Carbon Dioxide 25 mmol/L (22-30); Chloride 97 mmol/L (98-107); Glucose 162 mg/dL (74-99); Magnesium 1.9 mg/dL (1.6-2.3); Non-African American GFR(CKD) 66 (>60 ml/min/1.73 sqM); Sodium 134 mmol/L (137-145)
--- NOTE | 2022-12-30 13:03 | XR ---
EXAMINATION TYPE: XR chest 2V DATE OF EXAM: 12/30/2022 COMPARISON: 12/27/2022 TECHNIQUE: PA and lateral views submitted. HISTORY: Confusion, cough FINDINGS: The lungs are clear and there is no pneumothorax, pleural effusion, or focal pneumonia. Heart size normal and no overt failure. Osseous structures demonstrate hypertrophic and degenerative changes of the spine. A limited inspiration with subsegmental changes at the left lung base. Atherosclerotic bianka nge aorta. Arthropathy of the shoulders with degenerative change of the spine. IMPRESSION: 1. Left basilar atelectasis or early infiltrate stable..
[2022-12-30 13:19] LABS: Potassium 4.6 mmol/L (3.5-5.1)
[2022-12-30 13:50] LABS: Appearance,Urine Clear (Clear); Bilirubin,Urine Negative (Negative); Blood,Urine Negative (Negative); Color,Urine Yellow; Glucose,Urine (UA) Negative (Negative); Hyaline Casts,Urine 4 /lpf (0-2); Ketones,Urine Trace (Negative); Leukocyte Esterase,Urine Negative (Negative); Mucus,Urine Many /hpf; Nitrite,Urine Negative (Negative); Protein,Urine 1+ (Negative); RBC,Urine 2 /hpf (0-5); Specific Gravity,Urine 1.028 (1.001-1.035); Squamous Epithelial Cell,Urine <1 /hpf (0-4); WBC,Urine 3 /hpf (0-5)
[2022-12-30] MEDS ORDERED: SODIUM CHLORIDE 0.9% 1,000 ML IV ONE ×2 (14:36→14:59)
[2022-12-30] MEDS ORDERED: LORazepam 2 MG/ML INJ IV STA (14:46)
[2022-12-30] MEDS ORDERED: QUEtiapine 25 MG TAB PO PRN (19:16)
[2022-12-30] MEDS ORDERED: ALBUTEROL NEBULIZED 2.5 MG/3 ML INHALATION PRN (19:21)
[2022-12-30] MEDS ORDERED: ACETAMINOPHEN TAB 325 MG TAB PO PRN (19:21)
[2022-12-30] MEDS ORDERED: NALOXONE 0.4 MG/ML 1 ML VIAL IV PRN (19:23)
[2022-12-30] MEDS ORDERED: bisacodyL 5 MG TABLET.DR PO PRN (19:23)
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
[2022-12-30] MEDS ORDERED: DEXTROSE 50% SYRINGE 50 ML IVP PRN ×2 (20:04)
[2022-12-30 21:00] LABS: Glucose,Whole Blood 108 mg/dL (70-110)
[2022-12-30] MEDS: DULoxetine HCL 30 MG CAPSULE.DR PO SCH (21:05)
[2022-12-30] MEDS: FOLIC ACID 1 MG TAB PO SCH (21:06)
[2022-12-30] MEDS: MELATONIN 3 MG TABLET PO SCH (21:08)
[2022-12-30] MEDS: ATORVASTATIN 20 MG TAB PO SCH (21:08)
[2022-12-30] MEDS: FINASTERIDE 5 MG TAB PO SCH (21:09)
[2022-12-30] MEDS: TAMSULOSIN 0.4 MG CAP.ER.24H PO SCH (21:09)
[2022-12-30] MEDS: METOPROLOL TARTRATE 12.5 MG TAB PO SCH (21:10)
[2022-12-30] MEDS: INSULIN ASPART (NovoLOG) 100 UNIT/ML VIAL SQ SCH (21:12)
[2022-12-30] MEDS: QUEtiapine 25 MG TAB PO SCH (21:15)
[2022-12-31] MEDS ORDERED: ALBUTEROL HFA INHALER INHALATION PRN (05:19)
[2022-12-31 07:10] LABS: African American GFR (CKD) >90 (>60 ml/min/1.73 sqM); Anion Gap 10 mmol/L; Blood Urea Nitrogen 17 mg/dL (9-20); Calcium 8.3 mg/dL (8.4-10.2); Carbon Dioxide 24 mmol/L (22-30); Chloride 103 mmol/L (98-107); Glucose 95 mg/dL (74-99); Non-African American GFR(CKD) 78 (>60 ml/min/1.73 sqM); Potassium 3.8 mmol/L (3.5-5.1); Sodium 137 mmol/L (137-145)
[2022-12-31 09:33] LABS: Glucose,Whole Blood 119 mg/dL (70-110)
[2022-12-31] MEDS: CHOLECALCIFEROL 25 MCG (1000 IU) TABLET PO SCH (09:42)
[2022-12-31] MEDS: METOPROLOL TARTRATE 12.5 MG TAB PO SCH ×2 (09:42→21:02)
[2022-12-31] MEDS: ASCORBIC ACID 500 MG TAB PO SCH (09:42)
[2022-12-31] MEDS: ENOXAPARIN 40 MG/0.4 ML SYRINGE SQ SCH (09:42)
[2022-12-31] MEDS: ASPIRIN 81 MG PO SCH (09:43)
[2022-12-31] MEDS: polyethylene glycoL 3350 17 GM POWD.PACK PO SCH (09:43)
[2022-12-31] MEDS: INSULIN ASPART (NovoLOG) 100 UNIT/ML VIAL SQ SCH ×4 (09:43→22:15)
[2022-12-31 10:30] LABS: Amphetamine Screen,Urine Not Detected (NotDetected); Barbiturate Screen,Urine Not Detected (NotDetected); Benzodiazepines Screen,Urine Not Detected (NotDetected); Cocaine Screen,Urine Not Detected (NotDetected); Methadone Screen, Urine Not Detected (NotDetected); Opiate Screen,Urine Not Detected (NotDetected); Oxycodone Screen, Urine Not Detected (NotDetected); Phencyclidine Screen,Urine Not Detected (NotDetected); Tricyclic Antidepressant,Urine Not Detected (NotDetected); Urn Cannabinoid Scrn Not Detected (NotDetected)
[2022-12-31 11:49] LABS: Glucose,Whole Blood 181 mg/dL (70-110)
--- NOTE | 2022-12-31 14:06 | P.PN ---
Subjective Progress Note Date: 12/31/22 (delayed charting seen at 0945) Patient is an 87 yo male with recent diagnosis of COVID on 12/25/22, BPH, dyslipidemia, who presented to the hospital at the direction of his PCP due to worsening hallucinations. Patient initially presented here on December 25 and was diagnosed with Covid, he came back on the with some increased confusion. Upon return to the ER today because initial vital signs were within normal limits. Initial laboratory analysis included CBC, PT, PTT, basic metabolic profile, lactic acid, calcium, liver studies, and pro-calcitonin which was unremarkable for lactic acid of 3.5, sodium 134, pro-calcitonin 0.10. Chest x-ray demonstrated left basilar atelectasis or early infiltrate. In the ER his O2 dropped to 87% on room air and he was subsequently put on 2 L nasal cannula. Arrangements were made for admission. The next morning his altered mentation was better after initiation of Seroquel. He did come back with 2 different bacteria and 1 set of blood cultures. This subsequently started on Rocephin and infectious disease was consulted Patient seen and examined at bedside. Her family present at bedside he was up until around 2 AM when he finally went to sleep. He is much less confused today. He is now able to follow simple commands and converse with me. He does recognize his . Vital signs reviewed General: nontoxic, no distress, appears at stated age Cardiovascular: S1S2 reg, no murmur, positive posterior tibial pulse bilateral, Lungs: CTA bilateral, no rhonchi, no rales , no accessory muscle use Abdominal: soft, nontender to palpation, no guarding, no appreciable organomegaly Ext: no gross muscle atrophy, no edema b/l lower extremities, no contractures Neuro: CN II-XI grossly intact, no focal neuro deficits Psych: Alert, oriented to self, jovial affect Assessment/Plan: COVID 19 infection Acute hypoxic respiratory failure Acute metabolic encenpalopathy with hallucinations and probable underlying cognitive decline - seroquel 12.5 mg at night, add for BID prn as well for agitation - continue to hold off on steroids as has been taking molnupiravir and concern for worsening confusion - Vitamin D 4000 units daily, vit C 1000 mg daily - follow O2 requirements Positive blood culture-strep and Mec A-negative staph per pharmacy - suspect contaminant -Start Rocephin 2 g IV every 24 hours -Repeat blood cultures -Consult ID Diabetes mellitus type 2 - hold glucophage - SSI with novolog -A1c 6.1 11/19/22 Chronic: BPH Osteoarthritis Coronary artery disease Neuropathy Psoriasis Imaging: None new Data Review: A CBC which is unremarkable, urine drug x-ray negative DVT prophylaxis: Lovenox Anticipated discharge date: in 24-[address]: This dictation was prepared using [employer] voice recognition software. Though every attempt is made to correct errors during dictation some may still exist. Objective - Vital Signs Vital signs: Vital Signs Temp 98.5 F 12/31/22 09:44 Pulse 64 12/31/22 13:00 Resp 18 12/31/22 13:00 BP 125/64 12/31/22 13:00 Pulse Ox 93 L 12/31/22 13:00 FiO2 Intake & Output 12/30/22 12/31/22 12/31/22 18:59 06:59 18:59 Weight 81.647 kg - Labs CBC & Chem 7: 12/30/22 11:15 12/31/22 06:07 Labs: Abnormal Lab Results - Last 24 Hours (Table) 12/30/22 12/30/22 12/31/22 Range/Units 11:15 11:15 06:07 POC Glucose (mg/dL) (70-110) mg/dL Hemoglobin A1c 6.2 H (<=6.0) % Calcium 8.3 L (8.4-10.2) mg/dL Procalcitonin 0.10 H (0.02-0.09) ng/mL 12/31/22 12/31/22 Range/Units 09:32 11:47 POC Glucose (mg/dL) 119 H 181 H (70-110) mg/dL Hemoglobin A1c (<=6.0) % Calcium (8.4-10.2) mg/dL Procalcitonin (0.02-0.09) ng/mL Microbiology - Last 24 Hours (Table) 12/30/22 11:16 Blood Culture Gram Stain - Preliminary Blood
[2022-12-31 17:11] LABS: Glucose,Whole Blood 140 mg/dL (70-110)
[2022-12-31] MEDS: QUEtiapine 25 MG TAB PO SCH (21:00)
[2022-12-31] MEDS: FINASTERIDE 5 MG TAB PO SCH (21:01)
[2022-12-31] MEDS: FOLIC ACID 1 MG TAB PO SCH (21:01)
[2022-12-31] MEDS: TAMSULOSIN 0.4 MG CAP.ER.24H PO SCH (21:01)
[2022-12-31] MEDS: ATORVASTATIN 20 MG TAB PO SCH (21:02)
[2022-12-31] MEDS: MELATONIN 3 MG TABLET PO SCH (21:03)
[2022-12-31] MEDS: DULoxetine HCL 30 MG CAPSULE.DR PO SCH (21:03)
--- NOTE | 2022-12-31 21:08 | P.CONS ---
History of Present Illness - Reason for Consult Consult date: 12/31/22 Bacteremia Requesting physician: Allison Vick - Chief Complaint Weakness and confusion x few days - History of Present Illness Patient is a 87-year-old male with a past medical history significant for diabetes mellitus [place] osteoarthritis psoriasis patient has been brought into the hospital for evaluation of acute mental status confusion at home patient symptom restarted about a week ago and the patient apparently was evaluated in this ER on 12/25/2022 and has been diagnosed with COVID-19 has been advised for symptomatic treatment however the patient has not been brought back to the hospital concerning for weakness and confusion the patient also have a cough which is mild to moderate intensity congested but unable to bring up any sputum. Denies any pleuritic chest pain denies having any nausea vomiting no choking reported no abdominal pain or diarrhea no urinary symptoms patient on presentation to the hospital did have low-grade fever 100.4 degree for night however no fever have recorded subsequently patient was nontachycardic or hypertension mildly hypoxic with O2 sats of 90% on room air currently 95% on 2 L nasal cannula oxygen patient has a normal white count with lymphopenia. Creatinine has been normal liver was in the normal lactic acid was elevated procalcitonin 0.10 urine was negative patient did have blood cultures drawn Been positive with gram-positive cocci in chains and clusters, patient did have a chest x-ray left basilar atelectasis or early infiltrate patient was started on Rocephin infectious disease was consulted for further management of antibiotic therapy Review of Systems Positive point and negatives has been mentioned in the HPI, complete review of systems was performed and all other systems are negative Past Medical History Past Medical History: Diabetes Mellitus, Myocardial Infarction (ME), Osteoarthritis (OA), Prostate Disorder, Skin Disorder Additional Past Medical History / Comment(s): Neuropathy. Psoriasis., Last Myocardial Infarction Date:: 2020 History of Any Multi-Drug Resistant Organisms: None Reported Past Surgical History: Back Surgery, Bowel Resection, Heart Catheterization With Stent Additional Past Surgical History / Comment(s): Back surgery X3. Past Anesthesia/Blood Transfusion Reactions: No Reported Reaction Date of Last Stent Placement:: 2020 Past Psychological History: No Psychological Hx Reported Smoking Status: Never smoker Past Alcohol Use History: None Reported Past Drug Use History: None Reported - Past Family History Father Family Medical History: Cancer Additional Family Medical History / Comment(s): Colon Cancer. Brother(s) Family Medical History: Cancer Additional Family Medical History / Comment(s): Colon Cancer. Medications and Allergies Home Medications Medication Instructions Recorded Confirmed Type Tamsulosin HCl [Flomax] 0.4 mg PO HS 10/06/13 12/30/22 History metFORMIN HCL [Glucophage] 500 mg PO BID 10/06/13 12/30/22 History Dutasteride [Avodart] 0.5 mg PO HS 07/15/16 12/30/22 History DULoxetine HCL [Cymbalta] 30 mg PO HS 12/24/19 12/30/22 History Aspirin EC [Ecotrin Low Dose] 81 mg PO DAILY 08/28/20 12/30/22 History Cholecalciferol [Vitamin D3 (25 25 mcg PO DAILY 08/28/20 12/30/22 History Mcg = 1000 Iu)] Docusate [Colace] 100 mg PO HS 08/28/20 12/30/22 History Magnesium Oxide [Escalona] 500 mg PO DAILY 08/28/20 12/30/22 History Metoprolol Tartrate [Lopressor] 12.5 mg PO BID 08/28/20 12/30/22 History Nitroglycerin Sl Tabs [Nitrostat] 0.4 mg SUBLINGUAL Q5M PRN 08/28/20 12/30/22 History Vitamin K2 100 mcg PO DAILY 08/28/20 12/30/22 History Zinc 50 mg PO DAILY 08/28/20 12/30/22 History Cyanocobalamin (Vitamin B-12) 1,000 mcg PO HS 11/18/22 12/30/22 History [Vitamin B-12] Folic Acid 0.4 mg PO HS 11/18/22 12/30/22 History Rosuvastatin [Crestor] 10 mg PO HS 11/18/22 12/30/22 History Saw [place] 500 mg PO DAILY 11/18/22 12/30/22 History Sennosides [Senokot] 8.6 mg PO BID 11/18/22 12/30/22 History polyethylene glycoL 3350 [Miralax] 17 gm PO DAILY 11/18/22 12/30/22 History Melatonin 3 mg PO HS tab 11/22/22 12/30/22 Rx QUEtiapine [SEROquel] 12.5 mg PO HS@2000 #15 tab 11/22/22 12/30/22 Rx Molnupiravir [Lagevrio (Eua)] 200 mg PO BID 5 Days #40 cap 12/25/22 12/30/22 Rx Allergies Allergy/AdvReac Type Severity Reaction Status Date / Time No Known Allergies Allergy Verified 12/30/22 10:19 Physical Exam Vitals: Vital Signs Temp Pulse Resp BP Pulse Ox 12/31/22 13:00 64 18 125/64 93 L 12/31/22 12:17 79 18 125/64 92 L 12/31/22 09:44 98.5 F 85 18 128/68 94 L 12/31/22 06:00 75 16 116/58 93 L 12/31/22 05:00 66 18 117/64 97 12/31/22 04:00 73 19 84/61 86 L 12/31/22 03:00 67 22 110/58 90 L 12/31/22 02:59 97.9 F 74 18 110/58 88 L 12/31/22 02:34 67 23 110/58 93 L 12/31/22 02:26 65 16 110/58 94 L 12/30/22 23:00 66 18 114/47 91 L 12/30/22 20:56 100.4 F H 81 20 115/70 92 L 12/30/22 20:00 80 22 128/66 92 L 12/30/22 19:00 80 24 98/60 92 L 12/30/22 18:00 81 77 H 117/84 94 L 12/30/22 17:00 80 36 H 99/57 94 L 12/30/22 16:00 87 22 119/65 93 L 12/30/22 15:00 86 27 H 127/76 93 L GENERAL DESCRIPTION: Elderly male lying in bed, no distress. No tachypnea or accessory muscle of respiration use. HEENT: Shows Pallor , no scleral icterus. Oral mucous membrane is dry. NECK: Trachea central, no thyromegaly. LUNGS: Unlabored breathing. Decreased breath sound at the bases HEART: S1, S2, regular rate and rhythm. No loud murmur ABDOMEN: Soft, no tenderness , guarding or rigidity, no organomegaly EXTREMITIES: No edema of feet. SKIN: No rash, no masses palpable. NEUROLOGICAL: The patient is awake, alert, oriented x3, mood and affect normal. Results CBC & Chem 7: 01/01/23 06:59 01/01/23 06:59 Labs: Abnormal Lab Results - Last 24 Hours (Table) 12/30/22 12/30/22 12/31/22 Range/Units 11:15 11:15 06:07 POC Glucose (mg/dL) (70-110) mg/dL Hemoglobin A1c 6.2 H (<=6.0) % Calcium 8.3 L (8.4-10.2) mg/dL Procalcitonin 0.10 H (0.02-0.09) ng/mL 12/31/22 12/31/22 Range/Units 09:32 11:47 POC Glucose (mg/dL) 119 H 181 H (70-110) mg/dL Hemoglobin A1c (<=6.0) % Calcium (8.4-10.2) mg/dL Procalcitonin (0.02-0.09) ng/mL Microbiology - Last 24 Hours (Table) 12/30/22 11:16 Blood Culture Gram Stain - Preliminary Blood Assessment and Plan (1) Bacteremia Current Visit: Yes Status: Acute Code(s): R78.81 - BACTEREMIA SNOMED Code(s): 1812091 (2) COVID-19 Current Visit: No Status: Acute Code(s): U07.1 - COVID-19 SNOMED Code(s): 670075231 Plan: 1patient with gram-positive bacteremia currently growing both the strep and as well as coagulase-negative staph high clinical suspicious for possible skin contamination, blood culture has been repeated document clearance of bacteremia 2-patient's symptoms are mostly related to underlying COVID-19 infection and seem to have shown some clinical improvement treatment will be mostly supportive no need for steroids or remdesivir at this point 3-we will check inflammatory markers 4-continue with empiric Rocephin no need for vancomycin We will follow on clinical condition and cultures to further adjust medication if needed Thank you for this consultation we will follow the patient along with you Dictation was produced using [employer] dictation software. please excuse any grammatical, word or spelling errors. Time with Patient: Greater than 30
[2022-12-31 21:49] LABS: Glucose,Whole Blood 150 mg/dL (70-110)
[2023-01-01 06:35] LABS: Glucose,Whole Blood 109 mg/dL (70-110)
[2023-01-01] MEDS: INSULIN ASPART (NovoLOG) 100 UNIT/ML VIAL SQ SCH ×4 (06:39→20:37)
[2023-01-01 07:32] LABS: African American GFR (CKD) >90 (>60 ml/min/1.73 sqM); Anion Gap 8 mmol/L; Blood Urea Nitrogen 12 mg/dL (9-20); Calcium 8.1 mg/dL (8.4-10.2); Carbon Dioxide 27 mmol/L (22-30); Chloride 101 mmol/L (98-107); Glucose 101 mg/dL (74-99); Non-African American GFR(CKD) 78 (>60 ml/min/1.73 sqM); Potassium 3.7 mmol/L (3.5-5.1); Sodium 136 mmol/L (137-145)
[2023-01-01 09:16] LABS: HCT 35.6 % (39.6-50.0); HGB 11.7 g/dL (13.0-17.0); MCH 29.1 pg (27.0-32.0); MCHC 32.9 g/dL (32.0-37.0); MCV 88.6 FL (80.0-97.0); Mean Platelet Volume 9.7 FL (9.5-12.2); NRBC Per 100 WBC 0 X 10*3/uL (0.00-0.01); Platelet Count 196 X 10*3/uL (140-440); RBC 4.02 X 10*6/uL (4.40-5.60); RDW 12.8 % (11.5-14.5); WBC 3.36 X 10*3/uL (4.50-10.00)
--- NOTE | 2023-01-01 09:22 | P.PN ---
Subjective Progress Note Date: 01/01/23 Patient is an 87 yo male with recent diagnosis of COVID on 12/25/22, BPH, dyslipidemia, who presented to the hospital at the direction of his PCP due to worsening hallucinations. Patient initially presented here on December 25 and was diagnosed with Covid, he came back on the with some increased confusion. Upon return to the ER today because initial vital signs were within normal limits. Initial laboratory analysis included CBC, PT, PTT, basic metabolic profile, lactic acid, calcium, liver studies, and pro-calcitonin which was unremarkable for lactic acid of 3.5, sodium 134, pro-calcitonin 0.10. Chest x-ray demonstrated left basilar atelectasis or early infiltrate. In the ER his O2 dropped to 87% on room air and he was subsequently put on 2 L nasal cannula. Arrangements were made for admission. The next morning his altered mentation was better after initiation of Seroquel. He did come back with 2 different bacteria and 1 set of blood cultures. This subsequently started on Rocephin and infectious disease was consulted Patient seen and examined at bedside with present. He denies any shortness of breath, nausea, vomiting. Today he is much more with it. He is easily able to follow commands. When asked what year it is he reports 2017, month December. He is able to tell me that his birthday is this month. Unable to tell me what holiday occurs in December. Per nursing no acute events overnight. Vital signs reviewed General: nontoxic, no distress, appears at stated age Cardiovascular: S1S2 reg, no murmur, positive posterior tibial pulse bilateral, Lungs: Decreased bs bilateral, no rhonchi, no rales , no accessory muscle use Abdominal: soft, nontender to palpation, no guarding, no appreciable organomegaly Ext: no gross muscle atrophy, no edema b/l lower extremities, no contractures Neuro: CN II-XI grossly intact, no focal neuro deficits Psych: Alert, oriented to self, jovial affect Assessment/Plan: COVID 19 infection Acute hypoxic respiratory failure Acute metabolic encenpalopathy with hallucinations and probable underlying cognitive decline - seroquel 12.5 mg at night, add for BID prn as well for agitation - continue to hold off on steroids as has been taking molnupiravir and concern for worsening confusion - Vitamin D 4000 units daily, vit C 1000 mg daily - follow O2 requirements Positive blood culture-strep and Mec A-negative staph per pharmacy - suspect contaminant - Rocephin 2 g IV every 24 hours D # 2 -Repeat blood cultures - ID note Reviewed. Agree with continuation of Rocephin, repeat cultures Diabetes mellitus type 2 - hold glucophage - SSI with novolog -A1c 6.1 11/19/22 Chronic: BPH Osteoarthritis Coronary artery disease Neuropathy Psoriasis Imaging: None new Data Review: Labs reviewed from today include a basic metabolic profile which is remarkable for sodium of 136, creatinine 0.85. Await CBC results Blood cultures 1 of 2 positive for staph neck a negative and strep. Await for final. DVT prophylaxis: Lovenox Anticipated discharge date: in 24-[address]: This dictation was prepared using [employer] voice recognition software. Though every attempt is made to correct errors during dictation some may still exist. Objective - Vital Signs Vital signs: Vital Signs Temp 98.5 F 01/01/23 02:00 Pulse 81 01/01/23 02:00 Resp 18 01/01/23 02:00 BP 122/66 01/01/23 02:00 Pulse Ox 94 L 01/01/23 02:00 FiO2 Intake & Output 12/31/22 01/01/23 01/01/23 18:59 06:59 18:59 Output Total 500 Balance -500 Weight 81.647 kg Output: Urine 500 Other: Voiding Method Urinal # Voids 0 - Labs CBC & Chem 7: 12/30/22 11:15 01/01/23 06:59 Labs: Abnormal Lab Results - Last 24 Hours (Table) 12/30/22 12/31/22 12/31/22 Range/Units 11:15 09:32 11:47 Sodium (137-145) mmol/L Glucose (74-99) mg/dL POC Glucose (mg/dL) 119 H 181 H (70-110) mg/dL Hemoglobin A1c 6.2 H (<=6.0) % Calcium (8.4-10.2) mg/dL 12/31/22 12/31/22 01/01/23 Range/Units 17:09 21:48 06:59 Sodium 136 L (137-145) mmol/L Glucose 101 H (74-99) mg/dL POC Glucose (mg/dL) 140 H 150 H (70-110) mg/dL Hemoglobin A1c (<=6.0) % Calcium 8.1 L (8.4-10.2) mg/dL Microbiology - Last 24 Hours (Table) 12/30/22 11:16 Blood Culture Gram Stain - Preliminary Blood 12/30/22 11:15 Blood Culture - Preliminary Blood
[2023-01-01] MEDS: METOPROLOL TARTRATE 12.5 MG TAB PO SCH ×2 (09:48→20:39)
[2023-01-01] MEDS: polyethylene glycoL 3350 17 GM POWD.PACK PO SCH (09:48)
[2023-01-01] MEDS: CHOLECALCIFEROL 25 MCG (1000 IU) TABLET PO SCH (09:48)
[2023-01-01] MEDS: ASCORBIC ACID 500 MG TAB PO SCH (09:48)
[2023-01-01] MEDS: ASPIRIN 81 MG PO SCH (09:48)
[2023-01-01] MEDS: ENOXAPARIN 40 MG/0.4 ML SYRINGE SQ SCH (09:50)
--- NOTE | 2023-01-01 11:43 | P.PN ---
Subjective Progress Note Date: 01/01/23 Principal diagnosis: Reason for follow-up is covid19 and positive blood culture Patient is a 87-year-old male with a past medical history significant for diabetes mellitus [place] osteoarthritis psoriasis patient has been brought into the hospital for evaluation of acute mental status confusion at home, patient has been recently diagnosed with a covid 19, and also have a positive blood culture with gram-positive cocci in cluster and change On today's evaluation that is 01/01/2023, the patient remains to be afebrile, the patient is breathing comfortably on 3 L nasal cannula oxygen, the patient denies shortness of breath, chest pain and no worsening cough , patient denies abdominal pain, no nausea/vomiting and no diarrhea has been reported, patient slightly sleepy today per the family at the bedside Patient did have one of 3.36, creatinine 0.5, blood culture with a nonhemolytic strep and coagulase negative staph Objective - Vital Signs Vital signs: Vital Signs Temp 97.8 F 01/01/23 07:48 Pulse 73 01/01/23 07:48 Resp 19 01/01/23 07:48 BP 105/58 01/01/23 07:48 Pulse Ox 91 L 01/01/23 07:48 FiO2 Intake & Output 12/31/22 01/01/23 01/01/23 18:59 06:59 18:59 Output Total 500 Balance -500 Weight 81.647 kg Output: Urine 500 Other: Voiding Method Urinal Urinal # Voids 0 - Exam GENERAL DESCRIPTION: An elderly male lying in bed in no distress RESPIRATORY SYSTEM: Unlabored breathing , decreased breath sounds at the base HEART: S1 S2 regular rate and rhythm , ABDOMEN: Soft , no tenderness EXTREMITIES: No edema feet - Labs CBC & Chem 7: 01/01/23 06:59 01/01/23 06:59 Labs: Abnormal Lab Results - Last 24 Hours (Table) 12/31/22 12/31/22 12/31/22 Range/Units 11:47 17:09 21:48 WBC (4.50-10.00) X 10*3/uL RBC (4.40-5.60) X 10*6/uL Hgb (13.0-17.0) g/dL Hct (39.6-50.0) % Sodium (137-145) mmol/L Glucose (74-99) mg/dL POC Glucose (mg/dL) 181 H 140 H 150 H (70-110) mg/dL Calcium (8.4-10.2) mg/dL 01/01/23 01/01/23 Range/Units 06:59 06:59 WBC 3.36 L (4.50-10.00) X 10*3/uL RBC 4.02 L (4.40-5.60) X 10*6/uL Hgb 11.7 L (13.0-17.0) g/dL Hct 35.6 L (39.6-50.0) % Sodium 136 L (137-145) mmol/L Glucose 101 H (74-99) mg/dL POC Glucose (mg/dL) (70-110) mg/dL Calcium 8.1 L (8.4-10.2) mg/dL Microbiology - Last 24 Hours (Table) 12/30/22 11:16 Blood Culture Gram Stain - Preliminary Blood Blood Culture - Preliminary Non Hemolytic Strep Coagulase Negative Staph 12/30/22 11:15 Blood Culture - Preliminary Blood Assessment and Plan (1) Bacteremia Current Visit: Yes Status: Acute Code(s): R78.81 - BACTEREMIA SNOMED Code(s): 2963256 (2) COVID-19 Current Visit: No Status: Acute Code(s): U07.1 - COVID-19 SNOMED Code(s): 723454462 Plan: 1patient with gram-positive bacteremia currently growing both the strep and as well as coagulase-negative staph and nonhemolytic strep high clinical suspicious for possible skin contamination, blood culture has been repeated document clearance of bacteremia 2-patient's symptoms are mostly related to underlying COVID-19 infection , the patient did have some clinical improvement treatment will be mostly supportive which will be continued 3patient to continue with empiric Rocephin and monitor clinical course closely Multiple family members at the bedside questions were answered Dictation was produced using [employer] software. please excuse any grammatical, word or spelling errors. Time with Patient: Less than 30
[2023-01-01 12:05] LABS: Glucose,Whole Blood 162 mg/dL (70-110)
[2023-01-01 16:43] LABS: Glucose,Whole Blood 150 mg/dL (70-110)
[2023-01-01 19:19] LABS: Glucose,Whole Blood 121 mg/dL (70-110)
[2023-01-01] MEDS: TAMSULOSIN 0.4 MG CAP.ER.24H PO SCH (20:40)
[2023-01-01] MEDS: DULoxetine HCL 30 MG CAPSULE.DR PO SCH (20:40)
[2023-01-01] MEDS: FOLIC ACID 1 MG TAB PO SCH (20:40)
[2023-01-01] MEDS: QUEtiapine 25 MG TAB PO SCH (20:40)
[2023-01-01] MEDS: MELATONIN 3 MG TABLET PO SCH (20:40)
[2023-01-01] MEDS: ATORVASTATIN 20 MG TAB PO SCH (20:40)
[2023-01-01] MEDS: FINASTERIDE 5 MG TAB PO SCH (20:41)
[2023-01-02 05:54] LABS: Glucose,Whole Blood 115 mg/dL (70-110)
[2023-01-02] MEDS: INSULIN ASPART (NovoLOG) 100 UNIT/ML VIAL SQ SCH ×2 (06:38→13:00)
[2023-01-02 08:21] VITALS: TEMP 98.1
[2023-01-02] MEDS: METOPROLOL TARTRATE 12.5 MG TAB PO SCH (08:26)
[2023-01-02] MEDS: ASCORBIC ACID 500 MG TAB PO SCH (08:26)
[2023-01-02] MEDS: ENOXAPARIN 40 MG/0.4 ML SYRINGE SQ SCH (08:27)
[2023-01-02] MEDS: ASPIRIN 81 MG PO SCH (08:27)
[2023-01-02] MEDS: polyethylene glycoL 3350 17 GM POWD.PACK PO SCH (08:27)
[2023-01-02] MEDS: CHOLECALCIFEROL 25 MCG (1000 IU) TABLET PO SCH (08:27)
[2023-01-02 11:53] LABS: Glucose,Whole Blood 183 mg/dL (70-110)
--- NOTE | 2023-01-02 12:13 | P.PN ---
Subjective Progress Note Date: 01/02/23 Principal diagnosis: Reason for follow-up is covid19 and positive blood culture Patient is a 87-year-old male with a past medical history significant for diabetes mellitus [place] osteoarthritis psoriasis patient has been brought into the hospital for evaluation of acute mental status confusion at home, patient has been recently diagnosed with a covid 19, and also have a positive blood culture with gram-positive cocci in cluster and change On today's evaluation that is 01/02/2023, the patient continues to be afebrile, the patient is breathing comfortably on room air and no need for supplemental oxygen, the patient denies chest pain shortness of breath did have Occasional dry , patient denies nausea/vomiting , no abdominal pain and no diarrhea has been reported Patient did have one of 3.36, creatinine 0.5 as of 01/01/2023, blood culture with a nonhemolytic strep, Corynebacterium species and coagulase negative staph Objective - Vital Signs Vital signs: Vital Signs Temp 98.1 F 01/02/23 07:17 Pulse 74 01/02/23 07:17 Resp 16 01/02/23 07:17 BP 109/58 01/02/23 07:17 Pulse Ox 91 L 01/02/23 09:23 FiO2 Intake & Output 01/01/23 01/02/23 01/02/23 18:59 06:59 18:59 Output Total 200 Balance -200 Output: Urine 200 Other: Voiding Method Urinal Urinal Urinal # Voids 1 - Exam GENERAL DESCRIPTION: An elderly male lying in bed in no distress RESPIRATORY SYSTEM: Unlabored breathing , decreased breath sounds at the base HEART: S1 S2 regular rate and rhythm , ABDOMEN: Soft , no tenderness EXTREMITIES: No edema feet - Labs CBC & Chem 7: 01/01/23 06:59 01/01/23 06:59 Labs: Abnormal Lab Results - Last 24 Hours (Table) 01/01/23 01/01/23 01/01/23 Range/Units 12:03 16:38 19:17 POC Glucose (mg/dL) 162 H 150 H 121 H (70-110) mg/dL 01/02/23 Range/Units 05:52 POC Glucose (mg/dL) 115 H (70-110) mg/dL Microbiology - Last 24 Hours (Table) 12/30/22 11:16 Blood Culture Gram Stain - Final Blood Blood Culture - Final Non Hemolytic Strep Coagulase Negative Staph Corynebacterium species 12/30/22 11:15 Blood Culture - Preliminary Blood Assessment and Plan (1) Bacteremia Current Visit: Yes Status: Acute Code(s): R78.81 - BACTEREMIA SNOMED Code(s): 5668175 (2) COVID-19 Current Visit: No Status: Acute Code(s): U07.1 - COVID-19 SNOMED Code(s): 365055178 Plan: 1patient with gram-positive bacteremia currently growing both the strep and as well as coagulase-negative staph , Corynebacterium species and nonhemolytic strep high clinical suspicious for possible skin contamination, blood culture has been repeated document clearance of bacteremia 2-patient's symptoms are mostly related to underlying COVID-19 infection , the patient did have some clinical improvement and continue with current supportive treatment 3Rocephin has been discontinued patient will monitor closely off antibiotic therapy Dictation was produced using [employer] dictation software. please excuse any grammatical, word or spelling errors. Time with Patient: Less than 30
[2023-01-02 14:40] VITALS: BP 112/67; RESP 18
[2023-01-02 15:06] VITALS: PULSE 81
--- NOTE | 2023-01-02 15:22 | P.DS ---
Providers Date of admission: 12/30/22 15:01 Expected date of discharge: 01/02/23 Attending physician: Flo Garcia MD Consults: 12/31/22 14:02 Consult Physician Routine Consulting Provider: Ravin Baumann Consult Reason/Comments: bacteremia Do you want consulting provider notified?: Yes Primary care physician: Kingston Thomas MD Hospital Course: Discharge Diagnosis: COVID 19 infection Acute hypoxic respiratory failure Acute metabolic encenpalopathy with hallucinations and probable underlying cognitive decline Contaminated blood culture- repeat negative for 24 hours Diabetes mellitus type 2 Chronic: BPH Osteoarthritis Coronary artery disease Neuropathy Psoriasis Hospital Course: Patient is an 87 yo male with recent diagnosis of COVID on 12/25/22, BPH, dyslipidemia, who presented to the hospital at the direction of his PCP due to worsening hallucinations. Patient initially presented here on December 25 and was diagnosed with Covid, he came back on the with some increased confusion. Upon return to the ER today because initial vital signs were within normal limits. Initial laboratory analysis included CBC, PT, PTT, basic metabolic profile, lactic acid, calcium, liver studies, and pro-calcitonin which was unremarkable for lactic acid of 3.5, sodium 134, pro-calcitonin 0.10. Chest x-ray demonstrated left basilar atelectasis or early infiltrate. In the ER his O2 dropped to 87% on room air and he was subsequently put on 2 L nasal cannula. Arrangements were made for admission. The next morning his altered mentation was better after initiation of Seroquel. He did come back 1 set of blood cultures which came back as contaminant him a repeat cultures negative for 24 hours. This subsequently started on Rocephin and infectious disease was consulted. He continued to do well. His mentation improved with the addition of Seroquel. He continued to be slightly confused but was getting more arousable every day and his hallucinations abated. His oxygen requirements diminished and was subsequently determined stable for discharge home. I did have multiple discussions with the family during her hospital stay that they should pursue outpatient neuropsych testing as I believe the patient has some memory loss pre-existing his recent hospital stays. does state she took over finances several years ago, and that she would not anticipate him to know the year which appears consistent with memory loss. Pulse Ox on RA with ambulation on day of discharge 92%. Follow-up: Dr. Thomas next week, seroquel 12.5 mg nightly, continue with Vit D and Vit C supplementation. Outpatient neuropsych testing, supervised environment no driving or operating heavy machinery. Patient seen and examined at bedside. He is doing better, no complaints, no shortness of breath, no nasuea. Vital signs reviewed and stable. General: nontoxic, no distress, appears at stated age Cardiovascular: S1S2 reg, no murmur, positive posterior tibial pulse bilateral, Lungs: CTA bilateral, no rhonchi, no rales , no accessory muscle use Abdominal: soft, nontender to palpation, no guarding, no appreciable organomegaly Ext: no gross muscle atrophy, no edema b/l lower extremities, no contractures Neuro: CN II-XI grossly intact, no focal neuro deficits Psych: Alert, oriented, appropriate affect A total of 35 minutes of time were spent preparing this complex discharge summary. Patient was discharged on 01/02/23. This dictation was prepared using [employer] voice recognition software. Though every attempt is made to correct errors during dictation some may still exist. Patient Condition at Discharge: Stable Plan - Discharge Summary Discharge Rx Participant: Yes New Discharge Prescriptions: New Albuterol Inhaler [Ventolin Hfa Inhaler] 2 puff INHALATION RT-Q6H PRN #1 each PRN Reason: Shortness Of Breath Or Wheezing Ascorbic Acid [Vitamin C] 1,000 mg PO DAILY tab Continue metFORMIN HCL [Glucophage] 500 mg PO BID Tamsulosin HCl [Flomax] 0.4 mg PO HS Dutasteride [Avodart] 0.5 mg PO HS DULoxetine HCL [Cymbalta] 30 mg PO HS Nitroglycerin Sl Tabs [Nitrostat] 0.4 mg SUBLINGUAL Q5M PRN PRN Reason: Chest Pain Zinc 50 mg PO DAILY Docusate [Colace] 100 mg PO HS Metoprolol Tartrate [Lopressor] 12.5 mg PO BID Magnesium Oxide [Escalona] 500 mg PO DAILY Cholecalciferol [Vitamin D3 (25 Mcg = 1000 Iu)] 25 mcg PO DAILY Aspirin EC [Ecotrin Low Dose] 81 mg PO DAILY Folic Acid 0.4 mg PO HS Cyanocobalamin (Vitamin B-12) [Vitamin B-12] 1,000 mcg PO HS polyethylene glycoL 3350 [Miralax] 17 gm PO DAILY Sennosides [Senokot] 8.6 mg PO BID Rosuvastatin [Crestor] 10 mg PO HS Vitamin K2 100 mcg PO DAILY [place] 500 mg PO DAILY Melatonin 3 mg PO HS tab QUEtiapine [SEROquel] 12.5 mg PO HS@1999 #15 tab Discontinued Molnupiravir [Lagevrio (Eua)] 200 mg PO BID 5 Days #40 cap Discharge Medication List Tamsulosin HCl [Flomax] 0.4 mg PO HS 10/06/13 [History] metFORMIN HCL [Glucophage] 500 mg PO BID 10/06/13 [History] Dutasteride [Avodart] 0.5 mg PO HS 07/15/16 [History] DULoxetine HCL [Cymbalta] 30 mg PO HS 12/24/19 [History] Aspirin EC [Ecotrin Low Dose] 81 mg PO DAILY 08/28/20 [History] Cholecalciferol [Vitamin D3 (25 Mcg = 1000 Iu)] 25 mcg PO DAILY 08/28/20 [History] Docusate [Colace] 100 mg PO HS 08/28/20 [History] Magnesium Oxide [Escalona] 500 mg PO DAILY 08/28/20 [History] Metoprolol Tartrate [Lopressor] 12.5 mg PO BID 08/28/20 [History] Nitroglycerin Sl Tabs [Nitrostat] 0.4 mg SUBLINGUAL Q5M PRN 08/28/20 [History] Vitamin K2 100 mcg PO DAILY 08/28/20 [History] Zinc 50 mg PO DAILY 08/28/20 [History] Cyanocobalamin (Vitamin B-12) [Vitamin B-12] 1,000 mcg PO HS 11/18/22 [History] Folic Acid 0.4 mg PO HS 11/18/22 [History] Rosuvastatin [Crestor] 10 mg PO HS 11/18/22 [History] [place] 500 mg PO DAILY 11/18/22 [History] Sennosides [Senokot] 8.6 mg PO BID 11/18/22 [History] polyethylene glycoL 3350 [Miralax] 17 gm PO DAILY 11/18/22 [History] Melatonin 3 mg PO HS tab 11/22/22 [Rx] Albuterol Inhaler [Ventolin Hfa Inhaler] 2 puff INHALATION RT-Q6H PRN #1 each 01/02/23 [Rx] Ascorbic Acid [Vitamin C] 1,000 mg PO DAILY tab 01/02/23 [Rx] QUEtiapine [SEROquel] 12.5 mg PO HS@2000 #15 tab 01/02/23 [Rx] Follow up Appointment(s)/Referral(s): [facility], [NON-STAFF] - 1-2 Days Kingston Thomas MD [Primary Care Provider] - 1-2 days Activity/Diet/Wound Care/Special Instructions: Activity: As tolerated Diet: Regular Special Instructions: Please set up an appointment with Neuropsych for testing Navdeep rae [facility] [email or web address] No driving or operating heavy machinery Continue Seroquel until seen by Dr. Thomas If appetite is low you can utilize ensure or boost Discharge Disposition: HOME WITH HOME HEALTH SERVICES
== END 2023-01-02 17:28 | disposition home health service (06) | DRG 177 ==
LOC: EC 10:11 → 4SSUR 15:01
PROVIDERS: ADMIT Internal Medicine; ATTEND Internal Medicine
DX: U07.1 COVID-19 (principal); G93.41 Metabolic encephalopathy; J96.01 Acute respiratory failure with hypoxia; N17.9 Acute kidney failure, unspecified; E11.649 Type 2 diabetes mellitus with hypoglycemia without coma; L40.9 Psoriasis, unspecified; M19.90 Unspecified osteoarthritis, unspecified site; E78.5 Hyperlipidemia, unspecified; I25.10 Atherosclerotic heart disease of native coronary artery without angina pectoris; I25.2 Old myocardial infarction; I10 Essential (primary) hypertension; G62.9 Polyneuropathy, unspecified; I45.10 Unspecified right bundle-branch block; N40.0 Benign prostatic hyperplasia without lower urinary tract symptoms; Z79.82 Long term (current) use of aspirin; Z79.84 Long term (current) use of oral hypoglycemic drugs
CPT/HCPCS: 36415; 71046; 80048; 80053; 80306; 81001; 83036; 83605; 83735; 84145; 84484; 85025; 85027; 85610; 85730; 87040; 87070; 87205; 93005; 94640; 94760; 96361; 96365; 96372; 96375; 99285

== ENCOUNTER 2023-05-23 13:23 | Emergency (ER) | payer MEDICARE ==
[2023-05-23 13:44] VITALS: PULSE 67; TEMP 97.9
--- NOTE | 2023-05-23 14:19 | ED ---
General Adult HPI - General Chief complaint: Dizziness Stated complaint: Dizziness Time Seen by Provider: 05/23/23 13:48 Source: patient, family, RN notes reviewed Mode of arrival: wheelchair Limitations: no limitations - History of Present Illness Initial comments: Patient is a pleasant 88-year-old male presenting to the emergency department with concerns for dizziness. Symptoms have been occurring for at least 6 weeks. Symptoms are intermittent. Sometimes they last for hours or more. Symptoms usually worsen when he is upright. Patient has been off balance a couple times and did fall and hit his left ribs. Patient states that was a couple weeks ago and he still has some discomfort there. Family states he did hit his head. No loss of consciousness. No speech problems. No visual changes. No extremity weakness. No confusion or change in mental status. Patient does have history of previous vertigo with similar symptoms. - Related Data Home Medications Medication Instructions Recorded Confirmed Tamsulosin HCl [Flomax] 0.4 mg PO HS 10/06/13 12/30/22 metFORMIN HCL [Glucophage] 500 mg PO BID 10/06/13 12/30/22 Dutasteride [Avodart] 0.5 mg PO HS 07/15/16 12/30/22 DULoxetine HCL [Cymbalta] 30 mg PO HS 12/24/19 12/30/22 Aspirin EC [Ecotrin Low Dose] 81 mg PO DAILY 08/28/20 12/30/22 Cholecalciferol [Vitamin D3 (25 25 mcg PO DAILY 08/28/20 12/30/22 Mcg = 1000 Iu)] Docusate [Colace] 100 mg PO HS 08/28/20 12/30/22 Magnesium Oxide [Escalona] 500 mg PO DAILY 08/28/20 12/30/22 Metoprolol Tartrate [Lopressor] 12.5 mg PO BID 08/28/20 12/30/22 Nitroglycerin Sl Tabs [Nitrostat] 0.4 mg SUBLINGUAL Q5M PRN 08/28/20 12/30/22 Vitamin K2 [Vitamin K-2] 100 mcg PO DAILY 08/28/20 12/30/22 Zinc 50 mg PO DAILY 08/28/20 12/30/22 Cyanocobalamin (Vitamin B-12) 1,000 mcg PO HS 11/18/22 12/30/22 [Vitamin B-12] Folic Acid 0.4 mg PO HS 11/18/22 12/30/22 Rosuvastatin [Crestor] 10 mg PO HS 11/18/22 12/30/22 Saw [place] 500 mg PO DAILY 11/18/22 12/30/22 Sennosides [Senokot] 8.6 mg PO BID 11/18/22 12/30/22 polyethylene glycoL 3350 [Miralax] 17 gm PO DAILY 11/18/22 12/30/22 Previous Rx's Medication Instructions Recorded Melatonin 3 mg PO HS tab 11/22/22 Albuterol Inhaler [Ventolin Hfa 2 puff INHALATION RT-Q6H PRN #1 01/02/23 Inhaler] each Ascorbic Acid [Vitamin C] 1,000 mg PO DAILY tab 01/02/23 QUEtiapine [SEROquel] 12.5 mg PO HS@1999 #15 tab 01/02/23 Meclizine [Antivert] 25 mg PO TID PRN #12 tab 05/23/23 Allergies Allergy/AdvReac Type Severity Reaction Status Date / Time No Known Allergies Allergy Verified 05/23/23 17:30 Review of Systems ROS Statement: Those systems with pertinent positive or pertinent negative responses have been documented in the HPI. ROS Other: All systems not noted in ROS Statement are negative. Constitutional: Denies: fever Eyes: Denies: eye pain ENT: Denies: ear pain Respiratory: Denies: cough, dyspnea Cardiovascular: Denies: chest pain Endocrine: Denies: fatigue Gastrointestinal: Denies: abdominal pain, nausea, vomiting Genitourinary: Denies: dysuria Musculoskeletal: Denies: back pain Skin: Denies: rash Neurological: Denies: headache, weakness, confusion Past Medical History Past Medical History: Diabetes Mellitus, Myocardial Infarction ([place]), Osteoarthritis ([place]), Prostate Disorder, Skin Disorder Additional Past Medical History / Comment(s): Neuropathy. Psoriasis., Last Myocardial Infarction Date:: 2020 History of Any Multi-Drug Resistant Organisms: None Reported Past Surgical History: Back Surgery, Bowel Resection, Heart Catheterization With Stent Additional Past Surgical History / Comment(s): Back surgery X3. Past Anesthesia/Blood Transfusion Reactions: No Reported Reaction Date of Last Stent Placement:: 2020 Past Psychological History: No Psychological Hx Reported Smoking Status: Never smoker Past Alcohol Use History: None Reported Past Drug Use History: None Reported - Past Family History Father Family Medical History: Cancer Additional Family Medical History / Comment(s): Colon Cancer. Brother(s) Family Medical History: Cancer Additional Family Medical History / Comment(s): Colon Cancer. General Exam Limitations: no limitations General appearance: alert, in no apparent distress Head exam: Present: atraumatic, normocephalic Eye exam: Present: normal appearance, PERRL, EOMI. Absent: nystagmus ENT exam: Present: normal oropharynx Neck exam: Present: normal inspection. Absent: tenderness, meningismus Respiratory exam: Present: normal lung sounds bilaterally, chest wall tenderness ( left lower anterior lateral chest wall) Cardiovascular Exam: Present: regular rate, normal rhythm GI/Abdominal exam: Present: soft. Absent: distended, tenderness, guarding, rebound, rigid Extremities exam: Present: normal inspection, full ROM. Absent: tenderness Neurological exam: Present: alert, CN II-XII intact. Absent: motor sensory def icit Expanded Neurological exam: Present: protecting the airway Speech: Present: fluid speech Cranial nerves: EOM's Intact: Normal, Facial Sensation: Normal Sensory exam: Upper Extremity Light Touch: Normal, Lower Extremity Light Touch: Normal Motor strength exam: RUE: 5, LUE: 5, RLE: 5, LLE: 5 Eye Response: (4) open spontaneously Motor Response: (6) obeys commands Verbal Response: (5) oriented Psychiatric exam: Present: normal affect, normal mood Skin exam: Present: normal color Course Vital Signs 05/23/23 05/23/23 13:36 14:22 Temperature 97.9 F Pulse Rate 67 Pulse Rate [ 69 Sitting Desk Manager] Pulse Rate [ 76 Standing Desk Manager ] Pulse Rate [ 67 Supine Desk Manager] Respiratory 16 18 Rate Blood Pressure 127/74 Blood Pressure 133/64 [Right Arm Sitting] Blood Pressure 115/60 [Right Arm Standing] Blood Pressure 127/63 [Right Arm Supine] O2 Sat by Pulse 95 97 Oximetry EKG Findings - EKG Results: EKG: interpreted by JULIANA (Left axis. Right bundle branch block.), sinus rhythm, normal ST/T EKG shows: bradycardia Medical Decision Making - Medical Decision Making Was pt. sent in by a medical professional or institution (, PA, MUSIC MANAGER, urgent care, hospital, or senior living...) When possible be specific @ -No Did you speak to anyone other than the patient for history (EMS, parent, family, police, friend...)? What history was obtained from this source @ -Family is present and helps provide history Did you review nursing and triage notes (agree or disagree)? Why? @ -I reviewed and agree with nursing and triage notes Were old charts reviewed (outside hosp., previous admission, EMS record, old EKG, old radiological studies, urgent care reports/EKG's, senior living records)? Report findings @ -No old charts were reviewed Differential Diagnosis (chest pain, altered mental status, abdominal pain women, abdominal pain men, vaginal bleeding, weakness, fever, dyspnea, syncope, headache, dizziness, GI bleed, back pain, seizure, CVA, palpatations, mental health, musculoskeletal)? @ -Differential Dizziness: Benign paroxysmal positional Vertigo, Menieres disease, otitis media, acoustic neuroma, vertebrobasilar insufficiency, cerebellar stroke, encephalitis, hypovolemic, arrhythmia, coronary artery syndrome, anemia, this is not meant to be an all-inclusive list EKG interpreted by me (3pts min.). @ -As above X-rays interpreted by me (1pt min.). @ -Chest x-ray with rib x-ray showed no acute process CT interpreted by me (1pt min.). @ -CT brain does not reveal acute abnormality. U/S interpreted by me (1pt. min.). @ -None done What testing was considered but not performed or refused? (CT, X-rays, U/S, labs)? Why? @ -None What meds were considered but not given or refused? Why? @ -None Did you discuss the management of the patient with other professionals (professionals i.e. , PA, MUSIC MANAGER, lab, RT, psych nurse, social media developer, paving supervisor, teacher, corporate compliance officer, child welfare caseworker)? Give summary @ -No Was smoking cessation discussed for >3mins.? @ -No Was critical care preformed (if so, how long)? @ -No Were there social determinants of health that impacted care today? How? (Homelessness, low income, unemployed, alcoholism, drug addiction, transportation, low edu. Level, literacy, decrease access to med. care, long term, rehab)? 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 DNR status @ -No What co-morbidities impacted this encounter? (DM, HTN, Smoking, COPD, CAD, Cancer, CVA, ARF, Chemo, Hep., AIDS, mental health diagnosis, sleep apnea, morbid obesity)? @ -None Was patient admitted / discharged? Hospital course, mention meds given and route, prescriptions, significant lab abnormalities, going to OR and other pertinent info. @ -Patient reevaluated and feeling much better. Patient able to get up and walk around without any difficulty. Patient and family are comfortable with discharge home. Updated on results and need for follow-up. Undiagnosed new problem with uncertain prognosis? @ -No Drug Therapy requiring intensive monitoring for toxicity (Heparin, Nitro, Insulin, Cardizem)? @ -No Were any procedures done? @ -No Diagnosis/symptom? @ -Lightheadedness Acute, or Chronic, or Acute on Chronic? @ -Acute Uncomplicated (without systemic symptoms) or Complicated (systemic symptoms)? @ -Default Side effects of treatment? @ -No Exacerbation, Progression, or Severe Exacerbation? @ -No Poses a threat to life or bodily function? How? (Chest pain, [place], [place], pneumonia, PE, COPD, DKA, ARF, appy, cholecystitis, CVA, Diverticulitis, Homicidal, Suicidal, threat to staff... and all critical care pts) @ -No - Lab Data Result diagrams: 05/23/23 14:21 05/23/23 14:21 Lab Results 05/23/23 05/23/23 05/23/23 Range/Units 14:21 14:21 14:21 WBC 6.4 (3.8-10.6) k/uL RBC 4.65 (4.30-5.90) m/uL Hgb 13.3 (13.0-17.5) gm/dL Hct 41.3 (39.0-53.0) % MCV 88.8 (80.0-100.0) fL MCH 28.6 (25.0-35.0) pg MCHC 32.2 (31.0-37.0) g/dL RDW 13.9 (11.5-15.5) % Plt Count 204 (150-450) k/uL MPV 8.1 Neutrophils % 66 % Lymphocytes % 21 % Monocytes % 6 % Eosinophils % 5 % Basophils % 1 % Neutrophils # 4.2 (1.3-7.7) k/uL Lymphocytes # 1.3 (1.0-4.8) k/uL Monocytes # 0.4 (0-1.0) k/uL Eosinophils # 0.3 (0-0.7) k/uL Basophils # 0.0 (0-0.2) k/uL PT 10.1 (10.0-12.5) sec INR 0.9 (<1.2) APTT 29.1 (22.0-30.0) sec Sodium 139 (137-145) mmol/L Potassium 4.3 (3.5-5.1) mmol/L Chloride 106 (98-107) mmol/L Carbon Dioxide 23 (22-30) mmol/L Anion Gap 10 mmol/L BUN 14 (9-20) mg/dL Creatinine 0.87 (0.66-1.25) mg/dL Est GFR (CKD-EPI)AfAm 89 (>60 ml/min/1.73 sqM) Est GFR (CKD-EPI)NonAf 77 (>60 ml/min/1.73 sqM) Glucose 140 H (74-99) mg/dL Calcium 9.2 (8.4-10.2) mg/dL Total Bilirubin 0.7 (0.2-1.3) mg/dL AST 23 (17-59) U/L ALT 11 (4-49) U/L Alkaline Phosphatase 72 (38-126) U/L Creatine Kinase 48 L (55-170) U/L Total Protein 6.2 L (6.3-8.2) g/dL Albumin 3.9 (3.5-5.0) g/dL Disposition Clinical Impression: Lightheadedness Disposition: HOME SELF-CARE Condition: Stable Instructions (If sedation given, give patient instructions): Dizziness (ED) Additional Instructions: Please do follow-up with your primary care physician in the next 1 or 2 days for recheck. Consider follow-up with ENT and neurology. Discussed this with your primary care physician. Prescription for Antivert has been sent to pharmacy. This is also available [id number]. Return for increased dizziness, off balance, falling, worsening symptoms or other concerns. Prescriptions: Meclizine [Antivert] 25 mg PO TID PRN #12 tab PRN Reason: dizziness Is patient prescribed a controlled substance at d/c from ED?: No Referrals: Kingston Thomas MD [Primary Care Provider] - 1-2 days Theodore Georges MD [STAFF PHYSICIAN] - 1-2 days Time of Disposition: 17:33
[2023-05-23 14:27] LABS: Basophils % (A) 1 %; Eosinophils # (A) 0.3 k/uL (0-0.7); Eosinophils % (A) 5 %; HCT 41.3 % (39.0-53.0); HGB 13.3 gm/dL (13.0-17.5); Lymphocytes # (A) 1.3 k/uL (1.0-4.8); Lymphocytes % (A) 21 %; MCH 28.6 pg (25.0-35.0); MCHC 32.2 g/dL (31.0-37.0); MCV 88.8 fL (80.0-100.0); Mean Platelet Volume 8.1; Monocytes # (A) 0.4 k/uL (0-1.0); Monocytes % (A) 6 %; Neutrophils # (A) 4.2 k/uL (1.3-7.7); Neutrophils % (A) 66 %; Platelet Count 204 k/uL (150-450); RBC 4.65 m/uL (4.30-5.90); RDW 13.9 % (11.5-15.5); WBC 6.4 k/uL (3.8-10.6)
[2023-05-23 14:40] LABS: INR 0.9 (<1.2); Partial Thromboplastin Time 29.1 sec (22.0-30.0); Prothrombin Time 10.1 sec (10.0-12.5)
[2023-05-23 14:51] LABS: ALT 11 U/L (4-49); AST 23 U/L (17-59); African American GFR (CKD) 89 (>60 ml/min/1.73 sqM); Albumin 3.9 g/dL (3.5-5.0); Alkaline Phosphatase 72 U/L (38-126); Anion Gap 10 mmol/L; Blood Urea Nitrogen 14 mg/dL (9-20); Calcium 9.2 mg/dL (8.4-10.2); Carbon Dioxide 23 mmol/L (22-30); Chloride 106 mmol/L (98-107); Creatine Kinase 48 U/L (55-170); Glucose 140 mg/dL (74-99); Non-African American GFR(CKD) 77 (>60 ml/min/1.73 sqM); Potassium 4.3 mmol/L (3.5-5.1); Sodium 139 mmol/L (137-145); Total Bilirubin 0.7 mg/dL (0.2-1.3); Total Protein 6.2 g/dL (6.3-8.2)
[2023-05-23 15:08] VITALS: RESP 18
[2023-05-23] MEDS: MECLIZINE 12.5 MG TAB PO STA (15:25)
--- NOTE | 2023-05-23 16:39 | CT ---
EXAMINATION TYPE: CT brain wo con DATE OF EXAM: 05/23/2023 COMPARISON: 12/27/2022 INDICATION: dizziness DLP: 1550.2 mGycm, Automated exposure control for dose reduction was used. CONTRAST: None CT of the brain is performed utilizing 3 mm thick sections through the posterior fossa and 3 mm thick sections through the remaining calvarium. Study is performed within 24 hours of arrival to the hosp ital. No abnormal hyperdensity is present to suggest an acute intracranial hemorrhage. No mass lesion is evident. No acute infarcts are evident. Mild chronic appearing periventricular white matter hypodensity is pre sent, likely on the basis of chronic white matter ischemic changes. Hypoechoic areas adjacent to the right lateral ventricle in the centrum semiovale is new from the comparison study but appears to be a n old type change. Ventricles and sulci are appropriate for the patient age. Paranasal sinuses and mastoid air cells within the [id number] are clear. IMPRESSION: 1. No acute intracranial process. Follow-up MRI can be performed as clinically indicated. 2. Old appearing chronic white matter ischemic-type change in the right centrum semiovale.
--- NOTE | 2023-05-23 16:42 | XR ---
Single view chest and left ribs HISTORY: Pain following fall. COMPARISON: Chest dated 12/30/2022. TECHNIQUE: PA view the chest and 4 views left ribs are obtained FINDINGS: Lungs are clear. There is no pleural effusion or pneumothorax. The heart and pulmonary vasculature ar e normal. Osseous structures , including the left ribs , are intact without fracture.. No trauma to the left sh oulder or clavicle. IMPRESSION: 1. No acute cardiac pulmonary disease. 2. No rib fracture.
--- NOTE | 2023-05-23 16:47 | CT ---
EXAMINATION TYPE: CT angio head neck DATE OF EXAM: 05/23/2023 HISTORY: dizziness COMPARISON: None CT DLP: 1550.2 mGycm. Automated Exposure Control for Dose Reduction was Utilized. TECHNIQUE: CTA scan of the head and neck is performed with IV Contrast, patient injected with 65 mL of Isovue 370, axial images are obtained, coronal and sagittal reformatted images are reviewed. 3D re constructed images are created on an independent workstation and reviewed. FINDINGS: The brachiocephalic origins are widely patent and no significant stenosis. There is no significant stenosis of the common or internal carotid arteries within the neck. There is mild plaque at the left carotid bifurcation resulting in less than 20% stenosis of the distal common proximal internal carotid artery. There is no stenosis of the vertebral arteries. Intracranially, there is no stenosis, segmental occlusion, sizable aneurysm sac or vascular malformat ion. IMPRESSION:. 1. No significant stenosis of the brachiocephalic origins. 2. Mild calcified plaque left carotid bifurcation resulting in mild less than 20% stenosis of the dis katie common and proximal left internal carotid artery. 3. No right common or internal carotid artery stenosis within the neck. 4. No occlusive disease, aneurysm sac or vascular malformation intracranially. NASCET criteria was used in interpretation of this exam?
[2023-05-23 18:17] VITALS: BP 154/54
== END 2023-05-23 17:56 | disposition home or self-care (01) ==
LOC: EC 13:23
DX: R42 Dizziness and giddiness (principal); I45.10 Unspecified right bundle-branch block; R00.1 Bradycardia, unspecified
CPT/HCPCS: 36415; 93005; 80053; 82550; 85025; 85610; 85730; 71101; 70496; 70450; 70498; 99284; Q9967

== ENCOUNTER 2023-09-29 20:27 | Emergency (ER) | payer MEDICARE ==
[2023-09-30] MEDS ORDERED: LORazepam 1 MG TAB ONE (11:42)
== END 2023-09-30 15:00 ==
LOC: EC 20:27
DX: R45.851 Suicidal ideations (principal)
CPT/HCPCS: 99285

== ENCOUNTER 2023-12-07 16:49 | Emergency (ER) | payer MEDICARE ==
[2023-12-07 17:17] VITALS: RESP 20
--- NOTE | 2023-12-07 18:14 | ED ---
Abdominal Pain HPI - General Chief Complaint: Abdominal Pain Stated Complaint: constipated/weakness Time Seen by Provider: 12/07/23 17:06 Source: patient, family, RN notes reviewed Mode of arrival: wheelchair Limitations: no limitations - History of Present Illness Initial Comments: This is an 88-year-old male presenting with constipation x 3 days. Patient endorses history of constipation at least twice per year attributed to poor fluid intake. Patient endorses bilateral lower quadrant pain as well as rectal pain. Patient endorses use of suppositories, MiraLAX and senna tea with minimal rate relief. Patient Dors is history of diabetes. Patient denies nausea/vomiting, anorexia, fever, chills, hematochezia, melena, chest pain, dyspnea. MD Complaint: abdominal pain Onset/Timin -: hour(s), days(s) Location: LLQ, RLQ Migration to: other Severity: moderate Quality: aching Consistency: constant Improves With: nothing Context: other (Constipation) Associated Symptoms: constipation Treatments Prior to Arrival: other (MiraLAX, suppositories, senna tea) - Related Data Home Medications Medication Instructions Recorded Confirmed Tamsulosin HCl [Flomax] 0.4 mg PO HS 10/06/13 05/23/23 metFORMIN HCL [Glucophage] 500 mg PO DAILY 10/06/13 05/23/23 Dutasteride [Avodart] 0.5 mg PO HS 07/15/16 05/23/23 DULoxetine HCL [Cymbalta] 30 mg PO BID 12/24/19 05/23/23 Aspirin EC [Ecotrin Low Dose] 81 mg PO DAILY 08/28/20 05/23/23 Cholecalciferol [Vitamin D3 (25 25 mcg PO HS 08/28/20 05/23/23 Mcg = 1000 Iu)] Docusate [Colace] 100 mg PO DAILY 08/28/20 05/23/23 Magnesium Oxide [Escalona] 500 mg PO DAILY 08/28/20 05/23/23 Metoprolol Tartrate [Lopressor] 12.5 mg PO HS 08/28/20 05/23/23 Zinc 50 mg PO DAILY 08/28/20 05/23/23 Cyanocobalamin (Vitamin B-12) 1,000 mcg PO DAILY 11/18/22 05/23/23 [Vitamin B-12] Folic Acid 0.4 mg PO HS 11/18/22 05/23/23 Rosuvastatin [Crestor] 10 mg PO HS 11/18/22 05/23/23 Saw Stella 500 mg PO DAILY 11/18/22 05/23/23 Docusate [Colace] 200 mg PO HS 05/23/23 05/23/23 Metoprolol Tartrate [Lopressor] 25 mg PO DAILY 05/23/23 05/23/23 Previous Rx's Medication Instructions Recorded Meclizine [Antivert] 25 mg PO TID PRN #12 tab 05/23/23 Allergies Allergy/AdvReac Type Severity Reaction Status Date / Time No Known Allergies Allergy Verified 05/23/23 17:30 Review of Systems ROS Statement: Those systems with pertinent positive or pertinent negative responses have been documented in the HPI. ROS Other: All systems not noted in ROS Statement are negative. Past Medical History Past Medical History: Diabetes Mellitus, Myocardial Infarction (CT), Osteoarthritis (OA), Prostate Disorder, Skin Disorder Additional Past Medical History / Comment(s): Neuropathy. Psoriasis., Last Myocardial Infarction Date:: 2020 History of Any Multi-Drug Resistant Organisms: None Reported Past Surgical History: Back Surgery, Bowel Resection, Heart Catheterization With Stent Additional Past Surgical History / Comment(s): Back surgery X3. Past Anesthesia/Blood Transfusion Reactions: No Reported Reaction Date of Last Stent Placement:: 2020 Past Psychological History: No Psychological Hx Reported Smoking Status: Never smoker Past Alcohol Use History: None Reported Past Drug Use History: None Reported - Past Family History Father Family Medical History: Cancer Additional Family Medical History / Comment(s): Colon Cancer. Brother(s) Family Medical History: Cancer Additional Family Medical History / Comment(s): Colon Cancer. General Exam Limitations: no limitations General appearance: alert, in no apparent distress Head exam: Present: atraumatic, normocephalic, normal inspection Eye exam: Present: normal appearance, PERRL, EOMI. Absent: scleral icterus, conjunctival injection, periorbital swelling ENT exam: Present: normal exam, mucous membranes moist Neck exam: Present: normal inspection. Absent: tenderness, meningismus, lymphadenopathy Respiratory exam: Present: normal lung sounds bilaterally. Absent: respiratory distress, wheezes, rales, rhonchi, stridor Cardiovascular Exam: Present: regular rate, normal rhythm, normal heart sounds. Absent: systolic murmur, diastolic murmur, rubs, gallop, clicks GI/Abdominal exam: Present: soft, distended, normal bowel sounds, hyperactive bowel sounds (Diffuse hyperactive and high-pitched bowel sounds). Absent: tenderness, guarding, rebound, rigid Rectal exam: Present: fecal impaction Extremities exam: Present: normal inspection, full ROM, normal capillary refill. Absent: tenderness, pedal edema, joint swelling, calf tenderness Back exam: Present: normal inspection Neurological exam: Present: alert, oriented X3, CN II-XII intact Psychiatric exam: Present: normal affect, normal mood Skin exam: Present: warm, dry, intact, normal color. Absent: rash Course Vital Signs 12/07/23 17:12 Temperature 98 F Pulse Rate 104 H Respiratory 20 Rate Blood Pressure 123/59 O2 Sat by Pulse 97 Oximetry Medical Decision Making - Medical Decision Making Was pt. sent in by a medical professional or institution (, PA, WORKFORCE CONSULTANT, urgent care, hospital, or detention...) When possible be specific @ -No Did you speak to anyone other than the patient for history (EMS, parent, family, police, friend...)? What history was obtained from this source @ -No Did you review nursing and triage notes (agree or disagree)? Why? @ -I reviewed and agree with nursing and triage notes Were old charts reviewed (outside hosp., previous admission, EMS record, old EKG, old radiological studies, urgent care reports/EKG's, detention records)? Report findings @ -No old charts were reviewed Differential Diagnosis (chest pain, altered mental status, abdominal pain women, abdominal pain men, vaginal bleeding, weakness, fever, dyspnea, syncope, headache, dizziness, GI bleed, back pain, seizure, CVA, palpatations, mental health, musculoskeletal)? @ -Differential Abdominal Pain Men: Appendicitis, cholecystitis, diverticulosis, ischemic bowel, pancreatitis, hepatitis, UTI, gastroenteritis, AAA, incarcerated hernia, bowel obstruction, constipation, inflammatory bowel, hepatitis, peptic ulcer disease, splenic infarction, perforated viscus, testicular torsion, this is not meant to be an all-inclusive list EKG interpreted by me (3pts min.). @ -Not done X-rays interpreted by me (1pt min.). @ -KUB showed diffuse fecal material in colon and 8 mm nephrolithiasis in the left kidney CT interpreted by me (1pt min.). @ -None done U/S interpreted by me (1pt. min.). @ -None done What testing was considered but not performed or refused? (CT, X-rays, U/S, labs)? Why? @ -None What meds were considered but not given or refused? Why? @ -None Did you discuss the management of the patient with other professionals (professionals i.e. DrJavier, PA, WORKFORCE CONSULTANT, lab, RT, psych nurse, social media sr strategy manager, appetizer packer, teacher, field crop technical officer, immigration case worker)? Give summary @ -No Was smoking cessation discussed for >3mins.? @ -No Was critical care preformed (if so, how long)? @ -No Were there social determinants of health that impacted care today? How? (Homelessness, low income, unemployed, alcoholism, drug addiction, transportation, low edu. Level, literacy, decrease access to med. care, long-term, rehab)? @ -No Was there de-escalation of care discussed even if they declined (Discuss DNR or withdrawal of care, Hospice)? DNR status @ -No What co-morbidities impacted this encounter? (DM, HTN, Smoking, COPD, CAD, Cancer, CVA, ARF, Chemo, Hep., AIDS, mental health diagnosis, sleep apnea, morbid obesity)? @ -DM Was patient admitted / discharged? Hospital course, mention meds given and route, prescriptions, significant lab abnormalities, going to OR and other pertinent info. @ -Discharge. Occult blood checked was positive KUB reveals colon filled with fecal material without air-fluid levels. Toradol IM given for pain. Enema performed. Patient discharged to continue previously use over the counter medication for constipation Undiagnosed new problem with uncertain prognosis? @ -No Drug Therapy requiring intensive monitoring for toxicity (Heparin, Nitro, Insulin, Cardizem)? @ -No Were any procedures done? @ -Enema performed by RN Diagnosis/symptom? @ -Constipation Acute, or Chronic, or Acute on Chronic? @ -Acute Uncomplicated (without systemic symptoms) or Complicated (systemic symptoms)? @ -Uncomplicated Side effects of treatment? @ -No Exacerbation, Progression, or Severe Exacerbation? @ -No Poses a threat to life or bodily function? How? (Chest pain, USA, CT, pneumonia, PE, COPD, DKA, ARF, appy, cholecystitis, CVA, Diverticulitis, Homicidal, Suicidal, threat to staff... and all critical care pts) @ -No - Lab Data Lab Results 12/07/23 Range/Units 18:25 Stool Occult Blood Positive (Negative) Disposition Clinical Impression: Constipation Disposition: HOME SELF-CARE Condition: Good Additional Instructions: Advise increase water and fiber intake. Continue previously used [id number] medication use Is patient prescribed a controlled substance at d/c from ED?: No Referrals: Kingston Thomas MD [Primary Care Provider] - 1-2 days Time of Disposition: 19:45
[2023-12-07] MEDS: KETOROLAC 15 MG/ML 1 ML VIAL IM STA (18:22)
--- NOTE | 2023-12-07 18:55 | XR ---
EXAMINATION TYPE: XR KUB DATE OF EXAM: 12/07/2023 6:38 PM CLINICAL INDICATION: Male, 88 years old with history of Abdominal pain, constipation; [facility] COMPARISON: 11/18/2022. TECHNIQUE: One radiographic view of the abdomen was obtained. FINDINGS: The bowel gas pattern is nonspecific without dilated loops of small or large bowel. . Fecal material and gas are demonstrated throughout the colon and rectum. There is no evidence for organomegaly or pneumoperitoneum. The osseous structures are intact. Left renal calculi measuring up to 8 mm. Multilevel degeneration changes of the spine. IMPRESSION: 1. Left renal calculi abdomen 8 mm suggested. 2. Nonspecific bowel gas pattern without radiographic evidence for acute process. [facility], , 12/07/2023 6:53 PM
[2023-12-07 20:28] VITALS: BP 125/82; PULSE 76; TEMP 98.2
== END 2023-12-07 20:33 | disposition home or self-care (01) ==
LOC: EC 16:49
DX: K59.00 Constipation, unspecified (principal)
CPT/HCPCS: 36415; 74018; 82272; 96372; 99284